=== PATIENT | male | born 1945 | race Caucasian/White ===

== ENCOUNTER 2016-12-05 07:54 | Inpatient (IN) | payer OTHER, MEDICARE ==
[~2016-12-05 07:54] MED LIST: ACETAMINOPHEN 325 MG TAB PO ONE; CEFAZOLIN 2 GM/DEXTR 100 ML IV ONE; CHLORHEXIDINE GLUC HIBICLENS 118 ML BTL TP ONE; DEXAMETHASONE 4 MG/ML VIAL IVP ONE; FAMOTIDINE 20 MG TAB PO ONE; ROPI IU ONE; SKIN ADHESIVE (DERMABOND) 1 EACH TP ONE; TRANEXAMIC ACID 3,000 MG in NS 50 ML IRR ONE; TRANEXAMIC ACID 3,000 MG/50 ML BAG IRR ONE; VANCOMYCIN 1 GM VIAL IV ONE; [UNRECOGNIZED DRUG - OTHER] IU ONE
[2016-12-05] MEDS ORDERED: DEXAMETHASONE 4 MG/ML VIAL ONE ×2 (08:22→09:56)
[2016-12-05] MEDS ORDERED: FAMOTIDINE 20 MG TAB ONE (08:22)
[2016-12-05] MEDS ORDERED: ACETAMINOPHEN 325 MG TAB ONE (08:22)
[2016-12-05] MEDS ORDERED: LIDOCAINE 1% 5 ML SDV ONE (08:23)
[2016-12-05] MEDS ORDERED: LR 1,000 ML IV ONE (08:55)
[2016-12-05] MEDS ORDERED: LIDOCAINE 1% 5 ML SDV ID PRN (08:55)
[2016-12-05] MEDS ORDERED: PROPOFOL/EMULSION 500 MG/50 ML BOTTLE IV ONE (09:51)
[2016-12-05] MEDS ORDERED: fentaNYL 100 MCG/2 ML INJ ONE ×3 (09:51→12:40)
[2016-12-05] MEDS ORDERED: MIDAZOLAM 2 MG/2 ML VIAL ONE (09:54)
[2016-12-05] MEDS ORDERED: HYDROmorphONE/DILAUDID 2 MG/ML INJ ONE (10:29)
[2016-12-05] MEDS ORDERED: epHEDrine SULFATE 10 MG/ML SYR ONE ×2 (10:34→10:40)
[2016-12-05] MEDS ORDERED: VASOPRESSIN 20 UNIT/ML VIAL ONE (10:40)
[2016-12-05] MEDS ORDERED: ONDANSETRON 4 MG/2 ML VIAL ONE (11:32)
[2016-12-05] MEDS ORDERED: DIPHENOXYLATE/ATROPINE LOMOTIL 1 TAB PO PRN (11:37)
[2016-12-05] MEDS ORDERED: METOCLOPRAMIDE 10 MG/2 ML VIAL IVP PRN (11:37)
[2016-12-05] MEDS ORDERED: PROMETHAZINE HCL 25 MG/ML INJ IVP PRN (11:37)
[2016-12-05] MEDS ORDERED: PROMETHAZINE HCL 25 MG SUPPR PR PRN (11:37)
[2016-12-05] MEDS ORDERED: MAGNESIUM HYDROXIDE 30 ML UDCUP PO PRN (11:37)
[2016-12-05] MEDS ORDERED: POLYETHYLENE GLYCOL 3350 17 GM PKT PO PRN (11:37)
[2016-12-05] MEDS ORDERED: CYCLOBENZAPRINE 10 MG TAB PO PRN (11:37)
[2016-12-05] MEDS ORDERED: ONDANSETRON 4 MG/2 ML VIAL IVP PRN (11:37)
[2016-12-05] MEDS ORDERED: ONDANSETRON DISINTEGRATING 4 MG TAB PO PRN (11:37)
[2016-12-05] MEDS ORDERED: LACTULOSE 20 GM/30 ML UDCUP PO PRN (11:37)
[2016-12-05] MEDS ORDERED: PHARMACY PAIN CONSULT 1 EA MISC PRN (11:37)
[2016-12-05] MEDS ORDERED: TEMAZEPAM 15 MG CAP PO PRN (11:37)
[2016-12-05] MEDS ORDERED: diphenhydrAMINE 25 MG CAP PO PRN (11:37)
[2016-12-05] MEDS ORDERED: BISACODYL 10 MG SUPP PR PRN (11:37)
--- NOTE | 2016-12-05 11:37 | POSTOPPROG ---
Post Op Note Date of Operation: 12/05/16 Surgeon: Judith Hurt Production Tester: jose martin hurt Anesthesiologist: dr. melchor Anesthesia: Spinal Pre-op Diagnosis: R knee OA Post-op Diagnosis: same Indication: right knee pain due to OA that failed conservative measuresq Procedure: R TKA Findings: severe knee OA Inf/Abcess present in the surg proc area at time of surgery?: No EBL: 50-100
[2016-12-05] MEDS ORDERED: HYDROmorphONE/DILAUDID 1 MG/ML SYR ONE (11:58)
[2016-12-05] MEDS ORDERED: LR 1,000 ML IV SCH (12:00)
[2016-12-05] MEDS ORDERED: oxyCODONE IR 5 MG TAB ONE (12:13)
[2016-12-05] MEDS ORDERED: ceFAZolin 2 GM/DEXTROSE 100 ML IV SCH (14:00)
[2016-12-05] MEDS: ACETAMINOPHEN 325 MG TAB PO SCH ×3 (14:19→23:56)
[2016-12-05] MEDS: oxyCODONE IR 5 MG TAB PO PRN ×3 (15:12→21:05)
[2016-12-05] MEDS ORDERED: WARFARIN SODIUM 5 MG TAB PO SCH (16:00)
[2016-12-05] MEDS: ceFAZolin 2 GM in D5W 100 ML IV SCH ×2 (17:00→22:44)
[2016-12-05] MEDS ORDERED: ATORVASTATIN CALCIUM 20 MG TAB PO SCH (18:00)
[2016-12-05] MEDS ORDERED: NON-FORMULARY NEW DRUG (Omeprazole [Prilosec 20 Mg] 20 MG) PO SCH (18:00)
[2016-12-05] MEDS ORDERED: PANTOPRAZOLE SODIUM 40 MG TAB PO SCH (18:00)
--- NOTE | 2016-12-05 19:03 | GOP ---
DATE OF OPERATION: 12/05/2016 SURGEON: Tom Gonzales MD MASONRY INSPECTOR: YOVANY Meza ANESTHESIA: Spinal. PREOPERATIVE DIAGNOSIS: Right knee osteoarthritis. POSTOPERATIVE DIAGNOSIS: Right knee osteoarthritis. PROCEDURE PERFORMED: Right total knee arthroplasty. FINDINGS: ESTIMATED BLOOD LOSS: 30 cc. INDICATIONS: This is a 71-year-old male with severe and progressive pain and deformity of the right knee unresponsive to conservative care. Risks and benefits of the surgical intervention were expla ined in detail. DESCRIPTION OF PROCEDURE: The patient was brought to the operative room and placed on the table in the supine position. Spinal anesthesia was induced without difficulty. A pneumatic tourniquet was applied about the right proximal thigh, and the leg was prepped and draped in a sterile fashion. Th e leg montgomery was applied. After exsanguination by elevation the tourniquet was inflated to 250 mm o f mercury. Incision was made anterior medial from the tibial tuberosity to a point 2 cm proximal to the superio r pole of the patella. Medial parapatellar arthrotomy was carried out from the superior pole of the patella and posteriorly in line with the fibers of the Type II VMO. The medial collateral ligament was elevated and the infrapatellar fat pad was resected. The patella was everted and the articular surface was excised. A 35 mm patellar button was placed. The distal femoral guide hole was drilled and the 6-degree alignment cherry was placed. A 10 mm distal femoral cut was made without difficulty. Attention was turned to the tibia and a standard 6 mm cut based on the distal and medial tibial cond yle was performed. The tibial articular surface was excised without difficulty. Attention was turned back to the femur and a size 5 Triathlon femoral cutting block was positioned. Anterior, posterior, and chamfer cuts were made, followed by the intercondylar box cut. The knee was extended and the remnants of the medial and lateral meniscus were excised. The posteri or capsule was injected with ropivacaine, epinephrine and Toradol. A size 6 MIS Mini-keel tibial tr ay was positioned. Trial reduction was then carried out. There was excellent range of motion, alig nment, and stability using the 9 mm polyethylene. All trials were then removed. The joint was thoroughly irrigated and carefully dried. Two packages of cement and 2 grams of vancomycin were mixed in the vacuum mixer and placed on the fixation surfa diana of all surfaces of the components. The components were implanted and all excess cement was thor oughly removed. The permanent 9 mm polyethylene was placed without difficulty. The tourniquet was deflated and all bleeders were coagulated. The wound was thoroughly irrigated an d closed using interrupted sutures of 2-0 Vicryl for the joint capsule. The subcu was closed with 3 -0 Vicryl and the skin with 4-0 Monocryl. Dermabond and Steri-Strips were applied followed by a com pressive dressing. The patient was then moved from the operating room to the recovery room in good condition, having tolerated the procedure well. PATHOLOGY: Severe lateral and patellofemoral osteoarthritis. /[id number]/MODL
[2016-12-05] MEDS: SENNOSIDES/DOCUSATE SODIUM TAB PO SCH (21:05)
[2016-12-06 00:46] VITALS: O2SAT 96
[2016-12-06] MEDS ORDERED: ceFAZolin 2 GM in D5W 100 ML IV SCH (01:00)
[2016-12-06] MEDS: ACETAMINOPHEN 325 MG TAB PO SCH ×2 (05:16→11:21)
[2016-12-06 05:31] LABS: HEMATOCRIT 32.8 % (40.0-51.0); HEMOGLOBIN 10.8 g/dL (13.7-17.5)
[2016-12-06 05:49] LABS: ANION GAP 9 mEq/L (8-16); CALCIUM 8.7 mg/dL (8.5-10.4); CARBON DIOXIDE 22 mEq/l (22-31); CHLORIDE 105 mEq/L (97-110); CREATININE 1.8 mg/dL (0.7-1.3); GLOMERULAR FILTRATION RATE 37; GLUCOSE 146 mg/dL (70-100); POTASSIUM 5.3 mEq/L (3.5-5.2); SODIUM 136 mEq/L (134-144)
[2016-12-06 05:52] LABS: INR 1.12 (0.83-1.16); PROTIME(PATIENT) 14.3 SEC (12.0-15.0)
[2016-12-06 07:52] VITALS: BP 103/59; PULSE 66; RESP 18; TEMP 97.7
[2016-12-06] MEDS: oxyCODONE IR 5 MG TAB PO PRN ×2 (08:05→12:24)
[2016-12-06] MEDS: SENNOSIDES/DOCUSATE SODIUM TAB PO SCH (08:06)
[2016-12-06] MEDS ORDERED: ENOXAPARIN 40 MG/0.4 ML SYR SC SCH (09:00)
[2016-12-06] MEDS ORDERED: FAMOTIDINE 20 MG TAB PO SCH (09:00)
--- NOTE | 2016-12-06 09:29 | SOAPPROG ---
SOAP Progress Note Assessment/Plan: Assessment: Patient is doing well POD 1 s/p R TKA 1.Pain management: pain is well controlled on oral pain meds 2.Anemia: level is expected initially postop. Asymptomatic. Cont to monitor for symptoms 3.VTE ppx: recommend coumadin and lovenox. INR today 1.12 Cont [facility] hosmindy and SCD 4. d/c planning: d/c to home today pending release from PT. 5. CKD: stable. prior to surgery Cr was 1.9, today 1.8 Plan: 12/06/16 09:26 Subjective: Eliel is doing well today, denies SOB, chest pain and N/V. Objective: Vital Signs Temp Pulse Resp BP Pulse Ox 36.5 C 66 18 103/59 L 96 12/06/16 07:51 12/06/16 07:51 12/06/16 07:51 12/06/16 07:51 12/06/16 07:51 Laboratory Results 12/06/16 04:26 12/06/16 04:26 12/05/16 12/06/16 12/07/16 05:59 05:59 05:59 Intake Total 2955 Output Total 1105 Balance 1850 PT 14.3 SEC (12.0-15.0) 12/06/16 04:26 INR 1.12 (0.83-1.16) 12/06/16 04:26 RLE: incision dressing is clean and dry, NVI, +pf/df ICD10 Worksheet Patient Problems: Problems Problem Status Onset Primary localized osteoarthritis of right knee Acute History of primary bladder cancer Chronic Parastomal hernia of ileal conduit Chronic
--- NOTE | 2016-12-06 10:05 | GDS ---
ADMISSION DIAGNOSIS: Right knee osteoarthritis. DISCHARGE DIAGNOSIS: Right knee osteoarthritis. PROCEDURE: Right total knee arthroplasty. VTE PROPHYLAXIS: Coumadin and Lovenox recommended. BRIEF DESCRIPTION OF HOSPITAL STAY: Patient was admitted for an elective joint arthroplasty. The p atient tolerated the procedure well and has passed physical therapy. The patient was given appropri ate antibiotic prophylaxis and venous thromboembolism prophylaxis. The patient's pain was well cont rolled on oral pain medication, patient was holding down food, and had urinated. Decision was made to discharge the patient. The patient was given post-operative prescriptions pre-operatively. PLAN: To follow up with Dr. Gonzales at [facility] in 2 to 3 weeks. /[id number]/MODL
== END 2016-12-06 12:37 | disposition home or self-care (01) | DRG 470 ==
LOC: F3N 07:54
PROVIDERS: ADMIT Orthopaedic Surgery; ATTEND Orthopaedic Surgery
PROC: 0SRC0J9 Replacement of Right Knee Joint with Synthetic Substitute, Cemented, Open Approach (ICD-10-PCS; principal; 2016-12-05 10:15)
DX: M17.11 Unilateral primary osteoarthritis, right knee (principal); I12.9 Hypertensive chronic kidney disease with stage 1 through stage 4 chronic kidney disease, or unspecified chronic kidney disease; N18.9 Chronic kidney disease, unspecified; E78.5 Hyperlipidemia, unspecified
CPT/HCPCS: 97110-GP; 97116-GP; 97161-GP; 97166-GO; 97530-GP; C1713; G8978-GP-CI; G8978-GP-CJ; G8979-GP-CI; G8980-GP-CI; G8987-GO-CI; G8988-GO-CI; G8989-GO-CI; J0171; J0690; J1100; J1170; J1650; J2250; J2405; J2704; J2795; J3010; J3370

== ENCOUNTER → 2017-04-02 | Outpatient (CLI) | payer OTHER, MEDICARE | LOC: FIMAGING 14:33 | PROVIDERS: ATTEND Neurological Surgery | DX: M48.04 Spinal stenosis, thoracic region (principal); M48.06 Spinal stenosis, lumbar region; M48.07 Spinal stenosis, lumbosacral region; M51.34 Other intervertebral disc degeneration, thoracic region; M43.07 Spondylolysis, lumbosacral region; M51.26 Other intervertebral disc displacement, lumbar region; M51.36 Other intervertebral disc degeneration, lumbar region ==

== ENCOUNTER 2017-04-05 09:31 | Inpatient (IN) | payer OTHER, MEDICARE ==
--- NOTE | 2017-04-05 10:49 | PDHPUP ---
History & Physical Update H&P update statement: This history and physical update is based on an assessment of the patient which was completed after admission or registration (within 24 hours), but prior to the surgery/procedure. H&P update: H&P reviewed & patient examined, no change in patient's condition since H&P completed
[2017-04-05] MEDS ORDERED: ceFAZolin 2 GM/DEXTROSE 100 ML IV ONE (10:50)
[2017-04-05] MEDS ORDERED: LR 1,000 ML IV ONE (10:57)
[2017-04-05] MEDS ORDERED: NS 1,000 ML IV ONE (11:10)
[2017-04-05] MEDS ORDERED: BUPIVACAINE/EPI 0.5% 30 ML SDV ONE (11:11)
[2017-04-05] MEDS ORDERED: LIDOCAINE 1% 300 MG/30 ML SDV ONE (11:12)
--- NOTE | 2017-04-05 11:12 | PDANEPAE ---
ANE History of Present Illness Ventral hernia ANE Past Medical History - Cardiovascular History Hx Hypertension: No Hx Arrhythmias: Yes Hx Chest Pain: No Hx Coronary Artery / Peripheral Vascular Disease: No Hx CHF / Valvular Disease: No Hx Palpitations: No Cardiovascular History Comment: episodes of A fib - takes Atenolol PRN - Pulmonary History Hx COPD: No Hx Asthma/Reactive Airway Disease: No Hx Recent Upper Respiratory Infection: No Hx Oxygen in Use at Home: No Hx Sleep Apnea: No Sleep Apnea Screening Result - Last Documented: Negative - Neurologic History Hx Cerebrovascular Accident: No Hx Seizures: No Hx Dementia: No - Endocrine History Hx Diabetes: No - Renal History Hx Renal Disorders: Yes Renal History Comment: Ileal conduit-R urostomy bag. kidney failure April- hosp 31 days.[facility]. currently kidneys functioning - Creat 1.5-1.7 Dr Bentley/Keyla Neph.F/U - Liver History Hx Hepatic Disorders: No - Neurological & Psychiatric Hx Hx Neurological and Psychiatric Disorders: Yes Neurological / Psychiatric History Comment: severe spinal stenosis-L5/S1. pain in R hip/buttock, R low spine pain while walking - Cancer History Hx Cancer: No Cancer History Comment: bladder, s/p cystectomy in 2009 - Congenital Disorder History Hx Congenital Disorders: No - GI History GERD: moderate (On prilosec every other day) Hx Gastrointestinal Disorders: Yes Gastrointestinal History Comment: blockage of intestines April. acid reflux - Other Health History Other Health History: OA L knee - Chronic Pain History Chronic Pain: Yes (low back, right hip) - Surgical History Prior Surgeries: R total knee 12-05-16. TURBT cystectomy ([place]) Dr Bolden,3-10 , Parastomal hernia repair w/mesh 05-03-16, Diaylsis cath placement R I.J. .Bilat knee scopes 2009, R total hip 2004.L5/S1 laminectomies x2 1994,1995. ANE Review of Systems - Exercise capacity Exercise capacity: >=4 METS (slow moving due to back pain) METS (RN): 4 METS - Systems Cardiac: Reports: irregular heart rate (hx of atrial fibrillation), palpitations (occassional episodes) ANE Patient History - Allergies Allergies/Adverse Reactions: morphine [Morphine] Allergy (Intermediate, Verified 02/12/17 13:14) IV MORPHINE MAKES HIM DIZZY NSAIDS (Non-Steroidal Anti-Inflamma Allergy (Verified 02/12/17 14:04) Other-Enter Comments - Home Medications Home medications: home medication list seen and reviewed Home Medications: Atorvastatin Calcium [Lipitor 20 mg (*)] 20 mg PO DAILY18 04/29/16 [Last Taken 12/04/16 22:00] Omeprazole [Prilosec 20 mg] 20 mg PO Q2D@1800 11/12/16 [Last Taken 12/03/16] Acetaminophen [Tylenol 325mg (*)] 325 mg PO DAILY PRN 02/08/17 [Last Taken Unknown] Aspirin [Aspirin 81mg (*)] 81 mg PO DAILY 02/08/17 [Last Taken Unknown] Atenolol [Tenormin 25 mg (*)] 25 mg PO DAILY PRN 02/08/17 [Last Taken Unknown] - NPO status NPO Since - Liquids (Date): 04/05/17 NPO Since - Liquids (Time): 09:00 NPO Since - Solids (Date): 04/04/17 NPO Since - Solids (Time): 21:00 - Anes Hx Hx Anesthesia Complications (with details): patient reports onset of acute renal failure following his surgery for parastomal hernia repair in April - Smoking Hx Smoking Status: Former smoker (stopped 40 years ago) Marijuana use: No - Alcohol Use Alcohol Use: Other (1 drink per day) - Family Anes Hx Family Anes Hx: none ANE Labs/Vital Signs - Vital Signs Blood Pressure: 168/92 Heart Rate: 72 Respiratory Rate: 18 O2 Sat (%): 96 Height: 182.88 cm Weight: 106.594 kg ANE Physical Exam - Airway Neck exam: FROM Mallampati Score: Class 2 Mouth exam: poor dentition (Three Loose lower front teeth) - Pulmonary Pulmonary: clear to auscultation - Cardiovascular Cardiovascular: regular rate and rhythym - ASA Status ASA Status: III ANE Anesthesia Plan Anesthesia Plan: general endotracheal anesthesia (Discussed clear possibility of having to remove loose lower teeth for patient's safety) Specialized Airway: video laryngoscope
[2017-04-05 11:56] LABS: % IMMATURE GRANULYOCYTES 0.6 % (0.0-1.1); ABSOLUTE IMMATURE GRANULOCYTES 0.05 10^3/uL (0.00-0.10); ADD DIFF? NO; ADD MORPH? NO; ADD SCAN? NO; ATYPICAL LYMPHOCYTE FLAG 0 (0-99); FRAGMENT RBC FLAG 0 (0-99); HEMATOCRIT 38.2 % (40.0-51.0); HEMOGLOBIN 12.7 g/dL (13.7-17.5); LEFT SHIFT FLG 10 (0-99); LIPEMIA HEMOLYSIS FLAG 80 (0-99); MEAN CELL HEMOGLOBIN 35.2 pg (27.9-34.1); MEAN CELL HEMOGLOBIN CONCENTR. 33.2 g/dL (32.4-36.7); MEAN CELL VOLUME 105.8 fL (81.5-99.8); MEAN PLATELET VOLUME 8.7 fL (8.7-11.7); PLATELET CLUMPS FLAG 0 (0-99); PLATELET COUNT 251 10^3/uL (150-400); RED BLOOD CELL COUNT 3.61 10^6/uL (4.40-6.38); RED CELL DISTRIBUTION WIDTH 13.7 % (11.5-15.2)
[2017-04-05] MEDS ORDERED: MIDAZOLAM 2 MG/2 ML VIAL IVP ONE (12:03)
[2017-04-05] MEDS ORDERED: fentaNYL 100 MCG/2 ML INJ ONE ×5 (13:43→16:03)
[2017-04-05] MEDS ORDERED: PROPOFOL 200 MG/20 ML VIAL ONE ×6 (13:43→16:45)
[2017-04-05] MEDS ORDERED: SUCCINYLCHOLINE CHLORIDE*ANESTHESIA ONLY*200 MG/10 ML SYR IVP ONE (13:44)
[2017-04-05] MEDS ORDERED: ROCURONIUM 50 MG/5 ML VIAL ONE ×2 (13:44→14:50)
[2017-04-05] MEDS ORDERED: DEXAMETHASONE 4 MG/ML VIAL ONE (13:45)
[2017-04-05] MEDS ORDERED: ALBUMIN 5% 250 ML BOTTLE IV ONE (17:13)
[2017-04-05] MEDS ORDERED: ONDANSETRON 4 MG/2 ML VIAL ONE (17:15)
[2017-04-05] MEDS ORDERED: epHEDrine SULFATE 10 MG/ML SYR ONE (17:21)
[2017-04-05] MEDS ORDERED: PROPOFOL/EMULSION 500 MG/50 ML BOTTLE IV ONE (17:28)
[2017-04-05] MEDS ORDERED: GLYCOPYRROLATE 0.2 MG/1 ML VIAL ONE ×2 (17:40→17:47)
[2017-04-05] MEDS ORDERED: NEOSTIGMINE METHYLSULFATE 5 MG/5 ML SYR ONE (17:40)
--- NOTE | 2017-04-05 18:00 | POSTOPPROG ---
Post Op Note Date of Operation: 04/05/17 Surgeon: Darrell Palencia Telesales Manager: Christin Wynn PA-C Anesthesiologist: Eleazar Joseph MD Anesthesia: GET(General Endotracheal) Pre-op Diagnosis: incisional hernia Post-op Diagnosis: same Procedure: repair incis hernia, takedown ECF, mesh placement Findings: extensive visceral adhesions Inf/Abcess present in the surg proc area at time of surgery?: Yes Depth: Organ Space Total fluids administered: 2.7L crystalloid, 500cc albumin Complications: no immediate Drains: Guillermo Le Specimen(s): none
[2017-04-05] MEDS ORDERED: fentaNYL/NACL 100 ML IV SCH (18:07)
[2017-04-05] MEDS ORDERED: D5W LR 1,000 ML IV SCH (18:15)
[2017-04-05] MEDS ORDERED: PROPOFOL/EMULSION 1,000 MG/100 ML BOTTLE IV ONE (18:26)
[2017-04-05] MEDS ORDERED: fentanYL/NACL/100 ML BAG IV ONE (18:27)
[2017-04-05] MEDS ORDERED: PROPOFOL/EMULSION 100 ML IV SCH (18:30)
[2017-04-05 19:20] LABS: HEMATOCRIT 38.7 % (40.0-51.0); HEMOGLOBIN 12.8 g/dL (13.7-17.5)
[2017-04-05 20:00] LABS: ANION GAP 12 mEq/L (8-16); CALCIUM 8.6 mg/dL (8.5-10.4); CARBON DIOXIDE 17 mEq/l (22-31); CHLORIDE 108 mEq/L (97-110); CREATININE 1.6 mg/dL (0.7-1.3); GLOMERULAR FILTRATION RATE 43; GLUCOSE 165 mg/dL (70-100); MAGNESIUM 1.6 mg/dL (1.6-2.3); SODIUM 137 mEq/L (134-144)
--- NOTE | 2017-04-05 20:33 | GOP ---
[f rep st] OPERATIVE REPORT DATE OF OPERATION: 04/05/2017 SURGEON: Darrell Palencia MD ENGINEERING DIRECTOR: Christin Fajardo PA-C. ANESTHESIA: General. ANESTHESIOLOGIST: Dr. Joseph PREOPERATIVE DIAGNOSIS: Symptomatic incisional hernia. POSTOPERATIVE DIAGNOSIS: Symptomatic incisional hernia. PROCEDURE PERFORMED: 1. Complex ventral herniorrhaphy with bi-layered mesh placement (Symbotex, Strattice). 2. Takedown of enterocutaneous fistula x2. 3. Partial revision of parastomal hernia. FINDINGS: See below. INDICATIONS: 72-year-old male with a significant history for an incarcerated para-ileal conduit hernia. He underwent repair last year. His postoperative course was complicated by renal failure, as well as an enterocutaneous fistula formation. He was on dialysis for multiple months. His kidneys have fully recovered, allowing him to be taken off hemodialysis. He has developed a midline ventral hernia at his prior surgical site. This hernia has caused increased difficulty maintaining his ileal conduit appliance and with increasing discomfort. He is undergoing surgical repair at this time. Surgical risks and benefits were discussed at length with the patient and in detail. These are including, but not limited to, bleeding, infection, bowel injury, recurrence, need for additional surgical intervention as well as heightened risk for recurrent renal failure, respiratory failure or cardiac morbidity. All questions were entertained. He desires to proceed. DESCRIPTION OF PROCEDURE: General anesthesia was induced. The prior midline incision was elliptically excised. The hernia sac was entered. Extensive time was spent lysing the abdominal wall adhesions. These were taken far laterally to bilateral flanks. There were 2 areas with prior enterocutaneous fistula formation coursing toward the small bowel and colon. The communications were easily able to be dissected off the abdominal wall and taken back toward the colon and small bowel proper. The residual tract and associated abscess cavities were excised, and both areas were oversewn overlying the intestines. Intestinal resection was not necessary as the proximal ends were all noted to be sealed. Additional adhesions were taken down along the prior parastomal hernia placement. The prior mesh repair was mostly intact. There was an area of partial separation medially. The 2 leaflets of the bryan-holed mesh were subsequently re-anchored together using Prolene suture, allowing for reinforcement of the prior closure site. The defect measured approximately 30 cm vertically. As the midline fascia was able to be snugly pulled together in the midline, I opted not to proceed with component separation. A 37 cm Symbotex mesh was brought to the field. This was placed in the abdominal cavity. Skin flaps were widely dissected out and all nonviable skin was completely excised. Using multiple interrupted horizontal mattress sutures , the mesh was anchored far laterally within bilateral flanks. The mesh was bryan -holed and wrapped around the prior parastomal hernia repair and incorporated into the previous closure. At this point, the midline fascia was subsequently reapproximated using multiple interrupted horizontal mattress sutures as well. This allowed for the mesh to be completely involved within the soft tissue, and full midline closure was subsequently obtained albeit under moderate tension. Given the high risk nature of the patient's prior perioperative course and mild tension in the closure, a secondary layer of a Strattice mesh was brought to the field. This was 20 cm. It was cut in half. This was placed along the anterior aspect of the closure line and secured with multiple interrupted 0 Vicryl sutures as well, allowing for a sandwich closure. Satisfactory hemostasis was assured. The wound was closed over two 10-flat Guillermo-Le drains, followed by skin cayden. The patient was taken to the intensive care unit and intubated in satisfactory condition with plans for delayed extubation. Copy requested to: Dani Magaña MD /[id number]/MODL MTDD
[2017-04-05] MEDS ORDERED: FAMOTIDINE 20 MG/NACL 50 ML IV SCH (21:00)
[2017-04-05] MEDS: CHLORHEXIDINE GLUCONATE 15 ML UDL PO SCH (21:05)
[2017-04-05 21:44] LABS: BASE EXCESS -9.1 mEq/L (-2.5-2.5); BICARBONATE 17 mEq/L (22-26); MEASURED OXYGEN SATURATION 95 % (92-95); PCO2 42 mmHg (34-38); PO2 95 mmHg (65-75); TCO2 19 mEq/L (23-27)
[2017-04-05 21:45] LABS: ASSIST CONTROL YES; END TIDAL CO2 42; O2 CONCENTRATIION 40 % (0-100); P/F RATIO 238 RATIO; TOTAL RATE 15
--- NOTE | 2017-04-05 22:29 | POSTANESTH ---
Post Anesthetic Evaluation Cardiovascular Status: Normal, Stable Respiratory Status: Requires Airway Assist Level of Consciousness/Mental Status: Unconscious Pain Control: Adequate, Prn Tx Ordered Nausea/Vomiting Control: Adequate, Prn Tx Ordered Complications Possibly Related to Anesthesia: None Noted Notes: Pt. was stable throughout the case, however, with abdominal closure there was an increase in peak airway pressure from around 17to 23 associated with a transient decrease in BP, which improved with ephedrine and albumin. After emergence from anesthesia, patient was unable to produce TV >250ml in spite of having no evidence of residual neromuscular and being able to follow simple commands. the decision was made to keep the patient intubated and sedated overnight and to extubate in the morning. Discussed with Dr. Palencia.
[2017-04-05] MEDS ORDERED: NS 1,000 ML IV SCH (23:30)
[2017-04-06] MEDS: METOPROLOL TARTRATE 5 MG/5 ML INJ IVP SCH ×4 (00:10→19:35)
[2017-04-06 04:35] LABS: HEMATOCRIT 34.8 % (40.0-51.0); HEMOGLOBIN 11.4 g/dL (13.7-17.5); MEAN CELL HEMOGLOBIN 35.1 pg (27.9-34.1); MEAN CELL HEMOGLOBIN CONCENTR. 32.8 g/dL (32.4-36.7); MEAN CELL VOLUME 107.1 fL (81.5-99.8); RED BLOOD CELL COUNT 3.25 10^6/uL (4.40-6.38); RED CELL DISTRIBUTION WIDTH 13.9 % (11.5-15.2)
[2017-04-06 04:52] LABS: ANION GAP 10 mEq/L (8-16); CALCIUM 8.4 mg/dL (8.5-10.4); CARBON DIOXIDE 17 mEq/l (22-31); CHLORIDE 110 mEq/L (97-110); CREATININE 2.2 mg/dL (0.7-1.3); GLOMERULAR FILTRATION RATE 30; GLUCOSE 152 mg/dL (70-100); MAGNESIUM 1.5 mg/dL (1.6-2.3); POTASSIUM 5.3 mEq/L (3.5-5.2); SODIUM 137 mEq/L (134-144)
[2017-04-06] MEDS: CHLORHEXIDINE GLUCONATE 15 ML UDL PO SCH (08:34)
[2017-04-06] MEDS: ENOXAPARIN 40 MG/0.4 ML SYR SC SCH (08:35)
[2017-04-06] MEDS: PANTOPRAZOLE SODIUM 40 MG in NS 100 ML IV SCH (08:35)
--- NOTE | 2017-04-06 09:24 | SOAPPROG ---
SOAP Progress Note Assessment/Plan: Assessment: no overnight issues. comfortable. AVSS. alert, appropriate, intubated. heart regular. lungs clear. abd soft, dist. dressings dry. ANDREW serosang. urine clear. Cr 2.2, K 5.3. Hb 11. POD #1 s/p abd wall reconstruction with mesh. CRI - elev creat, good UOP, will cont IVF, K removed last evening, will consult nephrology for assistance (sees Dr. Maldonado regularly). Tx floor once extubated. Diet as able. Plan: 04/06/17 09:22 Objective: Vital Signs Temp Pulse Resp BP Pulse Ox 36.2 C 64 18 97/71 L 97 04/06/17 04:00 04/06/17 06:00 04/06/17 06:00 04/06/17 06:00 04/06/17 06:00 Laboratory Results 04/06/17 04:25 04/06/17 04:25 04/05/17 04/06/17 04/07/17 05:59 05:59 05:59 Intake Total 2030 Output Total 490 Balance 1541 ICD10 Worksheet Patient Problems: Problems Problem Status Onset Primary localized osteoarthritis of right knee Acute History of primary bladder cancer Chronic Parastomal hernia of ileal conduit Chronic
[2017-04-06] MEDS: OXYCODONE/APAP 5/325 TAB PO PRN ×3 (11:38→16:23)
[2017-04-06 11:42] LABS: ANION GAP 10 mEq/L (8-16); CALCIUM 7.2 mg/dL (8.5-10.4); CARBON DIOXIDE 16 mEq/l (22-31); CHLORIDE 115 mEq/L (97-110); GLOMERULAR FILTRATION RATE 33; GLUCOSE 107 mg/dL (70-100); POTASSIUM 4.9 mEq/L (3.5-5.2); SODIUM 141 mEq/L (134-144)
[2017-04-06] MEDS: HYDROmorphONE/DILAUDID 2 MG/ML INJ IVP PRN ×2 (13:29→19:34)
--- NOTE | 2017-04-06 14:20 | GCON ---
[f rep st] CONSULTATION PULMONARY CRITICAL CARE CONSULTATION REASON FOR CONSULTATION: Ventilator management. HISTORY: The patient is a 72-year-old gentleman who had a large ventral hernia repair yesterday by Dr. Palencia. He was returned to the intensive care unit intubated and on the ventilator. 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 He was eventually discharged after 1 month to a long -term acute care facility. His course in the last 1 year has been good. He has chronic renal insufficiency with a baseline creatinine of approximately 1.5 by report. He is followed by renal as an outpatient. He has a history of multiple other medical problems as outlined below. Overnight he did well on the ventilator. He has been sedated with propofol and fentanyl. When these are decreased, he is arousable and responsive. He is on 40% FiO2 and tolerating a CPAP wean without problems. PAST MEDICAL HISTORY: This is remarkable for bladder cancer. He is status post cystectomy and has an ileal conduit. He had a parastomal hernia a year ago that resulted in his bowel obstruction and need for surgery at that time. There is a history of hypertension, chronic renal insufficiency. and gastroesophageal reflux disease. Home MEDICATIONS on admission included: Prilosec, Lipitor, Tenormin, aspirin, and Tylenol. PAST SURGICAL HISTORY: That includes cystectomy with ileal conduit, a history of lumbar spinal surgery, exploratory laparotomy 1 year ago, right hip surgery, and previous repair of a midline ventral hernia. SOCIAL HISTORY: The patient is . He is retired. Tobacco is negative. He drinks alcohol occasionally. FAMILY HISTORY: Noncontributory. REVIEW OF SYSTEMS: Unobtainable. PHYSICAL EXAMINATION: GENERAL: Reveals a gentleman who is intubated, on the ventilator and sedated. He does arouse. VITAL SIGNS: Blood pressure is 100/70, heart rate 65 with sinus rhythm on the monitor. Respiratory rate is 18 on the ventilator. Saturations are 96% on 40% FiO2. He is afebrile. HEENT: Unremarkable for lymphadenopathy or thyromegaly. The oral endotracheal tube is in place. Pupils appear equal. An orogastric tube is in place. CHEST: Clear. Breath sounds are diminished at the bases. HEART: Regular in rate and rhythm. There are no gallops, no significant murmurs. ABDOMEN: Dressed postoperatively, distended and quiet. A urostomy catheter is in place. Guillermo-Le drains are in place. EXTREMITIES: No significant edema, no cords obvious. NEUROLOGIC: Appears to be nonfocal. He moves all extremities, responds to simple commands. LABORATORY AND X-RAY DATA: Chest x-ray shows some hypoventilatory changes and left lower zone atelectasis, possibly a pleural reaction or small pleural effusion on the left.Arterial blood gas postoperatively showed a pH of 7.24, pCO2 42, PO2 95 on 40% oxygen, rate of 15 on the ventilator. White blood cell count is 12,000, hematocrit 34.8, down from 38 on admission. Platelets are normal. Chemistry shows a sodium 137, potassium 5.3, CO2 17, BUN 39, up from 34 on admission with a creatinine of 2.2, up from 1.6 on admission. Magnesium is low at 1.5. ASSESSMENT: 1. Acute postoperative respiratory insufficiency. The patient is doing well. He is being weaned on CPAP. He is on 40% with a chest x-ray this morning not showing any significant impediments to extubation. If weaning parameters are acceptable after 1 hour CPAP wean, he will be extubated. 2. Status post large ventral hernia repair. He is doing well postoperatively. 3. Renal insufficiency. Creatinine has risen from 1.6 to 2.2 currently. Renal consultation has been requested. The patient is known by Renal and did require hemodialysis a year ago following surgery complicated by acute renal failure. 4. History of bladder cancer with cystectomy, ileal conduit. 5. Metabolic: Hyperkalemia with a mild non-anion gap acidosis. Follow. Other issues include borderline blood sugars and magnesium which will also be followed. 6. History of other medical problems as outlined above. PLAN AND RECOMMENDATIONS: The patient will be extubated if weaning parameters are acceptable. Renal consultation will be obtained. Intravenous fluids will be continued. Propofol will be discontinued, fentanyl continued for pain control as needed. Enoxaparin will be given for DVT prophylaxis and pantoprazole, continued intravenously for now until he is taking p.o.'s adequately. /[id number]/MODL and [id number]/MODL [facility]
--- NOTE | 2017-04-06 14:44 | PDCONSULT ---
Bookkeeper Receptionist Note: Assessment/Plan: KB on CKD stage 3: pt with baseline Cr around 1.6, now POD#1 from hernia repair with Cr up to 2.2, already down to 2.0 with IVFs and has good UOP. - No need for HD. - Will continue IVFs, change to 1/2NS @ 125ml/hr. - Will continue to monitor. - Avoid hypotension, NSAIDs, demerol, fleets, aminoglycosides, contrast, ACEI/ ARB, morphine, and other nephrotoxins. Hyperkalemia: K already improved from 5.3 to 4.9, will continue to monitor. Metabolic acidosis: largely due to KB on CKD, also hyperchloremic, will change fluids as above and continue to monitor. Anemia: Hgb 11.4, no need for epo, will monitor. Thank you for the interesting consult. Nephrology will continue to follow, please call with any additional questions or concerns. H & P HPI/ROS: HPI: Mr. Rincon is a 72 yo M with h/o bladder cancer s/p cystectomy and ileal conduit with recurrent ventral hernia who was admitted after hernia repair done yesterday. Pt had a parastomal hernia repair one year ago that resulted in significant KB requiring dialysis. He did eventually recover and come off HD, Cr has recently been stable around 1.6, sees Dr. Bentley. He had another hernia repair done yesterday, Cr was 1.6 on presentation and post-op today is 2.2. Recheck shows it is already down to 2.0 and K improved and pt has good UOP. He notes that the pain meds help with his pain, no other complaints today. ROS: Positive per HPI, rest of 10-point ROS negative - Medical/Surgical History Hx Asthma: No Hx Chronic Respiratory Disease: No Hx Diabetes: No Hx Cardiac Disease: No Hx Renal Disease: No Hx Cirrhosis: No Hx Alcoholism: No Hx HIV/AIDS: No Hx Splenectomy or Spleen Trauma: No Other PMH: hernia repair 2016, hyperlipidemia, GERD, AFIB, SPINAL STENOSIS, CKD stage 3 - Family History Significant Family History: No pertinent family hx - Social History Smoking Status: Former smoker (stopped 40 years ago) - Physical Exam Exam: General: alert and oriented, no acute distress Eyes; EOMI, PERRL OP: Clear, MMM Neck: supple, no thyromegaly CV: RRR, +2/4 radial and dorsalis pedis pulses, no peripheral edema Resp: CTA bilat, nonlabored respiration on 1L NC Abd: Soft, TTP Neuro: CN II-XII Grossly intact, no asterixis : rocha cath in place, draining yellow clear urine Psych: cooperative, appropriate mood and affect Constitutional: Initial Vital Signs Temperature (C) 36.9 C 04/05/17 10:59 Heart Rate 72 04/05/17 10:59 Respiratory Rate 18 04/05/17 10:59 Blood Pressure 168/92 H 04/05/17 10:59 O2 Sat (%) 96 04/05/17 10:59 O2 Delivery Mode Ventilator Allergies/Adverse Reactions: morphine [Morphine] Allergy (Intermediate, Verified 02/12/17 13:14) IV MORPHINE MAKES HIM DIZZY NSAIDS (Non-Steroidal Anti-Inflamma Allergy (Verified 02/12/17 14:04) Other-Enter Comments Home Medications: Medication Instructions Recorded Atorvastatin Calcium [Lipitor 20 20 mg PO DAILY18 04/29/16 mg (*)] Omeprazole [Prilosec 20 mg] 20 mg PO Q2D@1800 11/12/16 Acetaminophen [Tylenol 325mg (*)] 325 mg PO DAILY PRN 02/08/17 Aspirin [Aspirin 81mg (*)] 81 mg PO DAILY 02/08/17 Atenolol [Tenormin 25 mg (*)] 25 mg PO DAILY PRN 02/08/17 Lab and Imaging 04/06/17 04:25 04/06/17 11:08 WBC 12.12 10^3/uL (3.80-9.50) H 04/06/17 04:25 RBC 3.25 10^6/uL (4.40-6.38) L 04/06/17 04:25 Hgb 11.4 g/dL (13.7-17.5) L 04/06/17 04:25 Hct 34.8 % (40.0-51.0) L 04/06/17 04:25 MCV 107.1 fL (81.5-99.8) H 04/06/17 04:25 MCH 35.1 pg (27.9-34.1) H 04/06/17 04:25 MCHC 32.8 g/dL (32.4-36.7) 04/06/17 04:25 RDW 13.9 % (11.5-15.2) 04/06/17 04:25 Plt Count 195 10^3/uL (150-400) D 04/06/17 04:25 MPV 8.7 fL (8.7-11.7) 04/05/17 11:45 Neut % (Auto) 76.9 % (39.3-74.2) H 04/05/17 11:45 Lymph % (Auto) 9.3 % (15.0-45.0) L 04/05/17 11:45 [place] % (Auto) 11.5 % (4.5-13.0) 04/05/17 11:45 Eos % (Auto) 1.3 % (0.6-7.6) 04/05/17 11:45 Baso % (Auto) 0.4 % (0.3-1.7) 04/05/17 11:45 Nucleat RBC Rel Count 0.0 % (0.0-0.2) 04/05/17 11:45 Absolute Neuts (auto) 6.13 10^3/uL (1.70-6.50) 04/05/17 11:45 Absolute Lymphs (auto) 0.74 10^3/uL (1.00-3.00) L 04/05/17 11:45 Absolute Monos (auto) 0.92 10^3/uL (0.30-0.80) H 04/05/17 11:45 Absolute Eos (auto) 0.10 10^3/uL (0.03-0.40) 04/05/17 11:45 Absolute Basos (auto) 0.03 10^3/uL (0.02-0.10) 04/05/17 11:45 Absolute Nucleated RBC 0.00 10^3/uL (0-0.01) 04/05/17 11:45 Immature Gran % 0.6 % (0.0-1.1) 04/05/17 11:45 Immature Gran # 0.05 10^3/uL (0.00-0.10) 04/05/17 11:45 Puncture Site NONE GIVEN 04/05/17 21:40 Patient Temperature 37.0 DEGREES 04/05/17 21:40 pCO2 42 mmHg (34-38) H 04/05/17 21:40 pO2 95 mmHg (65-75) H 04/05/17 21:40 Total CO2 19 mEq/L (23-27) L 04/05/17 21:40 ABG pH 7.24 (7.35-7.45) L 04/05/17 21:40 ABG PO2/FiO2 Ratio 238 RATIO 04/05/17 21:40 ABG HCO3 17 mEq/L (22-26) L 04/05/17 21:40 ABG O2 Saturation 95 % (92-95) 04/05/17 21:40 ABG Base Excess -9.1 mEq/L (-2.5-2.5) L 04/05/17 21:40 O2 Concentration % 40 % (0-100) 04/05/17 21:40 Respiration Rate 15 04/05/17 21:40 Set Respiration Rate 12 04/05/17 21:40 Assist Control YES 04/05/17 21:40 Tidal Volume 550 04/05/17 21:40 End Tidal CO2 42 04/05/17 21:40 PEEP 5 04/05/17 21:40 Sodium 141 mEq/L (134-144) 04/06/17 11:08 Potassium 4.9 mEq/L (3.5-5.2) 04/06/17 11:08 Chloride 115 mEq/L (97-110) H 04/06/17 11:08 Carbon Dioxide 16 mEq/l (22-31) L 04/06/17 11:08 Anion Gap 10 mEq/L (8-16) 04/06/17 11:08 BUN 37 mg/dL (7-23) H 04/06/17 11:08 Creatinine 2.0 mg/dL (0.7-1.3) H 04/06/17 11:08 Estimated GFR 33 04/06/17 11:08 Glucose 107 mg/dL (70-100) H 04/06/17 11:08 Calcium 7.2 mg/dL (8.5-10.4) L 04/06/17 11:08 Magnesium 1.5 mg/dL (1.6-2.3) L 04/06/17 04:25 Patient ABO/Rh O POSITIVE 04/05/17 11:45 Antibody Screen NEGATIVE 04/05/17 11:45
[2017-04-06] MEDS ORDERED: 1/2 NS 1,000 ML IV SCH (15:00)
[2017-04-07] MEDS: HYDROmorphONE/DILAUDID 2 MG/ML INJ IVP PRN ×5 (00:06→23:13)
[2017-04-07] MEDS: METOPROLOL TARTRATE 5 MG/5 ML INJ IVP SCH ×5 (00:07→23:35)
[2017-04-07] MEDS: OXYCODONE/APAP 5/325 TAB PO PRN ×3 (02:51→20:52)
[2017-04-07 05:20] LABS: % IMMATURE GRANULYOCYTES 0.7 % (0.0-1.1); ABSOLUTE IMMATURE GRANULOCYTES 0.07 10^3/uL (0.00-0.10); ADD DIFF? NO; ADD MORPH? NO; ADD SCAN? NO; ATYPICAL LYMPHOCYTE FLAG 0 (0-99); FRAGMENT RBC FLAG 0 (0-99); HEMATOCRIT 33.6 % (40.0-51.0); LEFT SHIFT FLG 10 (0-99); LIPEMIA HEMOLYSIS FLAG 80 (0-99); MEAN CELL HEMOGLOBIN 35.8 pg (27.9-34.1); MEAN CELL HEMOGLOBIN CONCENTR. 32.7 g/dL (32.4-36.7); MEAN CELL VOLUME 109.4 fL (81.5-99.8); MEAN PLATELET VOLUME 8.8 fL (8.7-11.7); PLATELET CLUMPS FLAG 10 (0-99); PLATELET COUNT 186 10^3/uL (150-400); RED BLOOD CELL COUNT 3.07 10^6/uL (4.40-6.38)
[2017-04-07 05:45] LABS: ANION GAP 13 mEq/L (8-16); CALCIUM 8.5 mg/dL (8.5-10.4); CARBON DIOXIDE 16 mEq/l (22-31); CHLORIDE 111 mEq/L (97-110); CREATININE 2.5 mg/dL (0.7-1.3); GLOMERULAR FILTRATION RATE 26; GLUCOSE 129 mg/dL (70-100); MAGNESIUM 1.5 mg/dL (1.6-2.3); POTASSIUM 4.4 mEq/L (3.5-5.2); SODIUM 140 mEq/L (134-144)
[2017-04-07] MEDS: ENOXAPARIN 40 MG/0.4 ML SYR SC SCH (09:24)
[2017-04-07] MEDS: PANTOPRAZOLE SODIUM 40 MG in NS 100 ML IV SCH (09:46)
[2017-04-07] MEDS ORDERED: MAGNESIUM SULF 2 GM/WATER 50 ML IV ONE (09:55)
--- NOTE | 2017-04-07 10:00 | SOAPPROG ---
SOAP Progress Note Assessment/Plan: Assessment: c/o SOB. anxious. no ambulation. no current nausea. avoiding postop narcotics because of fear of stopping breathing. AVSS. comfortable. anxious appearing. shallow breathing. heart regular. lungs diminished bilat. abd soft, incis clean, not signif taught. ANDREW serosang. Cr 2.5. POD#2 s/p complex abd wall reconstruction. suspect SBO secondary to anxiety/need for pain meds - will obtain CXR and EKG - add valium and encourage use of analgesics. increased creat - cont IVF/supportive care - expect significant fluid shifts today and tomorrow - apprec renal input - mag suppl. no overnight issues. comfortable. AVSS. alert, appropriate, intubated. heart regular. lungs clear. abd soft, dist. dressings dry. ANDREW serosang. urine clear. Cr 2.2, K 5.3. Hb 11. POD #1 s/p abd wall reconstruction with mesh. CRI - elev creat, good UOP, will cont IVF, K removed last evening, will consult nephrology for assistance (sees Dr. Maldonado regularly). Tx floor once extubated. Diet as able. Plan: 04/06/17 09:22 04/07/17 09:57 Objective: Vital Signs Temp Pulse Resp BP Pulse Ox 37.1 C 85 18 153/102 H 95 04/07/17 08:00 04/07/17 08:00 04/07/17 08:00 04/07/17 08:00 04/07/17 08:00 Laboratory Results 04/07/17 04:28 04/07/17 04:28 04/06/17 04/07/17 04/08/17 05:59 05:59 05:59 Intake Total 5627 9802 Output Total 903 1620 Balance 1541 2233 ICD10 Worksheet Patient Problems: Problems Problem Status Onset Primary localized osteoarthritis of right knee Acute History of primary bladder cancer Chronic Parastomal hernia of ileal conduit Chronic
--- NOTE | 2017-04-07 10:24 | CPEKG ---
Heart Rate: 79 RR Interval: 759 P-R Interval: 152 QRSD Interval: 94 QT Interval: 384 QTC Interval: 441 P [place]: 39 QRS [place]: 12 T Wave [place]: 17 EKG Severity - NORMAL ECG - EKG Impression: SINUS RHYTHM Electronically Signed By: Dawson Hay 08-Apr-2017 08:11:00
[2017-04-07] MEDS: DIAZEPAM 5 MG TAB PO PRN ×3 (10:25→23:15)
[2017-04-07] MEDS: ONDANSETRON 4 MG/2 ML VIAL IVP PRN (12:46)
--- NOTE | 2017-04-07 18:13 | SOAPPROG ---
SOAP Progress Note Assessment/Plan: Assessment/Plan: KB on CKD stage 3: pt with baseline Cr around 1.6, now POD#2 from hernia repair , Cr up to 2.5 today, nonoliguric. - Will continue IVFs, change to D5W with three amps of bicarb. - Will continue to monitor. - No need for HD at this time. - Avoid hypotension, MOM, morphine, demerol, NSAIDs, contrast, aminoglycosides , fleets, and other nephrotoxins. Metabolic acidosis: likely due to KB, will add bicarb to fluids and continue to monitor. Subjective: No acute events overnight. Pt concerned that Cr has gone up, does not want to end up on dialysis like he required with his last hernia repair. He continues to have good UOP. Objective: Vital Signs Temp Pulse Resp BP Pulse Ox 37.1 C 86 20 135/87 H 94 04/07/17 15:14 04/07/17 15:14 04/07/17 15:14 04/07/17 15:14 04/07/17 15:14 Laboratory Results 04/07/17 04:28 04/07/17 04:28 04/06/17 04/07/17 04/08/17 05:59 05:59 05:59 Intake Total 2031 3858 Output Total 490 1620 Balance 1541 2238 General: alert and oriented, no acute distress Eyes; EOMI, PERRL OP: clear CV: RRR Resp; CTA bilat, nonlabored respirations on RA Abd; SOft, distended Ext: no edema BLE Neuro; CN II-XII grossly intact, no asterixis Psych; cooperative, appropriate mood and affect ICD10 Worksheet Patient Problems: Problems Problem Status Onset Primary localized osteoarthritis of right knee Acute History of primary bladder cancer Chronic Parastomal hernia of ileal conduit Chronic
[2017-04-07] MEDS: SODIUM BICARBONATE 150 MEQ in D5W 1,000 ML IV SCH (19:31)
[2017-04-08] MEDS: HYDROmorphONE/DILAUDID 2 MG/ML INJ IVP PRN ×5 (02:59→21:03)
[2017-04-08] MEDS: OXYCODONE/APAP 5/325 TAB PO PRN ×3 (03:03→23:06)
[2017-04-08] MEDS: DIAZEPAM 5 MG TAB PO PRN ×2 (05:06→18:10)
[2017-04-08] MEDS: METOPROLOL TARTRATE 5 MG/5 ML INJ IVP SCH (05:06)
[2017-04-08 06:07] LABS: ANION GAP 11 mEq/L (8-16); CALCIUM 8.7 mg/dL (8.5-10.4); CARBON DIOXIDE 18 mEq/l (22-31); CHLORIDE 109 mEq/L (97-110); CREATININE 2.6 mg/dL (0.7-1.3); GLOMERULAR FILTRATION RATE 24; GLUCOSE 165 mg/dL (70-100); MAGNESIUM 2.1 mg/dL (1.6-2.3); POTASSIUM 4.4 mEq/L (3.5-5.2); SODIUM 138 mEq/L (134-144)
[2017-04-08] MEDS: SODIUM BICARBONATE 150 MEQ in D5W 1,000 ML IV SCH ×2 (06:43→19:20)
--- NOTE | 2017-04-08 07:59 | SOAPPROG ---
SOAP Progress Note Assessment/Plan: Assessment: Breathing better. EKG and CXR normal. pain controlled. ambulating. AVSS. UOP 1500 - 1000. up in chair. comfortable. abd soft, min dist. marry serosan. cr 2.6, bun 44. pod#3 s/p complex ventral hernia repair. increased creat. apprec renal input. anticipate fluid mobilization today. cont supportive care. diet as able. ambulate. c/o SOB. anxious. no ambulation. no current nausea. avoiding postop narcotics because of fear of stopping breathing. AVSS. comfortable. anxious appearing. shallow breathing. heart regular. lungs diminished bilat. abd soft, incis clean, not signif taught. MARRY serosang. Cr 2.5. POD#2 s/p complex abd wall reconstruction. suspect SBO secondary to anxiety/need for pain meds - will obtain CXR and EKG - add valium and encourage use of analgesics. increased creat - cont IVF/supportive care - expect significant fluid shifts today and tomorrow - apprec renal input - mag suppl. no overnight issues. comfortable. AVSS. alert, appropriate, intubated. heart regular. lungs clear. abd soft, dist. dressings dry. MARRY serosang. urine clear. Cr 2.2, K 5.3. Hb 11. POD #1 s/p abd wall reconstruction with mesh. CRI - elev creat, good UOP, will cont IVF, K removed last evening, will consult nephrology for assistance (sees Dr. Maldonado regularly). Tx floor once extubated. Diet as able. Plan: 04/06/17 09:22 04/07/17 09:57 04/08/17 07:57 Objective: Vital Signs Temp Pulse Resp BP Pulse Ox 37.1 C 96 16 145/91 H 92 04/08/17 03:14 04/08/17 03:14 04/08/17 03:14 04/08/17 03:14 04/08/17 03:14 Laboratory Results 04/07/17 04:28 04/08/17 05:30 04/07/17 04/08/17 04/09/17 05:59 05:59 05:59 Intake Total 3852 1050 Output Total 1620 1180 Balance 2238 -130 ICD10 Worksheet Patient Problems: Problems Problem Status Onset Primary localized osteoarthritis of right knee Acute History of primary bladder cancer Chronic Parastomal hernia of ileal conduit Chronic
[2017-04-08] MEDS ORDERED: PANTOPRAZOLE SODIUM 40 MG TAB PO ONE (08:01)
[2017-04-08] MEDS: ATENOLOL 25 MG TAB PO SCH (09:25)
[2017-04-08] MEDS: ENOXAPARIN 40 MG/0.4 ML SYR SC SCH (09:25)
[2017-04-08] MEDS: ONDANSETRON 4 MG/2 ML VIAL IVP PRN (13:49)
--- NOTE | 2017-04-08 19:18 | SOAPPROG ---
SOAP Progress Note Assessment/Plan: Assessment: 1. arf: presumably ischemic atn, remains non-oliguric and creat appears to be plateauing. Cont ivf but will decrease rate a bit. 2. Met acidosis: improved with iv bicarb, will decrease rate as above. 3. s/p hernia repair: not eating much (per pt) but tolerating po. Plan: 04/08/17 19:16 Subjective: Doing ok. Not eating well. Objective: Vital Signs Temp Pulse Resp BP Pulse Ox 37.1 C 91 18 124/96 H 94 04/08/17 14:58 04/08/17 14:58 04/08/17 14:58 04/08/17 14:58 04/08/17 14:58 Laboratory Results 04/07/17 04:28 04/08/17 05:30 04/07/17 04/08/17 04/09/17 05:59 05:59 05:59 Intake Total 3858 1050 300 Output Total 1620 1180 535 Balance 2238 -130 -235 Physical Exam - Physical Exam General Appearance: no apparent distress Respiratory: decreased breath sounds Cardiac/Chest: regular rate, rhythm Abdomen: soft Extremities: pedal edema (none) ICD10 Worksheet Patient Problems: Problems Problem Status Onset Primary localized osteoarthritis of right knee Acute History of primary bladder cancer Chronic Parastomal hernia of ileal conduit Chronic
[2017-04-09] MEDS: HYDROmorphONE/DILAUDID 2 MG/ML INJ IVP PRN ×5 (00:59→22:15)
[2017-04-09] MEDS: DIAZEPAM 5 MG TAB PO PRN ×4 (00:59→22:22)
[2017-04-09] MEDS: OXYCODONE/APAP 5/325 TAB PO PRN ×3 (03:05→17:03)
[2017-04-09 05:45] LABS: ANION GAP 12 mEq/L (8-16); CALCIUM 8.7 mg/dL (8.5-10.4); CARBON DIOXIDE 24 mEq/l (22-31); CHLORIDE 106 mEq/L (97-110); CREATININE 2.3 mg/dL (0.7-1.3); GLOMERULAR FILTRATION RATE 28; GLUCOSE 136 mg/dL (70-100); MAGNESIUM 2.1 mg/dL (1.6-2.3); SODIUM 142 mEq/L (134-144)
[2017-04-09] MEDS: ATENOLOL 25 MG TAB PO SCH (09:23)
[2017-04-09] MEDS: SODIUM BICARBONATE 150 MEQ in D5W 1,000 ML IV SCH (09:30)
--- NOTE | 2017-04-09 12:34 | SOAPPROG ---
SOAP Progress Note Assessment/Plan: Assessment: intermittent tachy overnight per nursing staff (pulse max 150) - he denies any palpitations (usually knows when back in afib). patient without new complaints. +flatus. small po. pain controlled. Afebrile. BP 110. P90-150. comfortable. heart reg. lungs clear. abd soft, min dist. MARRY thin serosang. Cr. 2.3. pod#4 s/p complex ventral hernia repair. clinically doing very well. ileus improving. NAYELI improving. prob more parox afib - will check EKG and increase atenolol. if persists, will discuss with cards role for anticoagulation. Breathing better. EKG and CXR normal. pain controlled. ambulating. AVSS. UOP 1500 - 1000. up in chair. comfortable. abd soft, min dist. marry serosan. cr 2.6, bun 44. pod#3 s/p complex ventral hernia repair. increased creat. apprec renal input. anticipate fluid mobilization today. cont supportive care. diet as able. ambulate. c/o SOB. anxious. no ambulation. no current nausea. avoiding postop narcotics because of fear of stopping breathing. AVSS. comfortable. anxious appearing. shallow breathing. heart regular. lungs diminished bilat. abd soft, incis clean, not signif taught. MARRY serosang. Cr 2.5. POD#2 s/p complex abd wall reconstruction. suspect SBO secondary to anxiety/need for pain meds - will obtain CXR and EKG - add valium and encourage use of analgesics. increased creat - cont IVF/supportive care - expect significant fluid shifts today and tomorrow - apprec renal input - mag suppl. no overnight issues. comfortable. AVSS. alert, appropriate, intubated. heart regular. lungs clear. abd soft, dist. dressings dry. MARRY serosang. urine clear. Cr 2.2, K 5.3. Hb 11. POD #1 s/p abd wall reconstruction with mesh. CRI - elev creat, good UOP, will cont IVF, K removed last evening, will consult nephrology for assistance (sees Dr. Maldonado regularly). Tx floor once extubated. Diet as able. Plan: 04/06/17 09:22 04/07/17 09:57 04/08/17 07:57 04/09/17 12:30 Objective: Vital Signs Temp Pulse Resp BP Pulse Ox 36.9 C 112 H 18 106/79 94 04/09/17 11:24 04/09/17 11:24 04/09/17 11:24 04/09/17 11:24 04/09/17 11:24 Laboratory Results 04/07/17 04:28 04/09/17 04:21 04/08/17 04/09/17 04/10/17 05:59 05:59 05:59 Intake Total 1050 300 Output Total 1180 1005 Balance -130 -705 ICD10 Worksheet Patient Problems: Problems Problem Status Onset Primary localized osteoarthritis of right knee Acute History of primary bladder cancer Chronic Parastomal hernia of ileal conduit Chronic
[2017-04-09] MEDS ORDERED: ATENOLOL 25 MG TAB PO ONE (12:45)
[2017-04-09] MEDS: ENOXAPARIN 40 MG/0.4 ML SYR SC SCH (13:07)
--- NOTE | 2017-04-09 13:16 | CPEKG ---
Heart Rate: 87 RR Interval: 690 P-R Interval: 144 QRSD Interval: 96 QT Interval: 352 QTC Interval: 424 P [place]: 33 QRS [place]: 4 T Wave [place]: 5 EKG Severity - BORDERLINE ECG - EKG Impression: SINUS RHYTHM Electronically Signed By: Gonzalez Christianson 09-Apr-2017 15:07:27
--- NOTE | 2017-04-09 18:35 | SOAPPROG ---
SOAP Progress Note Assessment/Plan: Assessment: 1. arf: presumably ischemic atn, remains non-oliguric and creat now decreasing. Does not appear dry, will d/c ivf. 2. Met acidosis: resolved, will d/c ivf as above. 3. s/p hernia repair: appears to be doing well post-op. Plan: 04/08/17 19:16 04/09/17 18:33 Subjective: No particular c/o. Very concerned that he is getting enough fluids. Objective: Vital Signs Temp Pulse Resp BP Pulse Ox 36.7 C 76 18 133/78 H 94 04/09/17 15:18 04/09/17 15:18 04/09/17 15:18 04/09/17 15:18 04/09/17 15:18 Laboratory Results 04/07/17 04:28 04/09/17 04:21 04/08/17 04/09/17 04/10/17 05:59 05:59 05:59 Intake Total 1050 300 800 Output Total 1180 1005 490 Balance -130 -705 310 Physical Exam - Physical Exam General Appearance: no apparent distress Respiratory: decreased breath sounds (at bases) Cardiac/Chest: regular rate, rhythm Extremities: pedal edema (none) ICD10 Worksheet Patient Problems: Problems Problem Status Onset Primary localized osteoarthritis of right knee Acute History of primary bladder cancer Chronic Parastomal hernia of ileal conduit Chronic
[2017-04-09] MEDS ORDERED: OXYMETAZOLINE 30 ML NASAL SPRAY EACHNARE SCH (22:30)
[2017-04-09] MEDS: OXYMETAZOLINE 30 ML NASAL SPRAY EACHNARE PRN (22:35)
[2017-04-10] MEDS: OXYCODONE/APAP 5/325 TAB PO PRN ×2 (04:29→11:04)
[2017-04-10 05:22] LABS: ANION GAP 9 mEq/L (8-16); CALCIUM 8.4 mg/dL (8.5-10.4); CARBON DIOXIDE 28 mEq/l (22-31); CHLORIDE 104 mEq/L (97-110); CREATININE 2.3 mg/dL (0.7-1.3); GLOMERULAR FILTRATION RATE 28; GLUCOSE 98 mg/dL (70-100); POTASSIUM 4.1 mEq/L (3.5-5.2); SODIUM 141 mEq/L (134-144)
[2017-04-10] MEDS: ATENOLOL 50 MG TAB PO SCH (07:54)
[2017-04-10] MEDS: ENOXAPARIN 40 MG/0.4 ML SYR SC SCH (07:54)
[2017-04-10] MEDS: DIAZEPAM 5 MG TAB PO PRN ×2 (08:13→14:18)
[2017-04-10] MEDS: HYDROmorphONE/DILAUDID 2 MG/ML INJ IVP PRN (08:14)
--- NOTE | 2017-04-10 09:53 | SOAPPROG ---
SOAP Progress Note Assessment/Plan: Assessment: 1. KB on CKD Non oliguric, likely ischemic ATN. BL 1.6, peaked 2.6. 2.3 yesterday and today. Reviewed data with patient. Will US if he does not improve further. Consider rocha drainage of ostomy. He did not have hydro last year. 2. Hypoxemia/Dyspnea Volume increased today. Exam suggests R pleural effusion. Will check CXR, give one dose of diuretic. 3. s/p Ventral herniorrhaphy. Doing well in the regard. Flatus, good appetite, had breakfast this am. 4. HTN Stable Plan: 04/10/17 09:49 04/10/17 09:53 Subjective: Doing ok, breathing a bit labored Objective: Vital Signs Temp Pulse Resp BP Pulse Ox 37.1 C 73 18 112/74 96 04/10/17 07:13 04/10/17 07:13 04/10/17 07:13 04/10/17 07:13 04/10/17 07:13 Laboratory Results 04/07/17 04:28 04/10/17 04:20 04/09/17 04/10/17 04/11/17 05:59 05:59 05:59 Intake Total 300 800 Output Total 1005 1080 Balance -705 280 Physical Exam - Physical Exam General Appearance: no apparent distress Respiratory: other (A few crackles L base, decreased BS lower 1/3 R lung) Cardiac/Chest: regular rate, rhythm Abdomen: other (drains noted) Extremities: pedal edema (1+ B) Neuro/Psych: oriented x 3 ICD10 Worksheet Patient Problems: Problems Problem Status Onset Primary localized osteoarthritis of right knee Acute History of primary bladder cancer Chronic Parastomal hernia of ileal conduit Chronic
[2017-04-10] MEDS ORDERED: FUROSEMIDE 40 MG/4 ML VIAL IVP ONE ×2 (09:56→11:00)
--- NOTE | 2017-04-10 12:11 | SOAPPROG ---
SOAP Progress Note Assessment/Plan: Assessment/Plan: POD#5 s/p ventral hernia repair with Alloderm mesh Hypoxic on 4 L NC Ambulatory with assist Tolerating diet KB on CKD Cr stable at 2.3 Afib versus sinus tach yesterday ECG sinus rate controlled on atenolol AA&O RRR CTA Minimal ANDREW serous output Urostomy working Incision dry intact Min edema Doing well Pulmonary toilet Bowel regimen PT/OT Leave cayden 10-14 days ANDREW out tomorrow D/C planning ?snf/acute rehab 04/10/17 12:08 04/10/17 12:13 Objective: Vital Signs Temp Pulse Resp BP Pulse Ox 37.0 C 61 18 122/72 H 97 04/10/17 11:31 04/10/17 11:31 04/10/17 11:31 04/10/17 11:31 04/10/17 11:31 Laboratory Results 04/07/17 04:28 04/10/17 04:20 04/09/17 04/10/17 04/11/17 05:59 05:59 05:59 Intake Total 300 800 Output Total 1005 1080 Balance -705 -280 ICD10 Worksheet Patient Problems: Problems Problem Status Onset Primary localized osteoarthritis of right knee Acute History of primary bladder cancer Chronic Parastomal hernia of ileal conduit Chronic
[2017-04-10] MEDS ORDERED: POLYETHYLENE GLYCOL 3350 17 GM PKT PO PRN (12:14)
[2017-04-10] MEDS ORDERED: MAGNESIUM HYDROXIDE 30 ML UDCUP PO PRN (12:14)
[2017-04-10] MEDS ORDERED: LACTULOSE 20 GM/30 ML UDCUP PO PRN (12:14)
[2017-04-10] MEDS ORDERED: BISACODYL 10 MG SUPP PR PRN (12:14)
[2017-04-10] MEDS: HYDROmorphONE/DILAUDID 1 MG/ML SYR IVP PRN ×2 (14:12→19:29)
[2017-04-10] MEDS: SENNOSIDES/DOCUSATE SODIUM TAB PO SCH (21:02)
[2017-04-11] MEDS: HYDROmorphONE/DILAUDID 1 MG/ML SYR IVP PRN (02:55)
[2017-04-11 05:46] LABS: % IMMATURE GRANULYOCYTES 1.2 % (0.0-1.1); ADD DIFF? NO; ADD MORPH? NO; ADD SCAN? NO; ATYPICAL LYMPHOCYTE FLAG 20 (0-99); FRAGMENT RBC FLAG 0 (0-99); HEMOGLOBIN 10.2 g/dL (13.7-17.5); LEFT SHIFT FLG 90 (0-99); LIPEMIA HEMOLYSIS FLAG 80 (0-99); MEAN CELL HEMOGLOBIN 35.2 pg (27.9-34.1); MEAN CELL HEMOGLOBIN CONCENTR. 31.9 g/dL (32.4-36.7); MEAN CELL VOLUME 110.3 fL (81.5-99.8); MEAN PLATELET VOLUME 8.8 fL (8.7-11.7); PLATELET CLUMPS FLAG 0 (0-99); PLATELET COUNT 227 10^3/uL (150-400); RED CELL DISTRIBUTION WIDTH 13.7 % (11.5-15.2)
[2017-04-11 06:12] LABS: ALBUMIN 3.1 g/dL (3.5-5.0); ANION GAP 12 mEq/L (8-16); CALCIUM 8.8 mg/dL (8.5-10.4); CARBON DIOXIDE 26 mEq/l (22-31); CHLORIDE 102 mEq/L (97-110); CREATININE 2.4 mg/dL (0.7-1.3); GLOMERULAR FILTRATION RATE 27; GLUCOSE 104 mg/dL (70-100); POTASSIUM 4.1 mEq/L (3.5-5.2); SODIUM 140 mEq/L (134-144)
--- NOTE | 2017-04-11 07:42 | SOAPPROG ---
SOAP Progress Note Assessment/Plan: Assessment: no new complaints. po better. activity better. still intermittent tachy per nursing staff. avss. comfortable. abd less dist. incis clean. marry serosang. improved. cr 2.4 - stable. plan for dc tomorrow. will review with cards any further reccs. remove left drain. intermittent tachy overnight per nursing staff (pulse max 150) - he denies any palpitations (usually knows when back in afib). patient without new complaints. +flatus. small po. pain controlled. Afebrile. BP 110. P90-150. comfortable. heart reg. lungs clear. abd soft, min dist. MARRY thin serosang. Cr. 2.3. pod#4 s/p complex ventral hernia repair. clinically doing very well. ileus improving. NAYELI improving. prob more parox afib - will check EKG and increase atenolol. if persists, will discuss with cards role for anticoagulation. Breathing better. EKG and CXR normal. pain controlled. ambulating. AVSS. UOP 1500 - 1000. up in chair. comfortable. abd soft, min dist. marry serosan. cr 2.6, bun 44. pod#3 s/p complex ventral hernia repair. increased creat. apprec renal input. anticipate fluid mobilization today. cont supportive care. diet as able. ambulate. c/o SOB. anxious. no ambulation. no current nausea. avoiding postop narcotics because of fear of stopping breathing. AVSS. comfortable. anxious appearing. shallow breathing. heart regular. lungs diminished bilat. abd soft, incis clean, not signif taught. MARRY serosang. Cr 2.5. POD#2 s/p complex abd wall reconstruction. suspect SBO secondary to anxiety/need for pain meds - will obtain CXR and EKG - add valium and encourage use of analgesics. increased creat - cont IVF/supportive care - expect significant fluid shifts today and tomorrow - apprec renal input - mag suppl. no overnight issues. comfortable. AVSS. alert, appropriate, intubated. heart regular. lungs clear. abd soft, dist. dressings dry. MARRY serosang. urine clear. Cr 2.2, K 5.3. Hb 11. POD #1 s/p abd wall reconstruction with mesh. CRI - elev creat, good UOP, will cont IVF, K removed last evening, will consult nephrology for assistance (sees Dr. Maldonado regularly). Tx floor once extubated. Diet as able. Plan: 04/06/17 09:22 04/07/17 09:57 04/08/17 07:57 04/09/17 12:30 04/11/17 07:41 Objective: Vital Signs Temp Pulse Resp BP Pulse Ox 37.5 C 104 H 17 103/63 95 04/11/17 04:00 04/11/17 04:00 04/11/17 04:00 04/11/17 04:00 04/11/17 04:00 Laboratory Results 04/11/17 05:33 04/11/17 05:33 04/10/17 04/11/17 04/12/17 05:59 05:59 05:59 Intake Total 800 Output Total 1080 1080 Balance -280 -1080 ICD10 Worksheet Patient Problems: Problems Problem Status Onset Primary localized osteoarthritis of right knee Acute History of primary bladder cancer Chronic Parastomal hernia of ileal conduit Chronic
[2017-04-11] MEDS: SENNOSIDES/DOCUSATE SODIUM TAB PO SCH ×2 (07:57→21:25)
[2017-04-11] MEDS: OXYCODONE/APAP 5/325 TAB PO PRN ×3 (07:57→17:47)
[2017-04-11] MEDS: ATENOLOL 50 MG TAB PO SCH (07:57)
[2017-04-11] MEDS: ENOXAPARIN 40 MG/0.4 ML SYR SC SCH (08:04)
[2017-04-11] MEDS ORDERED: PNEUMOC 13-VAL CONJ-DIP CRM/PF 0.5 ML SYR IM ONE (08:51)
--- NOTE | 2017-04-11 09:36 | SOAPPROG ---
SOAP Progress Note Assessment/Plan: Assessment:Plan: CKD-baseline 1.6 ARF on CRF-creatinine plateaued at 2.4 -non-oliguric -lytes okay -some edema -likely ATN -will check ultrasound of kidneys -no acute indications for dialysis -daily labs -avoid NSAIDs and IV contrast -medications reviewed 04/11/17 09:34 Subjective: fatigued Objective: Vital Signs Temp Pulse Resp BP Pulse Ox 37.6 C 96 16 121/65 H 91 L 04/11/17 08:00 04/11/17 08:00 04/11/17 08:00 04/11/17 08:00 04/11/17 08:00 Laboratory Results 04/11/17 05:33 04/11/17 05:33 04/10/17 04/11/17 04/12/17 05:59 05:59 05:59 Intake Total 800 250 Output Total 1080 1080 5 Balance -280 -3637 245 Physical Exam - Physical Exam General Appearance: WD/WN, alert, no apparent distress EENT: normal ENT inspection Neck: normal inspection Respiratory: decreased breath sounds (at bases) Cardiac/Chest: regular rate, rhythm, systolic murmur Abdomen: normal bowel sounds, other (ostomy RLQ) Extremities: swelling (tr-1+ above ankles to knees) ICD10 Worksheet Patient Problems: Problems Problem Status Onset Primary localized osteoarthritis of right knee Acute History of primary bladder cancer Chronic Parastomal hernia of ileal conduit Chronic
[2017-04-11] MEDS ORDERED: ATENOLOL 50 MG TAB PO ONE (17:00)
[2017-04-11] MEDS: OXYMETAZOLINE 30 ML NASAL SPRAY EACHNARE PRN (17:06)
[2017-04-11] MEDS: DIAZEPAM 5 MG TAB PO PRN (18:45)
--- NOTE | 2017-04-11 20:13 | SOAPPROG ---
SOAP Progress Note Assessment/Plan: Assessment/Plan: POD#6 s/p ventral hernia repair with Alloderm mesh Recurrent Afib not responsive to additional atenolol No hemodynamic instability Hypoxic on 4 L NC Ambulatory with assist Tolerating diet KB on CKD Cr stable at 2.[address] Rodriguez Cardiology coverage for Dr Amaral. will tx to PCU for diltiazem gtt 04/11/17 20:10 Objective: Vital Signs Temp Pulse Resp BP Pulse Ox 37.0 C 163 H 18 126/107 H 94 04/11/17 17:48 04/11/17 17:48 04/11/17 17:48 04/11/17 17:48 04/11/17 17:48 Laboratory Results 04/11/17 05:33 04/11/17 05:33 04/10/17 04/11/17 04/12/17 05:59 05:59 05:59 Intake Total 800 1000 Output Total 9445 1080 955 Balance -280 -1080 45 ICD10 Worksheet Patient Problems: Problems Problem Status Onset Primary localized osteoarthritis of right knee Acute History of primary bladder cancer Chronic Parastomal hernia of ileal conduit Chronic
[2017-04-11] MEDS: DILTIAZEM 125 MG in D5W 125 ML IV SCH (21:22)
[2017-04-12] MEDS: OXYCODONE/APAP 5/325 TAB PO PRN ×3 (04:59→22:08)
[2017-04-12 05:08] LABS: ALBUMIN 3.1 g/dL (3.5-5.0); ANION GAP 12 mEq/L (8-16); CALCIUM 9.2 mg/dL (8.5-10.4); CARBON DIOXIDE 22 mEq/l (22-31); CHLORIDE 104 mEq/L (97-110); CREATININE 2.4 mg/dL (0.7-1.3); GLOMERULAR FILTRATION RATE 27; GLUCOSE 113 mg/dL (70-100); POTASSIUM 4.8 mEq/L (3.5-5.2); SODIUM 138 mEq/L (134-144)
--- NOTE | 2017-04-12 09:41 | PDCARPN ---
Cardiology Progress Note Chief Complaint: Patient doing well today without complaints, but dyspnic Assessment/Plan: Assessment: Patient is a 72 y/o male with history of atrial fibrillation (not on anticoagulation with [id number] score of 2 for age and HTN), HTN, HLP, bladder cancer and numerous orthopaedic surgeries, who is currently POD#7 for complex ventral hernia surgery with ongoing atrial fibrillation with rapid ventricular response. Heart rates, when reviewing Vitals, had been up to 160 bpm, when IV CCB therapy was started. Rates dropped, and overnight there was a period of normal sinus rhythm being reestablished. This morning, atrial fibrillation with rapid ventricular response was once again noted, and the patient was sent to the PCU with ongoing CCB drip. Patient denies symptoms (no chest pains or pressure, no PND or orthopnea (but the patient slept in the chair last night), and no fevers, chills). Mild dyspnea has been noted, but the patient down played the symptom. Anticoagulation is Lovenox (DVT prophylaxis dose, no CVA prophylaxis with less than 1 mg/kg twice per day) Plan: (1) Would continue therapy on beta blockers (for both HTN and some degree of heart rate control) (2) Maintain therapy on CCB via IV (there was some reduction in heart rates noted) (3) Add Digoxin (250 mcg) for attempts at rate reduction (and rhythm conversion ) (4) Nephrology is following the patient given CRF history (5) Patient would likely benefit from coumadin given CVA risk and the ongoing atrial fibrillation that has been noted Subjective: No cardiovascular complaints voiced, but the patient does have more pronounced dyspnea than his baseline Reviewed/Discussed With: multidisciplinary team Objective: Vital Signs (8 Hrs) Temp Pulse Resp BP Pulse Ox 04/12/17 08:00 36.9 C 141 H 16 124/77 H 92 04/12/17 03:55 36.6 C 133 H 23 H 135/82 H 94 Intake/Output (24 Hrs) 04/11/17 04/12/17 04/13/17 05:59 05:59 05:59 Intake Total 1075 Output Total 0337 1509 Balance -2209 -312 Intake: Oral (ml) 1000 IV Infused (ml) 75 Diltiazem 125 mg In D5w 75 125 ml @ Per Protocol IV CONT NIRAV Rx#:[id number] Output: Urine (ml) 950 1650 Urostomy 950 1650 ANDREW Drain Output (ml) 130 165 #1 Left Abdomen Guillermo 20 5 Le #2 Left Abdomen Guillermo 110 160 Le Result Diagrams: 04/11/17 05:33 04/12/17 03:53 Cardiac Labs: Cardiac Lab Results (72 Hrs) 04/09/17 17:54 Troponin I 0.022 Telemetry: atrial fibrillation with rapid ventricular response Echocardiogram: echocardiogram from 07-25-16 with normal LVEF and diastolic dysfunction. mild to mod AI. mild TR - Physical Exam Constitutional: WDWN, obese Eyes: PERRL, EOMI Ears, Nose, Mouth, Throat: moist mucous membranes Cardiovascular: no rubs, no gallops, irregularly irregular Peripheral Pulses: 2+: dorsalis-pedis (R), dorsalis-pedis (L) Respiratory: no crackles, reduced air movement, expiratory wheeze Gastrointestinal: normoactive bowel sounds Skin: warm, no edema Musculoskeletal: no muscular tenderness Neurologic: AAOx3, CN II-XII grossly intact Psychiatric: cooperative, interactive, following commands ICD10 Worksheet Patient Problems: Problems Problem Status Onset Primary localized osteoarthritis of right knee Acute History of primary bladder cancer Chronic Parastomal hernia of ileal conduit Chronic
[2017-04-12] MEDS ORDERED: DIGOXIN 500 MCG/2 ML AMP IVP ONE ×2 (09:45→10:15)
[2017-04-12] MEDS ORDERED: FUROSEMIDE 40 MG/4 ML VIAL IVP ONE (09:56)
--- NOTE | 2017-04-12 09:56 | SOAPPROG ---
SOAP Progress Note Assessment/Plan: Assessment: 1. KB on CKD Non oliguric, likely ischemic ATN. BL 1.6, peaked 2.6. Now stalled at 2.4. Non oliguric. Likely has a hemodynamic component at present. 2. Hypoxemia/Dyspnea Volume increased. CXR has shown atelectasis, but today with Afib exam suggests some failure. Cards to slow/convert. Lasix times one. 3. s/p Ventral herniorrhaphy. Doing well in the regard. Flatus, stools, and good appetite 4. HTN Stable Subjective: Doing fair Objective: Vital Signs Temp Pulse Resp BP Pulse Ox 36.9 C 141 H 16 124/77 H 92 04/12/17 08:00 04/12/17 08:00 04/12/17 08:00 04/12/17 08:00 04/12/17 08:00 Laboratory Results 04/11/17 05:33 04/12/17 03:53 04/11/17 04/12/17 04/13/17 05:59 05:59 05:59 Intake Total 1075 Output Total 1996 1815 Balance -1080 -740 Physical Exam - Physical Exam General Appearance: no apparent distress Respiratory: decreased breath sounds, rales Cardiac/Chest: tachycardia, irregularly irregular Extremities: pedal edema Neuro/Psych: oriented x 3 ICD10 Worksheet Patient Problems: Problems Problem Status Onset Primary localized osteoarthritis of right knee Acute History of primary bladder cancer Chronic Parastomal hernia of ileal conduit Chronic
[2017-04-12] MEDS: ENOXAPARIN 40 MG/0.4 ML SYR SC SCH (10:28)
[2017-04-12] MEDS: ATENOLOL 50 MG TAB PO SCH (10:29)
[2017-04-12] MEDS: SENNOSIDES/DOCUSATE SODIUM TAB PO SCH ×2 (10:30→19:49)
[2017-04-12] MEDS: DIAZEPAM 5 MG TAB PO PRN ×2 (10:48→22:09)
--- NOTE | 2017-04-12 13:46 | SOAPPROG ---
SOAP Progress Note Assessment/Plan: Assessment/Plan: POD#6 s/p ventral hernia repair with Alloderm mesh Recurrent Afib not responsive to additional atenolol No hemodynamic instability Hypoxic on 4 L NC Ambulatory with assist Tolerating diet irreg/irreg CTA Abd soft NT incision c/d ANDREW serosang 1-2+ non pitting edema KB on CKD Cr stable at 2.4 Most pressing issue is Afib from fluid shifts/recent intervention CCB and dig in addition to BB Diurese 04/12/17 13:44 Objective: Vital Signs Temp Pulse Resp BP Pulse Ox 36.7 C 104 H 18 141/71 H 95 04/12/17 12:00 04/12/17 12:00 04/12/17 12:00 04/12/17 12:00 04/12/17 12:00 Laboratory Results 04/11/17 05:33 04/12/17 03:53 04/11/17 04/12/17 04/13/17 05:59 05:59 05:59 Intake Total 1075 Output Total 1080 1815 Balance -1080 -740 ICD10 Worksheet Patient Problems: Problems Problem Status Onset Primary localized osteoarthritis of right knee Acute History of primary bladder cancer Chronic Parastomal hernia of ileal conduit Chronic
[2017-04-12] MEDS: DILTIAZEM 125 MG in D5W 125 ML IV SCH (18:28)
[2017-04-13] MEDS: DILTIAZEM 125 MG in D5W 125 ML IV SCH (02:42)
[2017-04-13 05:26] LABS: ALBUMIN 2.7 g/dL (3.5-5.0); ANION GAP 14 mEq/L (8-16); CALCIUM 8.5 mg/dL (8.5-10.4); CARBON DIOXIDE 25 mEq/l (22-31); CHLORIDE 98 mEq/L (97-110); CREATININE 2.4 mg/dL (0.7-1.3); GLOMERULAR FILTRATION RATE 27; GLUCOSE 159 mg/dL (70-100); POTASSIUM 3.9 mEq/L (3.5-5.2); SODIUM 137 mEq/L (134-144)
[2017-04-13] MEDS: ENOXAPARIN 40 MG/0.4 ML SYR SC SCH (08:18)
[2017-04-13] MEDS: ATENOLOL 50 MG TAB PO SCH (08:19)
[2017-04-13] MEDS: SENNOSIDES/DOCUSATE SODIUM TAB PO SCH ×2 (08:19→21:15)
--- NOTE | 2017-04-13 08:43 | SOAPPROG ---
SOAP Progress Note Assessment/Plan: Assessment/Plan: POD#7 s/p ventral hernia repair with Alloderm mesh Recurrent Afib not responsive current medication regimen No hemodynamic instability Hypoxic on 4 L NC Ambulatory with assist Tolerating diet irreg/irreg CTA Abd soft NT incision c/d ANDREW serosang/some purulence today 1-2+ non pitting edema KB on CKD Cr stable at 2.4 Most pressing issue is Afib from fluid shifts/recent intervention CCB and dig in addition to BB. IV infiltration today may require change to oral medication only and replacement of IV Diurese 04/12/17 13:44 04/13/17 08:42 Objective: Vital Signs Temp Pulse Resp BP Pulse Ox 36.7 C 138 H 20 129/83 H 95 04/13/17 08:00 04/13/17 08:00 04/13/17 08:00 04/13/17 08:00 04/13/17 08:00 Laboratory Results 04/11/17 05:33 04/13/17 03:49 04/12/17 04/13/17 04/14/17 05:59 05:59 05:59 Intake Total 1075 1654 Output Total 3525 2295 28 Balance -740 -641 -28 ICD10 Worksheet Patient Problems: Problems Problem Status Onset Primary localized osteoarthritis of right knee Acute History of primary bladder cancer Chronic Parastomal hernia of ileal conduit Chronic
[2017-04-13] MEDS: OXYCODONE/APAP 5/325 TAB PO PRN ×2 (09:40→17:24)
[2017-04-13] MEDS ORDERED: DIGOXIN 125 MCG TAB PO SCH (10:00)
--- NOTE | 2017-04-13 10:24 | PDCARPN ---
Cardiology Progress Note Assessment/Plan: Assessment: 1. HX Atrial fibrillation HTN, HLP, bladder cancer and 2. POD#8 for complex ventral hernia surgery 3. A Fib w/ RVR on admit to PCU. Today rates 90's to 120. Has been on IV Dilt. His IV site infiltrated and difficulty restarting. 4. Rates have dropped with brief episodes of Sinus beats. He denies symptoms: no chest pains/ pressure, no SOB sitting in chair. 5. Anticoagulation is Lovenox (DVT prophylaxis dose, no CVA prophylaxis with less than 1 mg/kg twice per day) Plan: Continue BB for HTN and for rate control. Continue Dig 250 mcg for rate and assist to possible convert to RSR. Switch to oral Diltiazem ER 180 mg QD Nephrology continues to follow. Consider coumadin once OK by surgery, given CVA risk and the ongoing atrial fibrillation 04/13/17 10:06 Subjective: I feel better today. I dont feel SOB sitting up. Reviewed/Discussed With: hospitalist, multidisciplinary team Objective: Vital Signs (8 Hrs) Temp Pulse Resp BP Pulse Ox 04/13/17 08:00 36.7 C 138 H 20 129/83 H 95 04/13/17 03:47 36.9 C 106 H 20 99/59 L 92 04/13/17 02:42 116 H Intake/Output (24 Hrs) 04/12/17 04/13/17 04/14/17 05:59 05:59 05:59 Intake Total 1075 1654 Output Total 1815 2295 28 Balance -740 -641 -28 Intake: Oral (ml) 1000 1530 IV Infused (ml) 75 124 Diltiazem 125 mg In D5w 75 124 125 ml @ Per Protocol IV CONT NIRAV Rx#:[id number] Output: Urine (ml) 1650 2170 Urostomy 1650 2170 ANDREW Drain Output (ml) 165 125 28 #1 Left Abdomen Guillermo 5 Le #2 Left Abdomen Guillermo 160 125 28 Le Other: Number of Stools Toilet 2 Result Diagrams: 04/11/17 05:33 04/13/17 03:49 - Physical Exam Constitutional: no apparent distress Cardiovascular: no murmurs, no rubs, irregularly irregular Respiratory: reduced air movement, No no crackles, No no wheezes Skin: no rashes, No no edema (edema 2+ of lower legs sitting up with legs down) Neurologic: AAOx3 Psychiatric: cooperative, interactive ICD10 Worksheet Patient Problems: Problems Problem Status Onset Primary localized osteoarthritis of right knee Acute History of primary bladder cancer Chronic Parastomal hernia of ileal conduit Chronic
[2017-04-13] MEDS ORDERED: FUROSEMIDE 40 MG/4 ML VIAL IVP ONE (11:08)
--- NOTE | 2017-04-13 11:13 | SOAPPROG ---
SOAP Progress Note Assessment/Plan: Assessment: 1. KB on CKD Non oliguric, likely ischemic ATN. BL 1.6, peaked 2.6. Now stalled at 2.4. He is volume increased. He responded to lasix yesterday, will redose today. 2. Hypoxemia/Dyspnea/A fib Volume increased. CXR has shown atelectasis, but he appeared to be in failure yesterday. He did have good net diuresis yesterday. Will review med regiment with cards. 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 Discuss plans for conversion. 3. s/p Ventral herniorrhaphy. Doing well in the regard. Flatus, stools, and good appetite 4. HTN Stable 04/13/17 11:09 Subjective: Looks better today, after slowing Objective: Vital Signs Temp Pulse Resp BP Pulse Ox 36.7 C 138 H 20 129/83 H 95 04/13/17 08:00 04/13/17 08:00 04/13/17 08:00 04/13/17 08:00 04/13/17 08:00 Laboratory Results 04/11/17 05:33 04/13/17 03:49 04/12/17 04/13/17 04/14/17 05:59 05:59 05:59 Intake Total 1075 1654 Output Total 1815 [address] [facility] -740 -641 -28 Physical Exam - Physical Exam General Appearance: no apparent distress Respiratory: decreased breath sounds Cardiac/Chest: tachycardia, irregularly irregular Abdomen: soft Extremities: pedal edema Neuro/Psych: oriented x 3 ICD10 Worksheet Patient Problems: Problems Problem Status Onset Primary localized osteoarthritis of right knee Acute History of primary bladder cancer Chronic Parastomal hernia of ileal conduit Chronic
[2017-04-13] MEDS: DILTIAZEM CD 180 MG CAP PO SCH (11:26)
[2017-04-13] MEDS: DIAZEPAM 5 MG TAB PO PRN (17:55)
[2017-04-13] MEDS: OXYMETAZOLINE 30 ML NASAL SPRAY EACHNARE PRN (23:06)
[2017-04-14] MEDS: DIAZEPAM 5 MG TAB PO PRN ×2 (00:05→09:22)
[2017-04-14 05:26] LABS: ALBUMIN 2.8 g/dL (3.5-5.0); ANION GAP 13 mEq/L (8-16); CALCIUM 8.6 mg/dL (8.5-10.4); CARBON DIOXIDE 25 mEq/l (22-31); CHLORIDE 98 mEq/L (97-110); CREATININE 2.2 mg/dL (0.7-1.3); DIGOXIN 0.7 ng/mL (0.8-2.0); GLOMERULAR FILTRATION RATE 30; GLUCOSE 110 mg/dL (70-100); POTASSIUM 3.8 mEq/L (3.5-5.2); SODIUM 136 mEq/L (134-144)
--- NOTE | 2017-04-14 08:31 | SOAPPROG ---
SOAP Progress Note Assessment/Plan: Assessment/Plan: POD#9 s/p ventral hernia repair with Alloderm mesh Afib not responsive current medication regimen No hemodynamic instability however blood pressure today was 95/60 patient was asymptomatic. Repeat blood pressure is pending Hypoxic on 4 L NC diuresed by Nephrology yesterday. Creatinine is now down to 2.2 Ambulatory with assist Tolerating diet irreg/irreg CTA Abd soft NT incision c/d ANDREW serosang/some purulence today no incisional erythema nontender to palpation. Continue to monitor 1-2+ non pitting edema Patient would be okay for anticoagulation at any point. Coumadin would be fine. Discussed this with the patient this morning. Goals of discharge would be for him to have a stable regimen for his atrial fibrillation and have either a new set point or slowly improving renal picture. My feeling is the patient will be ready to be discharged by Saturday or Saturday of this week if anticoagulation can be sorted out by then. 04/12/17 13:44 04/13/17 08:42 04/14/17 08:28 Objective: Vital Signs Temp Pulse Resp BP Pulse Ox 36.6 C 113 H 18 95/57 L 92 04/14/17 07:50 04/14/17 07:50 04/14/17 04:00 04/14/17 07:50 04/14/17 07:50 Laboratory Results 04/11/17 05:33 04/14/17 04:17 04/13/17 04/14/17 04/15/17 05:59 05:59 05:59 Intake Total 1658 700 Output Total 0985 2765 Balance -997 -1384 ICD10 Worksheet Patient Problems: Problems Problem Status Onset Primary localized osteoarthritis of right knee Acute History of primary bladder cancer Chronic Parastomal hernia of ileal conduit Chronic
[2017-04-14] MEDS: DILTIAZEM CD 180 MG CAP PO SCH (09:21)
[2017-04-14] MEDS: ENOXAPARIN 40 MG/0.4 ML SYR SC SCH (09:21)
[2017-04-14] MEDS: SENNOSIDES/DOCUSATE SODIUM TAB PO SCH (09:21)
[2017-04-14] MEDS: ATENOLOL 50 MG TAB PO SCH (09:21)
[2017-04-14] MEDS: OXYCODONE/APAP 5/325 TAB PO PRN (09:22)
--- NOTE | 2017-04-14 09:24 | SOAPPROG ---
SOAP Progress Note Assessment/Plan: Assessment: 1. KB on CKD Non oliguric, likely ischemic ATN. BL 1.6, peaked 2.6. He had good net diuresis last 48 hours with IV lasix. Now, Cr falling, and he appears to be auto diuresing. Hope to see ongoing recovery. 2. Hypoxemia/Dyspnea/A fib Volume status improving. Lung exam better. His rate has slowed. Cards to determine additional goals and anticoagulation. 3. s/p Ventral herniorrhaphy. Doing well in the regard. Flatus, stools, and good appetite 4. HTN BP is actually low now. No symptoms. Only meds are related to AV slowing. 04/13/17 11:09 04/14/17 09:20 04/14/17 09:22 Subjective: Doing better Objective: Vital Signs Temp Pulse Resp BP Pulse Ox 36.6 C 113 H 18 95/57 L 92 04/14/17 07:50 04/14/17 07:50 04/14/17 04:00 04/14/17 07:50 04/14/17 07:50 Laboratory Results 04/11/17 05:33 04/14/17 04:17 04/13/17 04/14/17 04/15/17 05:59 05:59 05:59 Intake Total 1654 700 Output Total 1991 4151 Balance -643 -1655 Physical Exam - Physical Exam General Appearance: no apparent distress Respiratory: other (bronchial BS in bases, but better air flow.) Cardiac/Chest: irregularly irregular Extremities: pedal edema (1+) Neuro/Psych: normal mood/affect, oriented x 3 ICD10 Worksheet Patient Problems: Problems Problem Status Onset Primary localized osteoarthritis of right knee Acute History of primary bladder cancer Chronic Parastomal hernia of ileal conduit Chronic
[2017-04-14] MEDS ORDERED: FUROSEMIDE 40 MG TAB PO SCH (09:30)
--- NOTE | 2017-04-14 09:37 | SOAPPROG ---
SOAP Progress Note Assessment/Plan: Assessment: Cardiology Progress Note Assessment/Plan: Assessment: 1. HX Atrial fibrillation HTN, HLP, bladder cancer and 2. POD#8 for complex ventral hernia surgery 3. A Fib w/ RVR on admit to PCU. Today rates 90's to 120. pt on po diltiazem and atenolol...digoxin dc'd 5. Anticoagulation with coumadin to be started today 7. cri..creat 2.2..folllowed by renal Plan:1. coumadin 04/14/17 09:34 Subjective: pt without cv c/o..discussed coumaddin anticoagulation and issues..pt has been on this drug before without problems Objective: Vital Signs Temp Pulse Resp BP Pulse Ox 36.6 C 113 H 18 95/57 L 92 04/14/17 07:50 04/14/17 07:50 04/14/17 04:00 04/14/17 07:50 04/14/17 07:50 Laboratory Results 04/11/17 05:33 04/14/17 04:17 04/13/17 04/14/17 04/15/17 05:59 05:59 05:59 Intake Total 1650 700 Output Total 7096 6851 Balance -008 -0119 ICD10 Worksheet Patient Problems: Problems Problem Status Onset Primary localized osteoarthritis of right knee Acute History of primary bladder cancer Chronic Parastomal hernia of ileal conduit Chronic
[2017-04-14] MEDS ORDERED: WARFARIN SODIUM 7.5 MG TAB PO ONE (16:00)
[2017-04-15] MEDS: SENNOSIDES/DOCUSATE SODIUM TAB PO SCH ×3 (01:22→21:05)
[2017-04-15 04:48] LABS: INR 1.15 (0.83-1.16); PROTIME(PATIENT) 14.6 SEC (12.0-15.0)
[2017-04-15 04:58] LABS: ANION GAP 14 mEq/L (8-16); CALCIUM 8.3 mg/dL (8.5-10.4); CARBON DIOXIDE 23 mEq/l (22-31); CHLORIDE 97 mEq/L (97-110); CREATININE 2.1 mg/dL (0.7-1.3); GLOMERULAR FILTRATION RATE 31; GLUCOSE 104 mg/dL (70-100); SODIUM 134 mEq/L (134-144)
[2017-04-15] MEDS: OXYCODONE/APAP 5/325 TAB PO PRN ×2 (06:22→19:45)
[2017-04-15] MEDS: DIAZEPAM 5 MG TAB PO PRN ×2 (06:22→19:45)
[2017-04-15] MEDS: OXYMETAZOLINE 30 ML NASAL SPRAY EACHNARE PRN (06:24)
--- NOTE | 2017-04-15 07:44 | SOAPPROG ---
SOAP Progress Note Assessment/Plan: Assessment: 1. KB on CKD. Creat returning to b/l of 1.6, currently 2.1. 2. CHF. Modest diuresis w/o lasix. Appears overloaded with pulm edema, comfortable though. Give dose of lasix IV now. 3. Ventrial hernia. S/p repair POD #10. Continue IS, ambulation. 4. AF. Rate controlled. Watch lower BPs with conversion of dig to dilt. On coumadin. Plan: 04/15/17 07:43 04/15/17 07:45 04/15/17 07:45 Subjective: Not on O2 at home. Appetite slowly improving. No new complaints today. Denies cough, hx emphysema. Objective: Vital Signs Temp Pulse Resp BP Pulse Ox 37.4 C 111 H 18 103/67 93 04/15/17 04:00 04/15/17 04:00 04/15/17 04:00 04/15/17 04:00 04/15/17 04:00 Laboratory Results 04/11/17 05:33 04/15/17 04:05 04/14/17 04/15/17 04/16/17 05:59 05:59 05:59 Intake Total 700 Output Total 2358 1250 Balance -1658 -1250 PT 14.6 SEC (12.0-15.0) 04/15/17 04:05 INR 1.15 (0.83-1.16) 04/15/17 04:05 In bed, on NC O2, mildly increased WOB IRIR, no m/g/r, JVD 8-10 cm Diffuse end expiratory wheezes Abdom mildly distended, soft, nt, midline incision c/d/i 2+ LE pitting edema ICD10 Worksheet Patient Problems: Problems Problem Status Onset Primary localized osteoarthritis of right knee Acute Parastomal hernia of ileal conduit Chronic History of primary bladder cancer Chronic
[2017-04-15] MEDS ORDERED: FUROSEMIDE 40 MG/4 ML VIAL IVP ONE (07:46)
[2017-04-15] MEDS: DILTIAZEM CD 180 MG CAP PO SCH (08:30)
[2017-04-15] MEDS: ENOXAPARIN 40 MG/0.4 ML SYR SC SCH (08:31)
[2017-04-15] MEDS: ATENOLOL 50 MG TAB PO SCH (08:42)
--- NOTE | 2017-04-15 12:47 | SOAPPROG ---
DUSTY Progress Note Assessment/Plan: Assessment/Plan: POD#10 s/p ventral hernia repair with Alloderm mesh Afib not responsive current medication regimen Alexander Mosley contemplating electrical cardioversion 04/16 No hemodynamic instability Hypoxic on 4 L NC diuresed by Nephrology yesterday. Creatinine is now down to 2.1 Ambulatory with assist Tolerating diet irreg/irreg CTA Abd soft NT incision c/d ANDREW serosang/some purulence today no incisional erythema nontender to palpation. Continue to monitor 1-2+ non pitting edema Patient would be okay for anticoagulation at any point. Coumadin would be fine. Discussed this with the patient this morning. Goals of discharge would be for him to have a stable regimen for his atrial fibrillation and have either a new set point or slowly improving renal picture. My feeling is the patient will be ready to be discharged this week if afib/anticoagulation can be sorted out by then. 04/15/17 12:46 Objective: Vital Signs Temp Pulse Resp BP Pulse Ox 37.2 C 120 H 17 104/58 L 94 04/15/17 08:00 04/15/17 08:28 04/15/17 08:00 04/15/17 08:28 04/15/17 08:00 Laboratory Results 04/11/17 05:33 04/15/17 04:05 04/14/17 04/15/17 04/16/17 05:59 05:59 05:59 Intake Total 700 Output Total 4078 1250 Balance -1658 -1250 PT 14.6 SEC (12.0-15.0) 04/15/17 04:05 INR 1.15 (0.83-1.16) 04/15/17 04:05 ICD10 Worksheet Patient Problems: Problems Problem Status Onset Primary localized osteoarthritis of right knee Acute History of primary bladder cancer Chronic Parastomal hernia of ileal conduit Chronic
--- NOTE | 2017-04-15 13:53 | PDCARPN ---
Cardiology Progress Note Chief Complaint: patient reports mild shortness of breath. Assessment/Plan: Assessment: 72-year-old male with history of atrial fibrillation (chads Vasc score of 2) on on anticoagulation as an outpatient, hypertension, hyperlipidemia, bladder cancer, renal insufficiency. Underwent ventral hernia repair with alloderm mesh on April [address] Palencia. Postop day 7 patient developed AFib with RVR, attempted rate control home dose of atenolol and started on diltiazem gtt, transition to diltiazem p.o.. Also started on digoxin, but discontinued due to renal insufficiency. Most recent echocardiogram done 07/25/2016 showing normal LV systolic function with no regional wall motion abnormalities, EF 60%, diastolic dysfunction, mild aortic sclerosis, [id number] AI, mild MR, mild TR, RVSP 36 mmHg Today, patient's rate mildly controlled on current medication regime, noting ventricular rate between 90-140 BPM. Patient reports mild shortness of breath, creatinine mildly elevated IV Lasix given by Nephrology. Started on warfarin, INR subtherapeutic at 1.15. Denies of chest pressure or pain. Reports no lightheadedness near-syncope or syncopal events. Systolic blood pressure 90s to 100. Plan: 1. Persistent atrial fibrillation: Despite maximally tolerated medication therapy, patient rate remains at this points with episode of significant elevated rates up to 140 BPM. Due to lower systolic blood pressures, unable to titrate either atenolol or diltiazem. At this point, is felt that we should attempt to cardiovert him. Since he has not been on anticoagulation, we will plan for him to undergo CECILIA evaluation 1st to evaluate for any atrial thrombus. Will continue on current dose of warfarin therapy, managed by pharmacy. Have spoken to Dr. Palencia, he is okayed for bridging Lovenox at full anticoagulation level until INR is >= 2.0. We will plan for him to have a dose tomorrow a.m., before procedure. 2. Hypertension: Controlled on current medication regime, at points, mildly hypotensive, continue monitor on current medication regime. 3. Hyperlipidemia: Will restart him on home dose of atorvastatin. 4. Renal insufficiency: Creatinine 2.1 today, being followed by Nephrology. Patient appears to be mildly fluid overloaded IV Lasix dose ordered today. 04/15/17 13:50 Subjective: Patient denies of any chest pressure, pain, palpitations, lightheadedness, orthopnea near-syncope or syncopal events. Reviewed/Discussed With: other (Dr Lizama, Dr Palencia) Objective: Vital Signs (8 Hrs) Temp Pulse Resp BP Pulse Ox 04/15/17 08:28 120 H 104/58 L 04/15/17 08:00 37.2 C 120 H 17 98/58 L 94 Intake/Output (24 Hrs) 04/14/17 04/15/17 04/16/17 05:59 05:59 05:59 Intake Total 700 Output Total 2358 1250 Balance -1658 -1250 Intake: Oral (ml) 700 Output: Urine (ml) 2300 1150 Catheter 2300 1150 ANDREW Drain Output (ml) 58 100 #2 Left Abdomen Guillermo 58 100 Le Other: Intake Quantity Yes Sufficient Result Diagrams: 04/11/17 05:33 04/16/17 05:17 - Physical Exam Constitutional: no apparent distress, obese Ears, Nose, Mouth, Throat: moist mucous membranes Cardiovascular: systolic murmur ( 1 to 2/6 right upper sternal border.), irregularly irregular, jugular vein distention ( 4-5 cm above sternal notch at 45 degree angle), pulses symmetric bilat, No carotid bruit Peripheral Pulses: 1+: dorsalis-pedis (R), dorsalis-pedis (L), 2+: carotid (R), carotid (L) Respiratory: other ( Lungs are diminished in bases bilateral, no rhonchi, rales or wheezing noted. No accessary muscle use, no intercostal muscle retraction noted.) Gastrointestinal: normoactive bowel sounds, other ( Mid abdomen incision intact with cayden, no redness, swelling, or drainage) Genitourinary: other ( urostomy pink, draining to Browning bag.) Skin: warm, No no edema ( +1 peripheral edema bilateral lower extremities) Neurologic: AAOx3 Psychiatric: cooperative, interactive, following commands ICD10 Worksheet Patient Problems: Problems Problem Status Onset Primary localized osteoarthritis of right knee Acute History of primary bladder cancer Chronic Parastomal hernia of ileal conduit Chronic
[2017-04-15] MEDS ORDERED: WARFARIN SODIUM 7.5 MG TAB PO ONE (16:00)
[2017-04-15] MEDS: ATORVASTATIN CALCIUM 20 MG TAB PO SCH (17:43)
[2017-04-16] MEDS: DIAZEPAM 5 MG TAB PO PRN ×2 (05:15→19:46)
[2017-04-16] MEDS: OXYCODONE/APAP 5/325 TAB PO PRN ×2 (05:15→19:45)
[2017-04-16] MEDS ORDERED: NS 1,000 ML IV SCH (06:00)
[2017-04-16 06:22] LABS: INR 1.49 (0.83-1.16)
[2017-04-16 06:23] LABS: ALBUMIN 3.2 g/dL (3.5-5.0); ANION GAP 18 mEq/L (8-16); CALCIUM 8.5 mg/dL (8.5-10.4); CARBON DIOXIDE 21 mEq/l (22-31); CHLORIDE 97 mEq/L (97-110); DIGOXIN 0.4 ng/mL (0.8-2.0); GLOMERULAR FILTRATION RATE 33; GLUCOSE 119 mg/dL (70-100); POTASSIUM 3.7 mEq/L (3.5-5.2); SODIUM 136 mEq/L (134-144)
[2017-04-16] MEDS: ENOXAPARIN 100 MG/ML SYR SC SCH ×2 (08:00→21:56)
[2017-04-16] MEDS ORDERED: PROPOFOL 200 MG/20 ML VIAL ONE (09:06)
[2017-04-16] MEDS ORDERED: SUCCINYLCHOLINE CHLORIDE*ANESTHESIA ONLY*200 MG/10 ML SYR IVP ONE (09:06)
[2017-04-16] MEDS ORDERED: LIDOCAINE 2% 100 MG/5 ML SYR ONE (09:06)
[2017-04-16] MEDS: DILTIAZEM CD 180 MG CAP PO SCH (09:18)
[2017-04-16] MEDS: ATENOLOL 50 MG TAB PO SCH ×2 (09:18→10:25)
[2017-04-16] MEDS: SENNOSIDES/DOCUSATE SODIUM TAB PO SCH ×2 (09:19→21:57)
[2017-04-16] MEDS ORDERED: AMIODARONE HCL 100 ML IV ONE (09:19)
--- NOTE | 2017-04-16 09:21 | PDTEE1 ---
CECILIA Cardioversion Procedure Procedure: Electrical Cardioversion, Transesophageal Echo Indications: Atrial Fibrillation Consent: Signed and in Chart Anticoagulation: Warfarin, Lovenox Procedural Details: Pads were placed in anterior-posterior position. CECILIA probe was advanced and standard images obtained. There is no evidence of left atrial or left atrial appendage thrombus. Synchronized cardioversion attempt #1: 200J Synchronized cardioversion attempt #2: 300J Results: Normal sinus rhythm Conclusions: Successful CECILIA Cardioversion Patient Problems: Problems Problem Status Onset Primary localized osteoarthritis of right knee Acute Parastomal hernia of ileal conduit Chronic History of primary bladder cancer Chronic
--- NOTE | 2017-04-16 09:35 | CPEKG ---
Heart Rate: 84 RR Interval: 714 P-R Interval: 164 QRSD Interval: 96 QT Interval: 368 QTC Interval: 436 P [place]: 25 QRS [place]: 11 T Wave [place]: -20 EKG Severity - BORDERLINE ECG - EKG Impression: SINUS RHYTHM EKG Impression: BORDERLINE T ABNORMALITIES, INFERIOR LEADS EKG Impression: Right ventricular conduction defect EKG Impression: Possible left atrial abnormality EKG Impression: Low voltage throughout. EKG Impression: Possible right atrial enlargement. Electronically Signed By: Jeremy Johnson 16-Apr-2017 17:05:19
[2017-04-16] MEDS ORDERED: AMIODARONE HCL 200 ML IV ONE (10:43)
--- NOTE | 2017-04-16 10:49 | SOAPPROG ---
SOAP Progress Note Assessment/Plan: Assessment:Plan: CKD-baseline 1.6 ARF on CRF-creatinine peaked at 2.6 on 04/08/17 -now down to 2 -non-oliguric -lytes okay -some edema -likely ATN -daily labs -avoid NSAIDs RONALD-i ARB IV contrast CPM Afib-s/p dc cardioversion -now in NSR 04/16/17 10:47 Subjective: stable Objective: Vital Signs Temp Pulse Resp BP Pulse Ox 36.8 C 100 20 101/70 92 04/16/17 10:18 04/16/17 10:18 04/16/17 10:18 04/16/17 10:18 04/16/17 10:18 Laboratory Results 04/11/17 05:33 04/16/17 05:17 04/15/17 04/16/17 04/17/17 05:59 05:59 05:59 Intake Total 350 Output Total 1250 1975 Balance -1250 -1625 PT 18.0 SEC (12.0-15.0) H 04/16/17 06:00 INR 1.49 (0.83-1.16) H 04/16/17 06:00 Physical Exam - Physical Exam General Appearance: WD/WN, alert, no apparent distress EENT: normal ENT inspection Neck: normal inspection Respiratory: lungs clear, normal breath sounds, No respiratory distress Cardiac/Chest: regular rate, rhythm Abdomen: normal bowel sounds, non-tender Extremities: swelling (minimal) ICD10 Worksheet Patient Problems: Problems Problem Status Onset Primary localized osteoarthritis of right knee Acute History of primary bladder cancer Chronic Parastomal hernia of ileal conduit Chronic
--- NOTE | 2017-04-16 13:19 | PDCARPN ---
Cardiology Progress Note Chief Complaint: Patient reports no chest pain, improved shortness of breath. Assessment/Plan: Assessment: 72-year-old male with history of atrial fibrillation (chads Vasc score of 2) on on anticoagulation as an outpatient, hypertension, hyperlipidemia, bladder cancer, renal insufficiency. Underwent ventral hernia repair with alloderm mesh on April [address] Palencia. Postop day 7 patient developed AFib with RVR, attempted rate control home dose of atenolol and started on diltiazem gtt, transition to diltiazem p.o.. Also started on digoxin, but discontinued due to renal insufficiency. Most recent echocardiogram done 07/25/2016 showing normal LV systolic function with no regional wall motion abnormalities, EF 60%, diastolic dysfunction, mild aortic sclerosis, [id number] AI, mild MR, mild TR, RVSP 36 mmHg Today, patient underwent CECILIA cardioversion by Dr. Lizama requiring 2 shocks to successfully convert back to sinus rhythm. Unfortunately within 1-2 hours post procedure he converted back into atrial fibrillation. He has been started on IV amiodarone, per protocol, and after an hour, has converted back to sinus rhythm. Denies of any chest pain, palpitations, or lightheadedness. Reports improvement in shortness of breath. Creatinine remained stable 2.0. Per Dr Lizama, from the CECILIA, EF WNL and no significant valve disease. Plan: 1. Persistent atrial fibrillation: Patient underwent cardioversion, unable to obtain adequate rate control due to hypotension with AV boris agents. Unfortunately were went back into atrial fibrillation soon afterwards, has been started on antiarrhythmic therapy of amiodarone, with plans of running him for 24 hours on drip, and then sending him home on oral dose inch of 200 mg p. o. twice daily for the next 2 weeks, then decrease down to 200 mg once daily. We have plans of only keeping him on for 2-3 months, until he has recovered, then consideration of discontinuing. With the starting of the amiodarone, maintaining sinus rhythm, and episodes of hypotension, will do discontinue his diltiazem at this time, but continue atenolol dosage. INRs remains subtherapeutic, has been started Lovenox, which she should remain on until INRs are therapeutic of greater than 2.0. Patient is planned to be discharged home home health, but will eventually need to be followed in [facility]. 2. Hypertension: BP controlled, D/C Cardizem as above. Continue to monitor 3. Hyperlipidemia: Atorvastatin restarted. 4. Renal insufficiency: Creatinine 2.0 today, being followed by Nephrology. If the patient continues to stay in sinus rhythm, more likely can be discharged tomorrow morning. Patient will need to follow up with Dr Lakhani (his primary cardiology) in 7-10 day 04/16/17 13:14 Subjective: Patient reporting no chest pain or pressure. Reports no palpitations or lightheadedness. Reports significant improvement in shortness of breath. Reviewed/Discussed With: other (Dr Lizama) Objective: Vital Signs (8 Hrs) Temp Pulse Resp BP Pulse Ox 04/16/17 12:00 36.8 C 79 20 109/76 96 04/16/17 10:18 36.8 C 100 20 101/70 92 04/16/17 07:30 36.5 C 116 H 16 110/57 L 91 L Intake/Output (24 Hrs) 04/15/17 04/16/17 04/17/17 05:59 05:59 05:59 Intake Total 350 Output Total 1250 1974 Balance -1250 -1625 Intake: Oral (ml) 350 Output: Urine (ml) 1150 1870 Catheter 1150 1350 Urostomy 520 ANDREW Drain Output (ml) 100 105 #2 Left Abdomen Guillermo 100 105 Le Other: Output Comment Toilet wt 111.4 standing Number of Stools Toilet 1 Result Diagrams: 04/11/17 05:33 04/16/17 05:17 - Physical Exam Constitutional: no apparent distress, obese Cardiovascular: regular rate and rhythm, no rubs, no gallops, systolic murmur (2 /6), No jugular vein distention Peripheral Pulses: 1+: dorsalis-pedis (R), dorsalis-pedis (L), 2+: carotid (R), carotid (L) Respiratory: other (Lungs diminished in bases, no rhonchi, rales, or wheezing noted, no accessory muscle use, no intercostal muscle retraction noted.) Gastrointestinal: normoactive bowel sounds, other (Abdominal incision intact with cayden, no redness, swelling, or drainage.) Skin: No no edema (Trace pedal edema.) Neurologic: AAOx3 Psychiatric: cooperative, interactive, following commands ICD10 Worksheet Patient Problems: Problems Problem Status Onset Primary localized osteoarthritis of right knee Acute Parastomal hernia of ileal conduit Chronic History of primary bladder cancer Chronic
[2017-04-16] MEDS ORDERED: WARFARIN SODIUM 5 MG TAB PO ONE (16:00)
[2017-04-16] MEDS ORDERED: AMIODARONE HCL 540 MG in D5W 300 ML IV ONE (17:00)
[2017-04-16] MEDS: ATORVASTATIN CALCIUM 20 MG TAB PO SCH (17:08)
--- NOTE | 2017-04-16 17:10 | SOAPPROG ---
SOAP Progress Note Assessment/Plan: Assessment: CECILIA/DC cardio earlier - converted then reverted to afib. on amio drip and anticoag. no complaints. no cp. no abd complaints. afebrile. bp 90. comfortable. abd soft, nontender. drain unchanged. doing well from GI standpoint. ARF improving (cr 2). afib - currently being amio loaded per cards. anticipate dc tomorrow once cv meds loaded. no new complaints. po better. activity better. still intermittent tachy per nursing staff. avss. comfortable. abd less dist. incis clean. marry serosang. improved. cr 2.4 - stable. plan for dc tomorrow. will review with cards any further reccs. remove left drain. intermittent tachy overnight per nursing staff (pulse max 150) - he denies any palpitations (usually knows when back in afib). patient without new complaints. +flatus. small po. pain controlled. Afebrile. BP 110. P90-150. comfortable. heart reg. lungs clear. abd soft, min dist. MARRY thin serosang. Cr. 2.3. pod#4 s/p complex ventral hernia repair. clinically doing very well. ileus improving. NAYELI improving. prob more parox afib - will check EKG and increase atenolol. if persists, will discuss with cards role for anticoagulation. Breathing better. EKG and CXR normal. pain controlled. ambulating. AVSS. UOP 1500 - 1000. up in chair. comfortable. abd soft, min dist. marry serosan. cr 2.6, bun 44. pod#3 s/p complex ventral hernia repair. increased creat. apprec renal input. anticipate fluid mobilization today. cont supportive care. diet as able. ambulate. c/o SOB. anxious. no ambulation. no current nausea. avoiding postop narcotics because of fear of stopping breathing. AVSS. comfortable. anxious appearing. shallow breathing. heart regular. lungs diminished bilat. abd soft, incis clean, not signif taught. MARRY serosang. Cr 2.5. POD#2 s/p complex abd wall reconstruction. suspect SBO secondary to anxiety/need for pain meds - will obtain CXR and EKG - add valium and encourage use of analgesics. increased creat - cont IVF/supportive care - expect significant fluid shifts today and tomorrow - apprec renal input - mag suppl. no overnight issues. comfortable. AVSS. alert, appropriate, intubated. heart regular. lungs clear. abd soft, dist. dressings dry. MARRY serosang. urine clear. Cr 2.2, K 5.3. Hb 11. POD #1 s/p abd wall reconstruction with mesh. CRI - elev creat, good UOP, will cont IVF, K removed last evening, will consult nephrology for assistance (sees Dr. Maldonado regularly). Tx floor once extubated. Diet as able. Plan: 04/06/17 09:22 04/07/17 09:57 04/08/17 07:57 04/09/17 12:30 04/11/17 07:41 04/16/17 17:08 Objective: Vital Signs Temp Pulse Resp BP Pulse Ox 36.6 C 80 20 96/75 L 91 L 04/16/17 15:36 04/16/17 15:36 04/16/17 15:36 04/16/17 15:36 04/16/17 15:36 Laboratory Results 04/11/17 05:33 04/16/17 05:17 04/15/17 04/16/17 04/17/17 05:59 05:59 05:59 Intake Total 350 Output Total 1250 1974 Balance -1250 -1625 PT 18.0 SEC (12.0-15.0) H 04/16/17 06:00 INR 1.49 (0.83-1.16) H 04/16/17 06:00 ICD10 Worksheet Patient Problems: Problems Problem Status Onset Primary localized osteoarthritis of right knee Acute History of primary bladder cancer Chronic Parastomal hernia of ileal conduit Chronic
[2017-04-16] MEDS: OXYMETAZOLINE 30 ML NASAL SPRAY EACHNARE PRN (23:22)
[2017-04-17 05:04] LABS: INR 1.8 (0.83-1.16)
[2017-04-17 06:05] LABS: ALANINE AMINOTRANSFERASE 30 IU/L (21-72); ALBUMIN 2.6 g/dL (3.5-5.0); ALKALINE PHOSPHATASE 65 IU/L (38-126); ANION GAP 9 mEq/L (8-16); ASPARTATE AMINOTRANSFERASE 29 IU/L (17-59); BILIRUBIN,TOTAL 0.5 mg/dL (0.1-1.4); CALCIUM 7.9 mg/dL (8.5-10.4); CARBON DIOXIDE 25 mEq/l (22-31); CHLORIDE 100 mEq/L (97-110); CREATININE 1.8 mg/dL (0.7-1.3); GLOMERULAR FILTRATION RATE 37; GLUCOSE 119 mg/dL (70-100); SODIUM 134 mEq/L (134-144); TOTAL PROTEIN 5.2 g/dL (6.3-8.2)
[2017-04-17] MEDS: AMIODARONE HCL 200 MG TAB PO SCH (08:19)
[2017-04-17] MEDS: OXYCODONE/APAP 5/325 TAB PO PRN ×2 (08:19→18:22)
[2017-04-17] MEDS: DIAZEPAM 5 MG TAB PO PRN ×2 (08:20→18:21)
[2017-04-17] MEDS: ATENOLOL 50 MG TAB PO SCH (08:20)
[2017-04-17] MEDS: ENOXAPARIN 100 MG/ML SYR SC SCH ×2 (08:20→20:45)
--- NOTE | 2017-04-17 09:29 | CPEKG ---
Heart Rate: 67 RR Interval: 896 P-R Interval: 164 QRSD Interval: 106 QT Interval: 400 QTC Interval: 423 P [place]: 28 QRS [place]: 4 T Wave [place]: -4 EKG Severity - BORDERLINE ECG - EKG Impression: SINUS RHYTHM EKG Impression: BORDERLINE T ABNORMALITIES, INFERIOR LEADS EKG Impression: Possible left atrial abnormality EKG Impression: Right ventricular conduction defect EKG Impression: No significant change from April 16, 2017 EKG Impression: Poor R-wave progression. Must consider possibility of an old anterior EKG Impression: myocardial infarction. Electronically Signed By: Jeremy Johnson 17-Apr-2017 11:00:51
[2017-04-17] MEDS: LEVOTHYROXINE 150 MCG TAB PO SCH (09:52)
[2017-04-17] MEDS: SENNOSIDES/DOCUSATE SODIUM TAB PO SCH ×2 (10:00→20:45)
--- NOTE | 2017-04-17 11:53 | SOAPPROG ---
SOAP Progress Note Assessment/Plan: Assessment: 1. KB on CKD Cr close to baseline. He is auto diuresing. Reviewed with patient and Dr. Bentley. He typically does well without diuretics. He will go home and monitor weights on a daily basis. He should get an RFP next Saturday, then follow up with IN[employer] DEVELOPER Mikayla Reyez at [facility] ([phone]) in one to two weeks. 2. Hypoxemia/Dyspnea/A fib In NSR. He will have cards follow up. 3. s/p Ventral herniorrhaphy. Doing well in the regard. Flatus, stools, and good appetite 4. HTN BP is actually low now. No symptoms. Only meds are related to AV slowing. Subjective: Doing better Objective: Vital Signs Temp Pulse Resp BP Pulse Ox 36.6 C 73 20 104/67 97 04/17/17 07:40 04/17/17 07:40 04/17/17 07:40 04/17/17 07:40 04/17/17 07:40 Laboratory Results 04/11/17 05:33 04/17/17 03:57 04/16/17 04/17/17 04/18/17 05:59 05:59 05:59 Intake Total 350 1735 Output Total 1975 1250 Balance -1625 485 PT 21.0 SEC (12.0-15.0) H 04/17/17 03:57 INR 1.80 (0.83-1.16) H 04/17/17 03:57 Physical Exam - Physical Exam General Appearance: no apparent distress Respiratory: lungs clear Cardiac/Chest: regular rate, rhythm Extremities: pedal edema Neuro/Psych: oriented x 3 ICD10 Worksheet Patient Problems: Problems Problem Status Onset Primary localized osteoarthritis of right knee Acute History of primary bladder cancer Chronic Parastomal hernia of ileal conduit Chronic
--- NOTE | 2017-04-17 12:44 | PDCARPN ---
Cardiology Progress Note Chief Complaint: Patient reports he would like to go home. Reports mild dyspnea on exertion Assessment/Plan: Assessment: 72-year-old male with history of atrial fibrillation (chads Vasc score of 2) on no anticoagulation as an outpatient, hypertension, hyperlipidemia, bladder cancer, renal insufficiency. Underwent ventral hernia repair with alloderm mesh on April [address] Palencia. Postop day 7 patient developed AFib with RVR, attempted rate control home dose of atenolol and started on diltiazem gtt, transition to diltiazem p.o.. Also started on digoxin, but discontinued due to renal insufficiency. Most recent echocardiogram done 07/25/2016 showing normal LV systolic function with no regional wall motion abnormalities, EF 60%, diastolic dysfunction, mild aortic sclerosis, [id number] AI, mild MR, mild TR, RVSP 36 mmHg Today patient has been maintaining sinus rhythm, continuous cardiac monitoring shows since conversion on amiodarone yesterday, only 7-8 beat run AFib noted last evening. Patient denies of any adverse reaction medication. Denies of any chest pressure or pain. Reports improvement in his shortness of breath. TSH elevated at 9.060, but T4 and T3 within normal limits. Creatinine improved, 1.8. Patient's INR up to 1.8 today. Patient remains hypoxic off of oxygen, with saturations decreasing down to 70. Electrocardiogram today showing sinus rhythm T-wave inversion in lead II,III. QTC 423 millisecond. Patient reports no chest pain or pressure. Reports shortness of breath has improved. Lungs are clear, but diminished in bases bilateral. Plan: 1. Persistent atrial fibrillation: Patient has been maintaining sinus rhythm. Finished IV amiodarone protocol. Started on oral amiodarone today. Will plan on him continuing amiodarone 200 mg p. o. twice daily for 2 weeks, then decreasing down to 200 mg q.day. Will only plan for him to be on amiodarone for 1-2 months, until he recovers, and then consideration of discontinuing. Continue on current dose of atenolol. Patient INR up to 1.8. Have spoken to pharmacy, they will plan on him going home on 5 mg q.day. Will plan on bridging him with Lovenox tonight and tomorrow. Repeated INR on Saturday by [employer], call to our office. Once patient is done with home health, will need to be transitioned to [facility]. 2. Hypertension: BP controlled, continue on atenolol as mentioned above. 3. Hypoxia: Patient's SpO2 down to 70s on room air. Due to recent persistent atrial fibrillation, would like him to continue using oxygen therapy around the clock when discharge, home oxygen ordered, re-evaluate when he sees Dr. Lakhani in the office on April 26. Patient encouraged to continue using incentive spirometer on a daily basis. 4. High TSH: T3 and T4 within normal limits. Patient does not want to take Synthroid, as ordered by Dr. Palencia. Have recommended that he follow up PCP in the next week or so far, for re-evaluation. 5. Hyperlipidemia: Continue on home statin dosage 6. Renal insufficiency: Have discussed with Dr. Rodriguez. Patient encouraged daily weights, follow up with Nephrology on as an outpatient. From cardiac standpoint, patient can be discharged today, he has a follow-up office appointment made to see Dr. Lakhani, his primary paste up artist, on the 26 of April. We have discussed medication compliance. Again repeated INR on Saturday of this week. We have discussed bridging with Lovenox. 04/17/17 12:34 Subjective: Patient denies of any chest pressure or pain, palpitations, lightheadedness, orthopnea, near-syncope or syncopal events. Reviewed/Discussed With: other (Dr Lizama, Dr. Rodriguez) Objective: Vital Signs (8 Hrs) Temp Pulse Resp BP Pulse Ox 04/17/17 12:00 36.5 C 66 18 104/66 97 04/17/17 07:40 36.6 C 73 20 104/67 97 Intake/Output (24 Hrs) 04/16/17 04/17/17 04/18/17 05:59 05:59 05:59 Intake Total 350 1735 Output Total 1975 1250 Balance -1625 485 Intake: Oral (ml) 350 720 IV Infused (ml) 1015 Amiodarone HCl 100 ml @ 100 600 mls/hr IV ONCE ONE Rx #:[id number] Amiodarone HCl 200 ml @ 200 33.333 mls/hr IV ONCE ONE Rx#:[id number] Amiodarone HCl 540 mg In 215 D5w 300 ml @ 16.667 mls/ hr IV ONCE ONE Rx#: [id number] Ns 1,000 ml @ TKO IV CONT 500 NIRAV Rx#:[id number] Output: Urine (ml) 1870 1150 Catheter 1350 Urostomy 520 1150 ANDREW Drain Output (ml) 105 100 #2 Left Abdomen Guillermo 105 100 Le Other: Output Comment Toilet wt 111.4 standing Number of Stools Toilet 1 1 Result Diagrams: 04/11/17 05:33 04/17/17 03:57 - Physical Exam Constitutional: no apparent distress, obese (Mild) Ears, Nose, Mouth, Throat: moist mucous membranes Cardiovascular: regular rate and rhythm, no rubs, no gallops, systolic murmur ( 1 to 2/6 left sternal border.), pulses symmetric bilat, No jugular vein distention, No carotid bruit Peripheral Pulses: 1+: dorsalis-pedis (R), dorsalis-pedis (L), 2+: carotid (R), carotid (L) Respiratory: other (Lungs are clear comma but diminished in bases bilateral, no rhonchi, rales, or wheezing noted. No accessory muscle use, no intercostal muscle retraction noted.) Gastrointestinal: normoactive bowel sounds, other (Abdominal incision intact with cayden, no redness, swelling, or drainage noted.) Genitourinary: other (Urostomy stoma pink, urine clear.) Skin: no rashes, warm, No no edema (Trace pedal edema bilateral lower extremities) Neurologic: AAOx3 Psychiatric: cooperative, interactive, following commands ICD10 Worksheet Patient Problems: Problems Problem Status Onset Primary localized osteoarthritis of right knee Acute History of primary bladder cancer Chronic Parastomal hernia of ileal conduit Chronic
[2017-04-17] MEDS ORDERED: WARFARIN SODIUM 2.5 MG TAB PO ONE (16:00)
[2017-04-17] MEDS: ATORVASTATIN CALCIUM 20 MG TAB PO SCH (18:21)
[2017-04-18 04:53] LABS: INR 1.99 (0.83-1.16); PROTIME(PATIENT) 22.7 SEC (12.0-15.0)
[2017-04-18] MEDS: OXYCODONE/APAP 5/325 TAB PO PRN (06:39)
[2017-04-18] MEDS: DIAZEPAM 5 MG TAB PO PRN (06:40)
[2017-04-18] MEDS: LEVOTHYROXINE 150 MCG TAB PO SCH (06:41)
--- NOTE | 2017-04-18 07:49 | SOAPPROG ---
SOAP Progress Note Assessment/Plan: Assessment: Patient had a good night. Pain controlled. O2 tank in room for d/c. No new complaints. afeb, VSS. Abd: soft, nontender, Incision clean and dry. Drybranch in place. Plan: d/c home today, home o2, scripts on chart from cardiology for Amio and anticoagulation (follow up with Dr Lakhani on April 26). Follow up with nephrology in 1-2 weeks (needs repeat renal panel on Saturday). Monitor daily weights. Discussed addition of Synthroid- pt still leaning towards not taking it. TSH generally followed by PCP. Follow up with Dr. Palencia in 1 week for staple removal. Plan: 04/18/17 07:47 04/18/17 07:52 Objective: Vital Signs Temp Pulse Resp BP Pulse Ox 36.5 C 74 16 102/71 94 04/18/17 04:00 04/18/17 04:00 04/18/17 04:00 04/18/17 04:00 04/18/17 04:00 Laboratory Results 04/11/17 05:33 04/17/17 03:57 04/17/17 04/18/17 04/19/17 05:59 05:59 05:59 Intake Total 1735 335 Output Total 1250 1260 Balance 485 -925 PT 22.7 SEC (12.0-15.0) H 04/18/17 03:50 INR 1.99 (0.83-1.16) H 04/18/17 03:50 ICD10 Worksheet Patient Problems: Problems Problem Status Onset Primary localized osteoarthritis of right knee Acute History of primary bladder cancer Chronic Parastomal hernia of ileal conduit Chronic
[2017-04-18] MEDS: SENNOSIDES/DOCUSATE SODIUM TAB PO SCH (08:25)
[2017-04-18] MEDS: ENOXAPARIN 100 MG/ML SYR SC SCH (08:25)
[2017-04-18] MEDS: ATENOLOL 50 MG TAB PO SCH (08:26)
[2017-04-18] MEDS: AMIODARONE HCL 200 MG TAB PO SCH (08:28)
[2017-04-18 08:29] VITALS: BP 92/60; PULSE 66
[2017-04-18 09:00] VITALS: RESP 24; TEMP 98.6; O2SAT 97
--- NOTE | 2017-04-18 09:25 | SOAPPROG ---
[facility] Progress Note Assessment/Plan: Assessment:Plan: CKD-baseline 1.6 ARF on CRF-creatinine peaked at 2.6 on 04/08/17 -now down to 1.8 -non-oliguric -lytes okay -some edema -likely ATN -avoid NSAIDs RONALD-i ARB IV contrast CPM Afib-s/p dc cardioversion -now in NSR CKD-baseline 1.6 -he will call Dr. Dias's office to arrange for post-hospital follow up Dispo-home today 04/18/17 09:21 Subjective: ready for discharge Objective: Vital Signs Temp Pulse Resp BP Pulse Ox 37.0 C 66 24 H 92/60 L 97 04/18/17 08:00 04/18/17 08:26 04/18/17 08:00 04/18/17 08:26 04/18/17 08:00 Laboratory Results 04/11/17 05:33 04/17/17 03:57 04/17/17 04/18/17 04/19/17 05:59 05:59 05:59 Intake Total 1735 335 Output Total 1250 1260 Balance 485 -925 PT 22.7 SEC (12.0-15.0) H 04/18/17 03:50 INR 1.99 (0.83-1.16) H 04/18/17 03:50 Physical Exam - Physical Exam General Appearance: WD/WN, alert, no apparent distress EENT: normal ENT inspection Neck: normal inspection Respiratory: lungs clear, decreased breath sounds (at bases) Cardiac/Chest: regular rate, rhythm Abdomen: normal bowel sounds, non-tender Extremities: swelling (1+) ICD10 Worksheet Patient Problems: Problems Problem Status Onset Primary localized osteoarthritis of right knee Acute History of primary bladder cancer Chronic Parastomal hernia of ileal conduit Chronic
--- NOTE | 2017-04-18 11:16 | PDCARPN ---
Cardiology Progress Note Chief Complaint: Patient reports he wants go home. Reports fatigue symptoms, but no chest pain or shortness of breath. Assessment/Plan: Assessment: 72-year-old male with history of atrial fibrillation (chads Vasc score of 2) on no anticoagulation as an outpatient, hypertension, hyperlipidemia, bladder cancer, renal insufficiency. Underwent ventral hernia repair with alloderm mesh on April [address] Palencia. Postop day 7 patient developed AFib with RVR, attempted rate control home dose of atenolol and started on diltiazem gtt, transition to diltiazem p.o.. Also started on digoxin, but discontinued due to renal insufficiency. Most recent echocardiogram done 07/25/2016 showing normal LV systolic function with no regional wall motion abnormalities, EF 60%, diastolic dysfunction, mild aortic sclerosis, [id number] AI, mild MR, mild TR, RVSP 36 mmHg Today, patient reports no chest pressure or pain. Wants to go home. Discharge orders have been written. INR noted to be 1.99. Reviewing continuous cardiac monitoring, he has maintained sinus rhythm. No malignant arrhythmias or pauses. Plan: 1. Persistent atrial fibrillation: Patient has been maintaining sinus rhythm. Will plan on him continuing amiodarone 200 mg p. o. twice daily for 2 weeks, then decreasing down to 200 mg q.day. Will only plan for him to be on amiodarone for 1-2 months, until he recovers, and then consideration of discontinuing. Continue on current dose of atenolol. INR at 1.99 today. Since he is close to therapeutic, will not have him be bridged on Lovenox. I would like him to have a repeat in INR done tomorrow to our office by home health care. He will be discharged home on warfarin at 5 mg p.o. q.day. Once he is done with home health care, we will transitioned over to [facility]. 2. Hypertension: BP controlled, continue on atenolol as mentioned above. I have asked the patient and his to keep a daily BP log, and bring into his next office visit. They have been told call our office if his systolic blood pressure is less than 100 mm Hg. 3. Hypoxia: Patient's SpO2 down to 70s on room air. Due to recent persistent atrial fibrillation, would like him to continue using oxygen therapy around the clock when discharge, home oxygen ordered, re-evaluate when he sees Dr. Lakhani in the office on April 26. Patient encouraged to continue using incentive spirometer on a daily basis. 4. High TSH: T3 and T4 within normal limits. Have recommended that he follow up PCP in the next week or so far, for re-evaluation. 5. Hyperlipidemia: Continue on home statin dosage 6. Renal insufficiency: Patient to follow up Nephrology as an outpatient. He has been asked to monitor his weight on a daily basis. If he gains more than 2 lb in a day or 5 lb a week he is to [facility] our service. Patient is being discharged home today, follow-up appointment with Dr. Lakhani on April 26. Follow up with [facility] as planned. Patient should also follow PCP 04/18/17 11:11 Subjective: Patient denies of any chest pressure or pain. Reports no palpitations, improvement in shortness of breath. Denies of any lightheadedness, near- syncope or syncopal events. Reviewed/Discussed With: other (Dr Lizama) Objective: Vital Signs (8 Hrs) Temp Pulse Resp BP Pulse Ox 04/18/17 08:26 66 92/60 L 04/18/17 08:00 37.0 C 67 24 H 92/60 L 97 04/18/17 04:00 36.5 C 74 16 102/71 94 Intake/Output (24 Hrs) 04/17/17 04/18/17 04/19/17 05:59 05:59 05:59 Intake Total 1735 335 Output Total 1250 1260 Balance 485 -925 Intake: Oral (ml) 720 300 IV Infused (ml) 1015 35 Amiodarone HCl 100 ml @ 100 600 mls/hr IV ONCE ONE Rx #:[id number] Amiodarone HCl 200 ml @ 200 33.333 mls/hr IV ONCE ONE Rx#:[id number] Amiodarone HCl 540 mg In 215 35 D5w 300 ml @ 16.667 mls/ hr IV ONCE ONE Rx#: [id number] Ns 1,000 ml @ TKO IV CONT 500 NIRAV Rx#:[id number] Output: Urine (ml) 1150 1200 Catheter 600 Urostomy 1150 600 ANDREW Drain Output (ml) 100 60 #2 Left Abdomen Guillermo 100 60 Le Other: Number of Stools Toilet 1 Result Diagrams: 04/11/17 05:33 04/17/17 03:57 - Physical Exam Constitutional: no apparent distress, obese Ears, Nose, Mouth, Throat: moist mucous membranes Cardiovascular: pulses symmetric bilat, carotid bruit, No jugular vein distention Peripheral Pulses: 1+: dorsalis-pedis (R), dorsalis-pedis (L), 2+: carotid (R), carotid (L) Respiratory: other (Lungs diminished in bases bilateral, no rhonchi, rales, or wheezing noted. No accessary muscle use, no intercostal muscle retraction noted.) Gastrointestinal: normoactive bowel sounds, other (Abdominal incision intact with cayden, no redness, swelling, drainage noted.) Genitourinary: other (Urostomy stoma pink) Skin: warm, no edema Neurologic: AAOx3 Psychiatric: cooperative, following commands ICD10 Worksheet Patient Problems: Problems Problem Status Onset Primary localized osteoarthritis of right knee Acute Parastomal hernia of ileal conduit Chronic History of primary bladder cancer Chronic
--- NOTE | 2017-04-18 15:38 | PDIAF ---
- Diagnosis Diagnosis: ventral hernia Code Status: Full Code - Medication Management Discharge Medications: Medications to Continue on Transfer Atorvastatin Calcium [Lipitor 20 mg (*)] 20 mg PO DAILY18 04/29/16 [Last Taken 12/04/16 22:00] Omeprazole [Prilosec 20 mg] 20 mg PO Q2D@1800 11/12/16 [Last Taken 12/03/16] Acetaminophen [Tylenol 325mg (*)] 325 mg PO DAILY PRN 02/08/17 [Last Taken Unknown] Aspirin [Aspirin 81mg (*)] 81 mg PO DAILY 02/08/17 [Last Taken Unknown] Amiodarone HCl [Pacerone (*)] 200 mg PO DAILY #0 tab 04/18/17 [Last Taken Unknown] Atenolol [Tenormin 50 mg (*)] 50 mg PO DAILY #0 tab 04/18/17 [Last Taken Unknown ] Enoxaparin [Lovenox 100 MG (*)] 100 mg SC BID #0 syr 04/18/17 [Last Taken Unknown] Levothyroxine [Synthroid 150 mcg (*)] 150 mcg PO DAILY AT 6AM #0 tab 04/18/17 [ Last Taken Unknown] Warfarin Sodium [Warfarin Pharmacy To Dose] 1 each MISC AD #0 ea 04/18/17 [Last Taken Unknown] oxyCODONE/APAP 5/325 [Percocet 5/325 (*)] 1 - 2 tab PO Q4 PRN #0 tab 04/18/17 [ Last Taken Unknown] Discharge Medications: Refer to the Discharge Home Medication list for PRN reason. - Orders Services needed: Home Care (Home RN to draw and call INR results to cardiology on Saturday04/19/17), Physical Therapy Home Care Face to Face: I certify that this patient was under my care and that I had the required [id number] encounter meeting the encounter requirements on the discharge day. My findings support the fact that the patient is homebound as defined in CMS Chapter 7 Medicare Benefits Manual 30.1.1, The condition of the patient is such that there exists a normal inability to leave home and consequently, leaving home would require a considerable and taxing effort. Oxygen: 2L continuous O2 Diet Recommendation: no restrictions on diet Diet Texture: Regular Texture Diet Weigh Patient: daily Sutures/Beatrice Site: mid abdomen- leave in place until he follows up with Dr. Palencia next week Activity/Weight Bearing Restrictions: as tolerated- encourage ambulation and deep breathing exercises. No strenuous lifting - Labs/Radiology Other Lab Name, Date and Time: Renal function panel to be drawn outpatient on Saturday04/22/17 - Follow Up Care Current Providers and Referrals: MARIA DE JESUS FOURNIER [Primary Care Provider] - Darrell Palencia MD [Medical Doctor] - Shawna Reyez NP [Non Staff and Non MD] - Wilmar Lakhani MD [Medical Doctor] - (04/26/2017 at 9:30 a.m.)
--- NOTE | 2017-04-18 17:42 | GDS ---
[f rep st] DISCHARGE SUMMARY HOSPITAL COURSE: The patient is a 72-year-old gentleman who has been followed by Dr. Palencia for quite some time. As of recent, he has had a known ventral hernia which had worsened to the point that his urostomy bag was unable to remain in place, and the decision was made for surgical repair. The patient was admitted on April 05, 2017, taken to the operating room, and underwent complex ventral herniorrhaphy with bilayered mesh placement, Symbotex and Strattice, takedown of enterocutaneous fistula x2, and partial revision of parastomal hernia. The patient tolerated the procedure well. Postoperatively he was admitted to the hospital for further monitoring. He developed recurrent atrial fibrillation as well as acute on chronic renal failure. Director [employer] as well as the wharf hand were consulted. The patient has undergone amiodarone loading and will be discharged on oral amiodarone. He also underwent attempted cardioversion which was successful for a brief period of time but then had recurrence of atrial fibrillation. As of yesterday morning , he was back in a normal sinus rhythm. He has been initiated on anticoagulation. His INR today is 1.9. The wharf hand again followed the patient throughout his postoperative course, and his creatinine has continued to improve. He had a peak creatinine of 2.6. As of yesterday morning, it was down to 1.8. He is otherwise progressing well. He has required the use of oxygen, and home oxygen has been ordered. A TSH level was also drawn and found to be 9, and recommendations have been made to start the patient on Synthroid. He is hesitant to start this medication. He is ambulating with a walker, and his pain is controlled. As of this morning, he is felt to be stable and ready for discharge home. He will again go home on home oxygen. He does have cayden in place on his incision which will remain in place for another week. Amiodarone and anticoagulation as instructed by Cardiology. He will follow up with Nephrology in 1-2 weeks and have a repeat renal panel on Saturday, and he will monitor his daily weights. We have provided a script for Synthroid, but the patient may wish to follow up with his PCP before initiating. He will follow up with Dr. Palencia in 1 week for wound check and staple removal. He will resume his previous home medications. Changes will include increasing his atenolol to 50 mg daily. He will be on amiodarone 200 mg twice daily for 2 weeks, then daily. Coumadin as directed. Percocet p.r.n. for pain. Synthroid 150 mg and Lovenox for bridge. He will continue Lipitor 20 mg daily, omeprazole 20 mg daily, aspirin 81 mg daily, and Tylenol 325 mg as needed. Full written and verbal discharge instructions will be reviewed with the patient. We will plan to see him back as noted above. /[id number]/MODL MTDD
== END 2017-04-18 13:29 | disposition home health service (06) | DRG 335 ==
LOC: F3E 10:31 → F2N 18:17 → F3E 04-06 21:41 → F2W 04-11 20:56
PROVIDERS: ADMIT Surgery; ATTEND Surgery
PROC: 5A1945Z Respiratory Ventilation, 24-96 Consecutive Hours (ICD-10-PCS; 2017-04-05)
PROC: 0DN80ZZ Release Small Intestine, Open Approach (ICD-10-PCS; principal; 2017-04-05 12:00)
PROC: 0WUF0JZ Supplement Abdominal Wall with Synthetic Substitute, Open Approach (ICD-10-PCS; principal; 2017-04-05 12:00)
PROC: 5A2204Z Restoration of Cardiac Rhythm, Single (ICD-10-PCS; 2017-04-16)
DX: K43.2 Incisional hernia without obstruction or gangrene (principal); N17.0 Acute kidney failure with tubular necrosis; I48.1 Persistent atrial fibrillation; N18.3 Chronic kidney disease, stage 3 (moderate); E03.9 Hypothyroidism, unspecified; E87.5 Hyperkalemia; D64.9 Anemia, unspecified; Z87.891 Personal history of nicotine dependence; Z85.51 Personal history of malignant neoplasm of bladder
CPT/HCPCS: 84481-90; 97116-GP; 97161-GP; 97165-GO; 97530-GP; 97535-GO; C1781; G0009; G8978-GP-CK; G8979-GP-CI; G8987-GO-CK; G8988-GO-CI; J0282; J0330; J0690; J1100; J1160; J1170; J1650; J1940; J2001; J2250; J2405; J2704; J2710; J3010; P9041; Q4130

== ENCOUNTER 2017-05-03 15:33 | Observation (INO) | payer OTHER, MEDICARE ==
--- NOTE | 2017-05-03 16:23 | EDPHY ---
H & P Time Seen by Provider: 05/03/17 16:23 HPI/ROS: CHIEF COMPLAINT: Rapid heart rate HISTORY OF PRESENT ILLNESS: Patient is a history of atrial fibrillation. He had large ventral hernia repair on April 05. Subsequently developed atrial fibrillation and was cardioverted at least once. Discontinued taking amiodarone 2 days ago. This morning he woke up and said that he felt "like shit " per his and his heart rate was noted to be high this morning by a home nurse. Yesterday his pulse was in the 60s. He presented to [facility] was noted to be in atrial flutter was sent to the ER for evaluation. Last water was at 1:30 p.m. and last food at 9:30 a.m.. He does feels tired and fatigued does not have chest pain or shortness of breath. REVIEW OF SYSTEMS: Eye: no change in vision ENT: no sore throat Cardiac: no chest pain or syncope Pulmonary: no cough or SOB Abdomen: Still some mild abdominal discomfort recovering from his surgery but generally better. Musculoskeletal: no back pain, his history of but not any currently Skin: Healing incision without dehiscence Neuro: no headache Constitutional: no fever : no urinary symptoms A comprehensive 10 point review of systems is otherwise negative aside from elements mentioned in the history of present illness. PAST MEDICAL HISTORY: Includes hyperlipidemia, atrial fibrillation, spinal stenosis, chronic kidney disease, ventral hernia repair. Bladder cancer. Currently anticoagulated on warfarin. Hip replacement and knee replacement. Social history: Patient is here with his General Appearance: Alert and conversant, cooperative. Eyes: No scleral icterus. ENT, Mouth: Normal mucous membranes. Respiratory: Normal respiratory effort, breath sounds equal, lungs are clear to auscultation. Cardiovascular: Irregularly irregular tachycardic. Gastrointestinal: Abdomen is soft and non tender. Neurological: Alert and oriented x3. Normally conversant. Face symmetric, normal movement and sensation in all extremities. Skin: Warm and dry, no rashes. Musculoskeletal: LLE edema greater than right; compartments soft. Psychiatric: Not agitated. Emergency Department course/MDM: Patient had diltiazem ordered initially but converted spontaneously in the emergency department. 1735: Results discussed with the patient and his , he still feels bad and is not comfortable going home, plan for admission for telemetry cardiac monitoring. We still having trouble getting labs, additional blood draws in progress. INR 2.34, K 4.3, creat 1.7, troponin pending. Smoking Status: Former smoker Constitutional: Initial Vital Signs Temperature (C) 36.5 C 05/03/17 15:42 Heart Rate 156 H 05/03/17 15:42 Respiratory Rate 22 H 05/03/17 15:42 Blood Pressure 106/83 H 05/03/17 15:42 O2 Sat (%) 93 05/03/17 15:42 O2 Delivery Mode Nasal Cannula O2 (L/minute) 2 Allergies/Adverse Reactions: morphine [Morphine] Allergy (Intermediate, Verified 05/03/17 15:40) IV MORPHINE MAKES HIM DIZZY NSAIDS (Non-Steroidal Anti-Inflamma Allergy (Verified 05/03/17 15:40) Other-Enter Comments Home Medications: Medication Instructions Recorded Atorvastatin Calcium [Lipitor 20 20 mg PO DAILY 04/29/16 mg (*)] Omeprazole [Prilosec 20 mg] 20 mg PO Q2D 11/12/16 Aspirin [Aspirin 81mg (*)] 81 mg PO DAILY 02/08/17 Atenolol [Tenormin 50 mg (*)] 50 mg PO DAILY #0 tab 04/18/17 Furosemide [Lasix 40 MG (*)] 40 mg PO DAILY@05/03/17 Oxymetazoline HCl [Afrin] 1 spray EACHNARE HS PRN 05/03/17 Warfarin Sodium [Coumadin 5MG (*)] 2.5 mg PO SUMOTUWEFRSA@16 05/03/17 Warfarin Sodium [Coumadin 5MG (*)] 5 mg PO TH@16 05/03/17 oxyCODONE/APAP 5/325 [Percocet 1.5 tab PO Q4H PRN 05/03/17 5/325 (*)] Medical Decision Making - Diagnostics EKG Interpretation: 12-lead EKG interpreted by me; official reading is in trace master. My interpretation is atrial flutter rate 133 without ischemic changes. EKG 2.:12-lead EKG interpreted by me; official reading is in trace master. My interpretation is sinus rhythm, late anterior RS transition. EKG 3.:12-lead EKG interpreted by me; official reading is in trace master. My interpretation is sinus rhythm rate 81 with nonspecific T-wave flattening. Imaging Results: chest xray shows left atelectasis and effusion Imaging: I viewed and interpreted images myself Differential Diagnosis: Differential diagnosis considered for narrow complex tachycardia including but not limited to various causes of sinus tachycardia, SVT, atrial flutter and atrial fibrillation. Consult/Admit Bed Type: [facility] 1700, admit and cardiovert in AM, [place] 1839 - Data Points Laboratory Results: 05/03/17 18:20 POC Hgb 14.3 gm/dL gm/dL (13.7-17.5) POC Hct 42 % % (40-51) POC Sodium 136 mEq/L mEq/L (134-144) POC Potassium 4.3 mEq/L mEq/L (3.3-5.0) POC Chloride 104 mEq/L mEq/L (97-110) POC BUN 24 mg/dL H mg/dL (7-23) POC Creatinine 1.7 mg/dL H mg/dL (0.7-1.3) POC Glucose 105 mg/dL H mg/dL (70-100) Medications Given: Discontinued Medications Diltiazem HCl (Cardizem 25 Mg/5 Ml Vial) 10 mg IVP ONCE ONE Stop: 05/04/17 01:16 Last Admin: 05/04/17 01:24 Dose: 10 mg Diltiazem HCl 125 mg/ Dextrose 125 mls @ 0 mls/hr IV EDNOW ONE; As Directed PRN Reason: Protocol Stop: 05/03/17 17:22 Last Admin: 05/03/17 17:30 Dose: Not Given Point of Care Test Results: 05/03/17 18:20 POC Sodium 136 POC Potassium 4.3 POC Chloride 104 POC BUN 24 H POC Creatinine 1.7 H POC Glucose 105 H Departure - Departure Disposition: [facility] Inpatient Acute Clinical Impression: Atrial flutter Qualifiers: Atrial flutter type: unspecified Qualified Code(s): I48.92 - Unspecified atrial flutter Condition: Good
--- NOTE | 2017-05-03 16:44 | CPEKG ---
Heart Rate: 133 RR Interval: 451 QRSD Interval: 86 QT Interval: 328 QTC Interval: 488 QRS [place]: 27 T Wave [place]: -3 EKG Severity - ABNORMAL ECG - EKG Impression: ATRIAL FLUTTER, A-RATE 319 EKG Impression: RUN OF VENTRICULAR PREMATURE COMPLEXES EKG Impression: NONSPECIFIC T ABNORMALITIES, INFERIOR LEADS EKG Impression: BORDERLINE PROLONGED QT INTERVAL Electronically Signed By: Cooper Wiggins 03-May-2017 18:50:20
[2017-05-03] MEDS ORDERED: DILTIAZEM 125 MG in D5W 125 ML IV ONE (17:21)
--- NOTE | 2017-05-03 17:59 | CPEKG ---
Heart Rate: 82 RR Interval: 732 P-R Interval: 164 QRSD Interval: 88 QT Interval: 372 QTC Interval: 435 P [place]: 42 QRS [place]: 5 T Wave [place]: 6 EKG Severity - BORDERLINE ECG - EKG Impression: SINUS RHYTHM EKG Impression: BORDERLINE R WAVE PROGRESSION, ANTERIOR LEADS Electronically Signed By: Cooper Wiggins 03-May-2017 18:50:14
[2017-05-03] MEDS ORDERED: ALTEPLASE 2 MG VIAL IVP PRN (18:54)
[2017-05-03 19:15] LABS: INR 2.34 (0.83-1.16); PROTIME(PATIENT) 25.9 SEC (12.0-15.0)
--- NOTE | 2017-05-03 19:19 | CPEKG ---
Heart Rate: 81 RR Interval: 741 P-R Interval: 176 QRSD Interval: 90 QT Interval: 400 QTC Interval: 465 P [place]: 38 QRS [place]: -3 T Wave [place]: -11 EKG Severity - BORDERLINE ECG - EKG Impression: SINUS RHYTHM EKG Impression: BORDERLINE R WAVE PROGRESSION, ANTERIOR LEADS EKG Impression: BORDERLINE T ABNORMALITIES, DIFFUSE LEADS Electronically Signed By: Cooper Wiggins 03-May-2017 20:33:04
[2017-05-03 22:11] LABS: % IMMATURE GRANULYOCYTES 1.1 % (0.0-1.1); ABSOLUTE IMMATURE GRANULOCYTES 0.16 10^3/uL (0.00-0.10); ADD DIFF? NO; ADD MORPH? NO; ADD SCAN? NO; ATYPICAL LYMPHOCYTE FLAG 10 (0-99); FRAGMENT RBC FLAG 0 (0-99); HEMATOCRIT 31.3 % (40.0-51.0); LEFT SHIFT FLG 10 (0-99); LIPEMIA HEMOLYSIS FLAG 80 (0-99); MEAN CELL HEMOGLOBIN 33.4 pg (27.9-34.1); MEAN CELL HEMOGLOBIN CONCENTR. 31.9 g/dL (32.4-36.7); MEAN CELL VOLUME 104.7 fL (81.5-99.8); MEAN PLATELET VOLUME 8.7 fL (8.7-11.7); PLATELET CLUMPS FLAG 20 (0-99); PLATELET COUNT 588 10^3/uL (150-400); RED BLOOD CELL COUNT 2.99 10^6/uL (4.40-6.38); RED CELL DISTRIBUTION WIDTH 14.6 % (11.5-15.2)
[2017-05-03] MEDS ORDERED: OXYMETAZOLINE 30 ML NASAL SPRAY EACHNARE PRN (22:25)
[2017-05-03] MEDS ORDERED: ONDANSETRON DISINTEGRATING 4 MG TAB PO PRN (22:28)
[2017-05-03] MEDS ORDERED: ONDANSETRON 4 MG/2 ML VIAL IVP PRN (22:28)
[2017-05-03 22:34] LABS: ANION GAP 12 mEq/L (8-16); CALCIUM 9.2 mg/dL (8.5-10.4); CARBON DIOXIDE 22 mEq/l (22-31); CHLORIDE 103 mEq/L (97-110); CREATININE 1.7 mg/dL (0.7-1.3); GLOMERULAR FILTRATION RATE 40; GLUCOSE 100 mg/dL (70-100); POTASSIUM 4.7 mEq/L (3.5-5.2); SODIUM 137 mEq/L (134-144)
[2017-05-03 22:45] LABS: TROPONIN I < 0.012 ng/mL (0-0.034)
[2017-05-03] MEDS: OXYCODONE/APAP 5/325 TAB PO PRN (23:01)
--- NOTE | 2017-05-04 00:22 | GHP ---
[f rep st] HISTORY AND PHYSICAL DATE OF ADMISSION: 05/03/2017 CHIEF COMPLAINT: Rapid heart rate. HISTORY OF PRESENT ILLNESS: The patient is a 72-year-old male with a history of paroxysmal atrial fibrillation, hypertension, chronic kidney disease, and bladder cancer, status post cystectomy with a urostomy and ileal conduit who presents to the emergency department reporting a rapid heart rate. He was recently admitted to the hospital on April 05 of this year and underwent a ventral hernia repair. His postop course was complicated by rapid AFib for which he underwent cardioversion on April 16, 2017. He was treated with IV amiodarone and transitioned to oral amiodarone. He states he was instructed about 2 days ago to stop his oral amiodarone. He then woke up this morning, and when he checked his vital signs, he found his heart rate to be in the 150s. He denied feeling any palpitations or other symptoms. He denies chest pain or shortness of breath. No headache, vision changes, nausea, vomiting, or diarrhea. He does report decreased oral intake since his surgery. He is followed by Dr. Bentley for chronic kidney disease. Upon arrival to the emergency department, patient was found to be in rapid AFib with a heart rate in the 150s. He was started on IV diltiazem drip. He then spontaneously converted to normal sinus rhythm and is currently resting comfortably in normal sinus rhythm with a heart rate in the 80s. PAST MEDICAL AND SURGICAL HISTORY: 1. Paroxysmal atrial fibrillation. 2. Chronic kidney disease with a baseline creatinine around 1.7, required dialysis for post-op ATN in 2016. 3. Status post ventral hernia repair, April 05, 2017. 4. History of bladder cancer, status post cystectomy with urostomy and ileal conduit. 5. A history of parastomal hernia resulting in bowel obstruction requiring surgery in 2016. 6. Hypertension. 7. GERD. 8. Right hip surgery. 9. History of lumbar spine surgery. MEDICATIONS: Please see Yingying Licai for complete updated outpatient medication list. ALLERGIES: Morphine, NSAIDs. FAMILY HISTORY: Reviewed and noncontributory. SOCIAL HISTORY: The patient is . 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 He denies tobacco use. He reports occasional alcohol use, though none recently. REVIEW OF SYSTEMS: A 10-point review of systems is performed and is negative except as per HPI. OBJECTIVE: VITAL SIGNS: Temperature is 36.5, blood pressure 126/83, heart rate 83, respiratory rate 16. He is 96% on 2 L. GENERAL: The patient is awake , alert, and oriented, in no acute distress. HEENT: Head is atraumatic, normocephalic. Pupils are equal, round, and reactive to light. Extraocular muscles are intact. Oropharynx is clear. Mucous membranes are moist. NECK: Supple. There is no JVD. HEART: Regular rate and rhythm without murmur. LUNGS: Clear to auscultation bilaterally. ABDOMEN: Soft, nondistended, nontender. His midline incision is healing well without erythema or drainage. His ostomy site appears healthy and functioning normally. EXTREMITIES: Left lower extremity edema which is asymmetric. NEUROLOGIC: Grossly nonfocal. LABORATORY DATA: CBC reveals a white blood cell count of 14.3, 76% neutrophils. Hemoglobin is 10, platelets 588. INR is 2.34. Basic metabolic panel reveals normal electrolytes, BUN slightly elevated at 25, creatinine 1.7. Blood sugar is 100. Troponin is negative. EKG on arrival to the emergency department, personally reviewed and interpreted , shows atrial flutter with a rapid ventricular rate in the 130s. A repeat EKG shows normal sinus rhythm with a rate of 82, T-wave inversions in lead III, otherwise no ST-segment changes concerning for acute ischemia. A 3rd EKG was performed which, again, shows normal sinus rhythm without obvious ST-segment changes concerning for ischemia. ASSESSMENT/PLAN: The patient is a 72-year-old male with a history of paroxysmal atrial fibrillation, chronic kidney disease, bladder cancer, and recent ventral hernia repair who presents to the emergency department with a rapid atrial fibrillation. 1. Paroxysmal atrial fibrillation. The patient presented in rapid AFib. He was started on IV diltiazem drip, though spontaneously converted to normal sinus rhythm. He is currently asymptomatic, in sinus rhythm with a heart rate in the 80s. His initial troponin is negative. There is no evidence of heart failure. He is admitted to the telemetry for cardiac monitoring. Will repeat a troponin in the morning. Of note, he recently stopped amiodarone 2 days ago. Cardiology will see him in the morning. I will keep him n.p.o. at midnight in case he has recurrent AFib and requires cardioversion. Will continue his atenolol for rate control. He is also on Coumadin, and his INR is therapeutic. We will continue his current outpatient dose. UPDATE: Pt went back into a fib during the night, back on diltiazem drip. 2. Hypertension. His blood pressure is currently well controlled. We will continue his outpatient medications. 3. Chronic kidney disease. His creatinine appears to be near his baseline. He does appear a bit dry, and thus I will hold his Lasix tonight. 4. Status post ventral hernia repair, April 05, 2017. He states his bowels are moving. His abdominal exam is benign. 5. Leukocytosis. There are no obvious infectious symptoms. This could be a stress reaction in the setting of rapid AFib. We will closely monitor his vital signs and repeat a CBC in the morning. 6. Left lower extremity edema. This is asymmetric edema. Given his recent surgery, we will obtain a Doppler study to rule out a DVT though he is therapeutic on Coumadin. 7. History of bladder cancer, status post cystectomy with urostomy and ileal conduit. This all seems to be functioning appropriately. CODE STATUS: Patient is full code. DISPOSITION: Patient admitted to observation status. If he maintains normal sinus rhythm, he will likely be a candidate for discharge in the morning. He is followed by home health care which should be continued. /[id number]/MODL MTDD
[2017-05-04] MEDS ORDERED: DILTIAZEM 125 MG in D5W 125 ML IV SCH (01:15)
[2017-05-04] MEDS ORDERED: DILTIAZEM 25 MG/5 ML VIAL IVP ONE (01:15)
[2017-05-04 05:08] LABS: ABSOLUTE IMMATURE GRANULOCYTES 0.11 10^3/uL (0.00-0.10); ADD DIFF? NO; ADD MORPH? NO; ADD SCAN? NO; ATYPICAL LYMPHOCYTE FLAG 10 (0-99); FRAGMENT RBC FLAG 0 (0-99); HEMATOCRIT 26.4 % (40.0-51.0); HEMOGLOBIN 8.2 g/dL (13.7-17.5); LEFT SHIFT FLG 10 (0-99); LIPEMIA HEMOLYSIS FLAG 80 (0-99); MEAN CELL HEMOGLOBIN 32.7 pg (27.9-34.1); MEAN CELL HEMOGLOBIN CONCENTR. 31.1 g/dL (32.4-36.7); MEAN CELL VOLUME 105.2 fL (81.5-99.8); MEAN PLATELET VOLUME 8.8 fL (8.7-11.7); PLATELET CLUMPS FLAG 10 (0-99); PLATELET COUNT 461 10^3/uL (150-400); RED BLOOD CELL COUNT 2.51 10^6/uL (4.40-6.38); RED CELL DISTRIBUTION WIDTH 14.7 % (11.5-15.2)
[2017-05-04] MEDS: OXYCODONE/APAP 5/325 TAB PO PRN (08:58)
[2017-05-04] MEDS ORDERED: ATORVASTATIN CALCIUM 20 MG TAB PO SCH (09:00)
[2017-05-04] MEDS ORDERED: ATENOLOL 50 MG TAB PO SCH (09:00)
[2017-05-04] MEDS ORDERED: ASPIRIN 81 MG CHEWABLE TAB PO SCH (09:00)
--- NOTE | 2017-05-04 10:38 | SOAPPROG ---
DUSTY Progress Note Assessment/Plan: Assessment: Full cardiology consultation performed and dictated. 72 y/o man with bladder cancer and lots of abdominal surgeries. From cardiac standpoint paroxysmal afib and aflutter. Yesterday, asymptomatic aflutter at 136bpm. Given IV dilt and converted to NSR. Had been on Amiodarone but told to stop a week ago. Cardiolite 06/17 LVEF 57% with no ischemia. TTE 07/22 showed LVEF 60% with diastolic dysfunction, mild-moderate AI and mild MR. CECILIA/CV done showed no ROSLYN clot and CV'd to NSR. REC: 1)restart Amiodarone 200mg PO BID 2)labs now: TSH and free T4 leve 3)okay to discharge home today 4)will call pt saturday and have him see [place] or Wilian in 2-3 wks to titrate down Amiodarone to 200mg daily and discuss future management of atrial arrhythmias. Thanks. 05/04/17 10:34 Objective: Vital Signs Temp Pulse Resp BP Pulse Ox 36.6 C 66 16 109/68 96 05/04/17 07:16 05/04/17 07:16 05/04/17 07:16 05/04/17 07:16 05/04/17 07:16 Laboratory Results 05/04/17 04:50 05/03/17 21:50 05/03/17 05/04/17 05/05/17 05:59 05:59 05:59 Intake Total 222 Output Total 200 Balance 22 PT 25.9 SEC (12.0-15.0) H 05/03/17 18:55 INR 2.34 (0.83-1.16) H 05/03/17 18:55 ICD10 Worksheet Patient Problems: Problems Problem Status Onset Atrial flutter Acute Primary localized osteoarthritis of right knee Acute History of primary bladder cancer Chronic Parastomal hernia of ileal conduit Chronic
[2017-05-04] MEDS ORDERED: AMIODARONE HCL 200 MG TAB PO SCH (10:45)
[2017-05-04 10:49] VITALS: BP 100/59; PULSE 72; RESP 24; TEMP 98.9; O2SAT 98
--- NOTE | 2017-05-04 12:29 | HOSPPROG ---
Hospitalist Progress Note Assessment/Plan: #Atrial fib: NSR. Start amio 200mg bID INR at goal. Watch closely with Amio, this was discussed with patient #HTN: at goal #Recent hernia repair: stable #Bladder cancer: stable Please see DC summary for full details. Dc today Subjective: no cp or sob Objective: Vital Signs Temp Pulse Resp BP Pulse Ox 37.2 C 72 24 H 100/59 L 98 05/04/17 10:48 05/04/17 10:48 05/04/17 10:48 05/04/17 10:48 05/04/17 10:48 Laboratory Results 05/04/17 04:50 05/03/17 21:50 05/03/17 05/04/17 05/05/17 05:59 05:59 05:59 Intake Total 222 Output Total 200 Balance 22 PT 25.9 SEC (12.0-15.0) H 05/03/17 18:55 INR 2.34 (0.83-1.16) H 05/03/17 18:55 - Physical Exam Constitutional: no apparent distress Eyes: PERRL Ears, Nose, Mouth, Throat: moist mucous membranes Cardiovascular: regular rate and rhythym, edema (+2-3 left ankle edema, +1 right leg) Respiratory: no respiratory distress, no rales or rhonchi Gastrointestinal: normoactive bowel sounds Genitourinary: no bladder fullness Skin: warm Musculoskeletal: full muscle strength Neurologic: AAOx3 Psychiatric: interacting appropriately ICD10 Worksheet Patient Problems: Problems Problem Status Onset Atrial flutter Acute Primary localized osteoarthritis of right knee Acute History of primary bladder cancer Chronic Parastomal hernia of ileal conduit Chronic
--- NOTE | 2017-05-04 12:33 | GCON ---
[f rep st] CONSULTATION CARDIOLOGY CONSULTATION DATE OF CONSULTATION: 05/04/2017 REASON FOR CONSULTATION: Paroxysmal atrial flutter and atrial fibrillation. HISTORY OF PRESENT ILLNESS: The patient is a 72-year-old gentleman with a history of bladder cancer and multiple abdominal surgeries for hernia and adhesions. From a heart standpoint, he has had par oxysmal atrial fibrillation and then just recently paroxysmal atrial flutter. He had a Cardiolite s tress test in June of 2011, demonstrated an LVEF of 57%, with no ischemia. A transthoracic ech o in July of 2016, demonstrated an LVEF of 60%, with diastolic dysfunction and mild to moderate a ortic insufficiency, with mild tricuspid and mitral insufficiency. Lastly, he had a successful CECILIA cardioversion in March of 2017, demonstrating no cardiac clot and restored sinus rhythm. He was on a miodarone 200 b.i.d., but then was instructed by his refrigeration operator to stop that about a week ago. Ye sterday, at home, he took his vital signs, and noticed his heart rate going at 136 beats per minute, but was relatively asymptomatic. He came to the emergency room, and was found to be in atrial flut ter at a fast rate. An IV was put in, and he was given IV diltiazem and converted to sinus rhythm. Today, he is back to his normal self, reporting no chest pain, palpitations, shortness of breath, o r near-syncope. He reports no TIA symptoms. Of note, he did have a history of hypothyroidism in past. PAST MEDICAL HISTORY: Paroxysmal atrial arrhythmias, bladder cancer, hyperlipidemia, chronic renal insufficiency with a creatinine of 1.7, and multiple abdominal surgeries. PAST SURGICAL HISTORY: Bladder resection, hip replacement, knee replacement, and multiple abdominal adhesion removals. MEDICATIONS: Aspirin 81 mg per day, atenolol 50 mg per day, Lipitor 20 mg per day, Coumadin and Pro tonix. The rest of medications are noncardiac. ALLERGIES: No known drug allergies. SOCIAL HISTORY: The patient denies tobacco or alcohol use. FAMILY HISTORY: Unremarkable for premature coronary artery disease. REVIEW OF SYSTEMS: The patient reports no recent fevers, chills, abdominal pain, or GI bleed sympto ms, such as hematemesis, melena, or bright red blood per rectum. Rest of 10-point review of systems is negative. PHYSICAL EXAM: VITAL SIGNS: Afebrile, pulse 66 and regular, blood pressure 109/68, respirations 17 , weight 108.8 kg. GENERAL: A moderately obese gentleman, in no acute distress without chest pain or using accessory respiratory muscles. EYES: Pupils equal and reactive to light. ENT: Oral mucosa, with no cyanosis. NECK: Jugular venous pressure to 7 cm. Carotid pulses 2+ bilaterally, with no obvious bruits. JEAN CLAUDE GS: Clear to auscultation bilaterally without rales, rhonchi, or wheezing. HEART: Normal PMI. Re gular rate and rhythm with 1/6 nonradiating systolic murmur, and no S3. ABDOMINAL: Soft, and nonte nder. Bowel sounds heard. No guarding or rebound. EXTREMITIES: 2+ peripheral pulses including fe moral and pedal pulses. Trace pretibial edema. MUSCULOSKELETAL: No scoliosis, no nuchal rigidity. SKIN: No bleeding or cyanosis. LABS: White count 10.8, hematocrit 26, platelets 461,000. MCV 105. INR 2.34. Sodium 137, potassiu m 4.7, chloride 25, BUN 1.7. Troponin negative x2. IMPRESSION: A 72-year-old gentleman with previous bladder cancer and multiple abdominal surgeries, with paroxysmal atrial fibrillation and atrial flutter, and normal LV function. Currently he is andra k in normal sinus rhythm. I think he is at high risk for recurrent atrial arrhythmias, unless he is on an antiarrhythmic. He does not appear to be in heart failure, or volume overload, or angina. RECOMMENDATIONS: 1. Would restart amiodarone 200 mg p.o. b.i.d. 2. We will get labs today in the hospital, including a TSH, and free T3, and T4 levels. 3. I feel that he could be discharged home later this afternoon, on rest of medications without karthikeyan nge. 4. We will set him up for a new EP consult with Dr. Hay or Dr. Cedeno in 2-3 weeks, to titrate down h is amiodarone to 200 mg daily and discuss future management of his atrial arrhythmias. /[id number]/MODL
[2017-05-04] MEDS ORDERED: WARFARIN SODIUM 5 MG TAB PO SCH (16:00)
--- NOTE | 2017-05-04 22:40 | GDS ---
[f rep st] DISCHARGE SUMMARY DISCHARGE DIAGNOSES: 1. Paroxysmal atrial fibrillation. 2. Chronic kidney disease, baseline creatinine 1.7. 3. Status post ventral hernia repair, March 2017. 4. History of bladder cancer, status post cystectomy with urostomy and ileal conduit. 5. History of a parastomal hernia resulting in bowel obstruction with surgery in 2016. 6. Hypertension. 7. Gastroesophageal reflux disease. 8. Right hip surgery. HISTORY OF PRESENT ILLNESS: The patient is a 72-year-old male with history of paroxysmal atrial fibrillation, hypertension, chronic kidney disease, bladder cancer, who presents to the emergency room reporting a rapid heart rate. He was admitted to the hospital April 05, 2017, for ventral hernia repair. This hospitalization was complicated by rapid AFib, for which he underwent cardioversion April 16, 2017. He was treated with IV amiodarone and transitioned to oral. He was instructed 2 days ago by his taker off to stop this medication. On the day of admission, he awoke, checked his vital signs and found his heart rate to be in the 150s. He denies any palpitations or other symptoms. No chest pain. No shortness of breath. No headache. In the emergency room, he was found to be in rapid AFib with heart rate in 150s and started on IV diltiazem. He spontaneously converted to normal sinus rhythm. HOSPITAL COURSE BY PROBLEM: 1. Paroxysmal atrial fibrillation: Converted quickly with IV diltiazem. His troponins were negative. No evidence of volume overload. Appreciate Cardiology consult. We will restart amiodarone at [address] Cabrera will call patient to arrange followup with EP. We will monitor TSH, pulmonary functions closely. 2. His INR is therapeutic. Will need to monitor with amiodarone. Recommend repeat on Saturday or Saturday. 3. Hypertension. Continue home medications. 4. CKD. Baseline creatinine 1.7. 5. Status post ventral hernia repair in March 2017. 6. Leukocytosis, resolved. May have been stress response. 7. Left lower extremity edema: Negative DVT. 8. History of bladder cancer: Status post cystectomy and urostomy and ileal conduit. DISPOSITION: Patient is stable for discharge. NEW MEDICATIONS: Amiodarone 200 mg b.i.d. FOLLOWUP: 1. Dr. Cabrera. Will refer to EP Clinic. 2. INR Saturday or Saturday. 3. Stock Letterer as scheduled. Greater than 35 min spent on counseling pt on meds and coordinating discharge /[id number]/MODL MTDD
[2017-05-05] MEDS ORDERED: PANTOPRAZOLE SODIUM 40 MG TAB PO SCH (09:00)
[2017-05-09] MEDS ORDERED: WARFARIN SODIUM 5 MG TAB PO SCH (16:00)
== END 2017-05-04 15:15 | disposition home or self-care (01) ==
LOC: F2W 21:23
PROVIDERS: ADMIT Internal Medicine; ATTEND Internal Medicine
PROC: 02HV33Z Insertion of Infusion Device into Superior Vena Cava, Percutaneous Approach (ICD-10-PCS; principal; 2017-05-03)
PROC: 3E033RZ Introduction of Antiarrhythmic into Peripheral Vein, Percutaneous Approach (ICD-10-PCS; 2017-05-03)
DX: I48.0 Paroxysmal atrial fibrillation (principal); Z79.01 Long term (current) use of anticoagulants; R60.9 Edema, unspecified; E78.5 Hyperlipidemia, unspecified; N18.9 Chronic kidney disease, unspecified; I12.9 Hypertensive chronic kidney disease with stage 1 through stage 4 chronic kidney disease, or unspecified chronic kidney disease; Z85.51 Personal history of malignant neoplasm of bladder; Z96.649 Presence of unspecified artificial hip joint; Z96.659 Presence of unspecified artificial knee joint
CPT/HCPCS: 36569; 71020; 77001; 93005; 93971; 99285; C1751; G0378; 82947-QW; 84481-90

== ENCOUNTER 2017-05-12 16:04 | Emergency (ER) | payer OTHER, MEDICARE ==
[2017-05-12 16:11] VITALS: BP 121/93; TEMP 98.4
--- NOTE | 2017-05-12 17:07 | EDPHY ---
HPI/HX/ROS/PE/MDM Narrative: CHIEF COMPLAINT: Surgical site check HPI: This patient is anticoagulated 72 year old male arriving with his complaining of bloody drainage from his hernia repair site onset yesterday evening. He had ventral hernia repair 04/05/[address] Palencia. He was seen here last week for atrial fibrillation and received a new medication at that time which resolved his symptoms. He had two drains placed for his post-operative recovery, and had one removed recently. He believes the site may have become plugged. Yesterday evening, he noted a large amount of blood collecting in his dressings. This morning, his home care nurse told him she could feel a "blood pocket" and recommended he present to the emergency department for evaluation. He has followed up with Dr. Palencia as directed. His next appointment is scheduled for 05/23/17. He has not yet contacted Dr. Palencia regarding his current concerns. He denies significant abdominal pain, but states he has been taking 4.5 doses of Percocet daily for postoperative pain management. He denies fever, chills, shortness of breath, vomiting, or other associated symptoms. REVIEW OF SYSTEMS: Aside from elements discussed in the HPI, a comprehensive 10-point review of systems was reviewed and is negative. PMH: Chronic kidney disease, bladder cancer, atrial fibrillation, hypertension, GERD, right hip surgery, lumbar spine surgery, ventral hernia repair Past medical records reviewed including admission from 05/03/18 for atrial fibrillation. SOCIAL HISTORY: . 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 Nonsmoker. Lives in [place] PHYSICAL EXAM: General:Patient is alert, in no acute distress. ENT:Eyes are normal to inspection. ENT inspection normal. Neck: Normal inspection. Full range of motion. Respiratory:No respiratory distress. Breath sounds normal bilaterally. Cardiovascular: Regular rate and rhythm. Strong peripheral pulses. Normal cap refill. Abdomen: Large well-healed midline incision. Inferior aspect two small holes, of which there is active serosanguineous drainage from inferior hole. Tenderness and induration of lower area. There are no peritoneal signs. There are normal bowel sounds. Back: Normal to inspection. No tenderness to palpation. Skin: Normal color. No rash. Warm and dry. Extremities: Normal appearance. Full range of motion. Neuro: Oriented x3. Normal motor function. Normal sensory function. Portions of this note were transcribed by an ED scribe. I personally performed the history, physical exam, and medical decision making; and confirm the accuracy of the information in the transcribed note. ED Course: 72 year old male presents with serosanguineous drainage from a drain site post ventral hernia repair. Plan for labs including CBC, BMP, PTPTT. Plan to consult with the patient's surgeon, Dr. Palencia. Unable to establish IV or draw blood from patient. Will continue to attempt access. 17:[address] Palencia, general surgeon. He is comfortable having this patient follow up in an outpatient setting tomorrow. He will see the patient in his office tomorrow. Plan to discharge patient home pending lab results. 18:05 Lab results consistent with patient's baseline. Plan to discharge home in good condition. He will follow up with Dr. Palencia tomorrow. Return precautions discussed. The patient is comfortable with this plan. MDM: This patient presents with serosanguinous drainage from his abdominal incision. I consulted Dr. Palencia who knows the patient very well, and described my physical exam findings. Dr. Palencia recommends discharge home and he will see the patient in the office tomorrow. I offered this plan to the patient and he is comfortable with it. After numerous attempts, we were finally able to get blood on this patient - this shows baseline Hct, creatinine and a therapeutic INR. I see no signs of abscess, cellulitis, active hemorrhage or sepsis. I discussed strict return precautions with the patient. - Data Points Laboratory Results: Laboratory Results 05/12/17 17:45 05/12/17 17:45 05/12/17 05/12/17 05/12/17 17:45 17:45 17:45 WBC 12.92 10^3/uL H 10^3/uL (3.80-9.50) RBC 2.84 10^6/uL L 10^6/uL (4.40-6.38) Hgb 9.5 g/dL L g/dL (13.7-17.5) Hct 29.8 % L % (40.0-51.0) MCV 104.9 fL H fL (81.5-99.8) MCH 33.5 pg pg (27.9-34.1) MCHC 31.9 g/dL L g/dL (32.4-36.7) RDW 15.0 % % (11.5-15.2) Plt Count 484 10^3/uL H 10^3/uL (150-400) MPV 8.6 fL L fL (8.7-11.7) Neut % (Auto) 78.1 % H % (39.3-74.2) Lymph % (Auto) 9.3 % L % (15.0-45.0) [place] % (Auto) 9.4 % % (4.5-13.0) Eos % (Auto) 2.2 % % (0.6-7.6) Baso % (Auto) 0.5 % % (0.3-1.7) Nucleat RBC Rel Count 0.0 % % (0.0-0.2) Absolute Neuts (auto) 10.09 10^3/uL H 10^3/uL (1.70-6.50) Absolute Lymphs (auto) 1.20 10^3/uL 10^3/uL (1.00-3.00) Absolute Monos (auto) 1.22 10^3/uL H 10^3/uL (0.30-0.80) Absolute Eos (auto) 0.28 10^3/uL 10^3/uL (0.03-0.40) Absolute Basos (auto) 0.06 10^3/uL 10^3/uL (0.02-0.10) Absolute Nucleated RBC 0.00 10^3/uL 10^3/uL (0-0.01) Immature Gran % 0.5 % % (0.0-1.1) Immature Gran # 0.07 10^3/uL 10^3/uL (0.00-0.10) PT 27.8 SEC H SEC (12.0-15.0) INR 2.56 H (0.83-1.16) APTT 54.9 SEC H SEC (23.0-38.0) Sodium 134 mEq/L mEq/L (134-144) Potassium 4.2 mEq/L mEq/L (3.5-5.2) Chloride 97 mEq/L mEq/L (97-110) Carbon Dioxide 27 mEq/l mEq/l (22-31) Anion Gap 10 mEq/L mEq/L (8-16) BUN 26 mg/dL H mg/dL (7-23) Creatinine 1.7 mg/dL H mg/dL (0.7-1.3) Estimated GFR 40 Glucose 89 mg/dL mg/dL (70-100) Calcium 8.8 mg/dL mg/dL (8.5-10.4) General Time Seen by Provider: 05/12/17 16:19 Initial Vital Signs: Initial Vital Signs Temperature (C) 36.9 C 05/12/17 16:05 Heart Rate 79 05/12/17 16:05 Respiratory Rate 18 05/12/17 16:05 Blood Pressure 121/93 H 05/12/17 16:05 O2 Sat (%) 91 L 05/12/17 16:05 O2 Delivery Mode Room Air Allergies/Adverse Reactions: morphine [Morphine] Allergy (Intermediate, Verified 05/03/17 15:40) IV MORPHINE MAKES HIM DIZZY NSAIDS (Non-Steroidal Anti-Inflamma Allergy (Verified 05/03/17 15:40) Other-Enter Comments Home Medications: Medication Instructions Recorded Atorvastatin Calcium [Lipitor 20 20 mg PO DAILY 04/29/16 mg (*)] Omeprazole [Prilosec 20 mg] 20 mg PO Q2D 11/12/16 Aspirin [Aspirin 81mg (*)] 81 mg PO DAILY 02/08/17 Atenolol [Tenormin 50 mg (*)] 50 mg PO DAILY #0 tab 04/18/17 Furosemide [Lasix 40 MG (*)] 40 mg PO DAILY@05/03/17 Oxymetazoline HCl [Afrin] 1 spray EACHNARE HS PRN 05/03/17 Warfarin Sodium [Coumadin 5MG (*)] 2.5 mg PO SUMOTUWEFRSA@05/03/17 Warfarin Sodium [Coumadin 5MG (*)] 5 mg PO TH@05/03/17 oxyCODONE/APAP 5/325 [Percocet 1.5 tab PO Q4H PRN 05/03/17 5/325 (*)] Amiodarone HCl [Pacerone (*)] 200 mg PO BID #60 tab 05/04/17 Departure - Departure Disposition: Home, Routine, Self-Care Clinical Impression: Abdominal wall seroma Qualifiers: Encounter type: initial encounter Qualified Code(s): T88.8XXA - Other specified complications of surgical and medical care, not elsewhere classified, initial encounter Condition: Good Additional Instructions: 1. Follow up with Dr. Palencia tomorrow without fail. He will see you in the office tomorrow. 2. Return to the emergency department for increased abdominal pain, fever, vomiting, increased redness, heat, brad blood, or purulent drainage from the drain site, or other worsening of condition. Referrals: MARIA DE JESUS FOURNIER [Primary Care Provider] - As per Instructions Darrell Palencia MD [Medical Doctor] - As per Instructions Report Scribed for: Aneudy Guerra Report Scribed by: Jessica Davis Date of Report: 05/12/17 Time of Report: 17:40
[2017-05-12 17:51] LABS: % IMMATURE GRANULYOCYTES 0.5 % (0.0-1.1); ABSOLUTE IMMATURE GRANULOCYTES 0.07 10^3/uL (0.00-0.10); ADD DIFF? NO; ADD MORPH? NO; ADD SCAN? NO; ATYPICAL LYMPHOCYTE FLAG 0 (0-99); FRAGMENT RBC FLAG 0 (0-99); HEMATOCRIT 29.8 % (40.0-51.0); HEMOGLOBIN 9.5 g/dL (13.7-17.5); LEFT SHIFT FLG 0 (0-99); LIPEMIA HEMOLYSIS FLAG 80 (0-99); MEAN CELL HEMOGLOBIN 33.5 pg (27.9-34.1); MEAN CELL HEMOGLOBIN CONCENTR. 31.9 g/dL (32.4-36.7); MEAN CELL VOLUME 104.9 fL (81.5-99.8); MEAN PLATELET VOLUME 8.6 fL (8.7-11.7); PLATELET CLUMPS FLAG 10 (0-99); PLATELET COUNT 484 10^3/uL (150-400); RED BLOOD CELL COUNT 2.84 10^6/uL (4.40-6.38)
[2017-05-12 18:02] LABS: INR 2.56 (0.83-1.16); PROTIME(PATIENT) 27.8 SEC (12.0-15.0)
[2017-05-12 18:03] LABS: ANION GAP 10 mEq/L (8-16); APTT 54.9 SEC (23.0-38.0); CALCIUM 8.8 mg/dL (8.5-10.4); CARBON DIOXIDE 27 mEq/l (22-31); CHLORIDE 97 mEq/L (97-110); CREATININE 1.7 mg/dL (0.7-1.3); GLOMERULAR FILTRATION RATE 40; GLUCOSE 89 mg/dL (70-100); POTASSIUM 4.2 mEq/L (3.5-5.2); SODIUM 134 mEq/L (134-144)
[2017-05-12 18:42] VITALS: PULSE 85; RESP 16; O2SAT 92
== END 2017-05-12 18:38 | disposition home or self-care (01) ==
DX: K91.872 Postprocedural seroma of a digestive system organ or structure following a digestive system procedure (principal); I12.9 Hypertensive chronic kidney disease with stage 1 through stage 4 chronic kidney disease, or unspecified chronic kidney disease; N18.9 Chronic kidney disease, unspecified; Z85.51 Personal history of malignant neoplasm of bladder

== ENCOUNTER → 2017-05-30 | Outpatient (CLI) | payer OTHER, MEDICARE | LOC: BHFA 09:30 | PROVIDERS: ATTEND Internal Medicine Cardiovascular Disease | DX: I48.91 Unspecified atrial fibrillation (principal) ==

== ENCOUNTER → 2017-06-19 | Outpatient (CLI) | payer OTHER, MEDICARE | LOC: BHFA 08:30 | PROVIDERS: ATTEND Internal Medicine Cardiovascular Disease | DX: Z01.810 Encounter for preprocedural cardiovascular examination (principal) | CPT/HCPCS: 78452; 93017; A9500; J2785 ==

== ENCOUNTER → 2017-08-02 | Outpatient (CLI) | payer OTHER, MEDICARE ==
[~2017-08-02] MED LIST changes: -ACETAMINOPHEN 325 MG TAB PO ONE; -CEFAZOLIN 2 GM/DEXTR 100 ML IV ONE; -CHLORHEXIDINE GLUC HIBICLENS 118 ML BTL TP ONE; -DEXAMETHASONE 4 MG/ML VIAL IVP ONE; -FAMOTIDINE 20 MG TAB PO ONE; +GADOBUTROL 10 ML VIAL IVP ONE; -ROPI IU ONE; -SKIN ADHESIVE (DERMABOND) 1 EACH TP ONE; -TRANEXAMIC ACID 3,000 MG in NS 50 ML IRR ONE; -TRANEXAMIC ACID 3,000 MG/50 ML BAG IRR ONE; -VANCOMYCIN 1 GM VIAL IV ONE; -[UNRECOGNIZED DRUG - OTHER] IU ONE
== END ==
LOC: FIMAGING 08:52
PROVIDERS: ATTEND Physician Assistant
DX: M51.34 Other intervertebral disc degeneration, thoracic region (principal); M51.24 Other intervertebral disc displacement, thoracic region; M51.36 Other intervertebral disc degeneration, lumbar region
CPT/HCPCS: 72146; A9585

== ENCOUNTER → 2017-10-22 | Outpatient (CLI) | payer OTHER, MEDICARE | LOC: FIMAGING 09:13 | PROVIDERS: ATTEND Surgery | DX: K21.0 Gastro-esophageal reflux disease with esophagitis (principal); K44.9 Diaphragmatic hernia without obstruction or gangrene ==

== ENCOUNTER 2017-12-17 05:24 | Inpatient (IN) | payer OTHER, MEDICARE ==
[2017-12-17] MEDS ORDERED: ACETAMINOPHEN 500 MG TAB PO ONE (06:09)
[2017-12-17] MEDS ORDERED: ceFAZolin 2 GM/SWFI 2 GM/20 ML SYR IVP ONE (06:09)
[2017-12-17] MEDS ORDERED: GABAPENTIN 300 MG CAP PO ONE (06:09)
[2017-12-17] MEDS ORDERED: NS 500 ML IV ONE (06:13)
[2017-12-17] MEDS ORDERED: LIDOCAINE 1% 2 ML INJ ID PRN (06:13)
[2017-12-17] MEDS ORDERED: CHLORHEXIDINE GLUC HIBICLENS 118 ML BTL TP ONE (06:34)
[2017-12-17] MEDS ORDERED: BUPIVACAINE 0.25% 30 ML SDV ONE ×2 (06:34→06:35)
[2017-12-17] MEDS ORDERED: BACITRACIN 50,000 UNITS/10 ML SYR IRR ONE ×3 (06:35→09:55)
[2017-12-17] MEDS ORDERED: THROMBIN (BOVINE) 5,000 UNIT VIAL TP ONE (06:35)
--- NOTE | 2017-12-17 06:48 | PDANEPAE ---
ANE History of Present Illness 72 year old male for right SI joint fusion. ANE Past Medical History - Cardiovascular History Hx Hypertension: No Hx Arrhythmias: Yes Hx Chest Pain: No Hx Coronary Artery / Peripheral Vascular Disease: No Hx CHF / Valvular Disease: No Hx Palpitations: No Cardiovascular History Comment: A fib - takes Atenolo and amiodorone - Pulmonary History Hx COPD: No Hx Asthma/Reactive Airway Disease: No Hx Recent Upper Respiratory Infection: No Hx Oxygen in Use at Home: No Hx Sleep Apnea: No Sleep Apnea Screening Result - Last Documented: Negative - Neurologic History Hx Cerebrovascular Accident: No Hx Seizures: No Hx Dementia: No - Endocrine History Hx Diabetes: No - Renal History Hx Renal Disorders: Yes Renal History Comment: Ileal conduit-R urostomy bag. kidney failure April- hosp 31 days.[facility] days. currently kidneys functioning - Creat 1.5-1.7 Dr Robert Bentley/[place] [facility].F/U - Liver History Hx Hepatic Disorders: No - Neurological & Psychiatric Hx Hx Neurological and Psychiatric Disorders: Yes Neurological / Psychiatric History Comment: sever spinal stenosis-L5/S1. pain in R hip/buttock, R low spine pain & r hip pain - Cancer History Hx Cancer: No Cancer History Comment: bladder, s/p cystectomy in 2009 - Congenital Disorder History Hx Congenital Disorders: No - GI History Hx Gastrointestinal Disorders: Yes Gastrointestinal History Comment: blockage of intestines April. acid reflux - Other Health History Other Health History: OA L knee - Chronic Pain History Chronic Pain: Yes (low back, right hip) - Surgical History Prior Surgeries: PARASTOMAL HERNIA. R total knee 12-05-16. TURBT cystectomy ( [place]) Dr Bolden,-, Parastomal hernia repair w/mesh 05-03-16, Diaylsis cath placement R I.J. 05-28-16.Bilat knee scopes 2009, R total hip 2004.L5/S1 laminectomies x2 1994,1995. ANE Review of Systems Review of systems is: negative Review of Systems: - Exercise capacity Exercise capacity: >=4 METS METS (RN): 4 METS ANE Patient History - Allergies Allergies/Adverse Reactions: morphine [Morphine] Allergy (Intermediate, Verified 05/03/17 15:40) IV MORPHINE MAKES HIM DIZZY NSAIDS (Non-Steroidal Anti-Inflamma Allergy (Verified 05/03/17 15:40) Other-Enter Comments - Home Medications Home medications: home medication list seen and reviewed Home Medications: Atorvastatin Calcium [Lipitor 20 mg (*)] 20 mg PO DAILY 04/29/16 [Last Taken 1 Day Ago ~12/16/17] Omeprazole [Prilosec 20 mg] 20 mg PO HS 11/12/16 [Last Taken 1 Day Ago ~12/16/17 ] Oxymetazoline HCl [Afrin] 1 spray EACHNARE HS PRN 05/03/17 [Last Taken 1 Day Ago ~12/16/17] Warfarin Sodium [Coumadin 5MG (*)] 2.5 mg PO SUMOWEFRSA@05/03/17 [Last Taken 12/11/17] Warfarin Sodium [Coumadin 5MG (*)] 5 mg PO TUTH@05/03/17 [Last Taken 12/12/17 ] Amiodarone HCl [Pacerone (*)] 200 mg PO HS 11/27/17 [Last Taken 1 Day Ago ~12/16] Atenolol [Tenormin 50 mg (*)] 25 mg PO DAILY 11/27/17 [Last Taken 1 Day Ago ~09/23] Herbals/Supplements -Info Only 1 ea PO DAILY 11/27/17 [Last Taken 1 Month Ago ~ 11/19/17] Levothyroxine [Synthroid 50 mcg (*)] 50 mcg PO DAILY06 11/27/17 [Last Taken 1 Day Ago ~12/16/17] Melatonin [Melatonin 3 MG (*)] 3 mg PO HS 11/27/17 [Last Taken 1 Day Ago ~] - NPO status NPO Status: no food or drink >8 hours - Anes Hx Anes Hx: no prior problems - Smoking Hx Smoking Status: Former smoker Marijuana use: No - Alcohol Use Alcohol Use: None - Family Anes Hx Family Anes Hx: neg - N/A ANE Labs/Vital Signs - Vital Signs Height: 182.88 cm Weight: 108.862 kg ANE Physical Exam - Airway Neck exam: FROM Mallampati Score: Class 2 Mouth exam: normal dental/mouth exam - Pulmonary Pulmonary: no respiratory distress - Cardiovascular Cardiovascular: regular rate and rhythym - ASA Status ASA Status: III ANE Anesthesia Plan Anesthesia Plan: general endotracheal anesthesia Lines/Monitors: arterial line Total IV Anesthesia: No
--- NOTE | 2017-12-17 06:56 | PDHPUP ---
History & Physical Update H&P update statement: This history and physical update is based on an assessment of the patient which was completed after admission or registration (within 24 hours), but prior to the surgery/procedure. H&P update: H&P reviewed & patient examined, no change in patient's condition since H&P completed (All questions answered and consents signed. Patient marked.)
[2017-12-17 07:03] LABS: INR 1.26 (0.83-1.16)
[2017-12-17] MEDS ORDERED: PROPOFOL/EMULSION 500 MG/50 ML BOTTLE IV ONE ×3 (07:14→11:16)
[2017-12-17] MEDS ORDERED: fentaNYL 100 MCG/2 ML INJ ONE ×3 (07:14→13:06)
[2017-12-17] MEDS ORDERED: PROPOFOL 200 MG/20 ML VIAL ONE (07:14)
[2017-12-17] MEDS ORDERED: REMIFENTANIL HCL 1 MG VIAL ONE ×3 (07:14→11:16)
[2017-12-17] MEDS ORDERED: PHENYLEPHRINE HCL 100 MCG/ML SYR ONE (07:19)
[2017-12-17] MEDS ORDERED: THROMBIN (BOVINE) 20,000 UNIT VIAL TP ONE (07:59)
[2017-12-17] MEDS ORDERED: PHENYLEPHRINE 10 MG/ML SDV ONE (08:03)
[2017-12-17] MEDS ORDERED: SURGIFLO MATRIX KIT WITH THROMBIN 8ml TP ONE (08:29)
[2017-12-17] MEDS ORDERED: ALBUMIN 5% 250 ML BOTTLE IV ONE (09:40)
[2017-12-17] MEDS ORDERED: ONDANSETRON 4 MG/2 ML VIAL IVP PRN ×2 (10:48→12:41)
[2017-12-17] MEDS ORDERED: LABETALOL HCL 5 MG/ML 20 ML MDV IVP PRN (10:48)
[2017-12-17] MEDS ORDERED: NALOXONE HCL 0.4 MG/ML INJ IVP PRN (10:48)
[2017-12-17] MEDS ORDERED: epHEDrine SULFATE 10 MG/ML SYR IVP PRN (10:48)
[2017-12-17] MEDS ORDERED: PHENYLEPHRINE HCL 100 MCG/ML SYR IVP PRN (10:48)
[2017-12-17] MEDS ORDERED: NS 500 ML IV PRN (10:48)
[2017-12-17] MEDS ORDERED: ceFAZolin 1 GM VIAL ONE (11:25)
[2017-12-17] MEDS ORDERED: GLYCOPYRROLATE 0.2 MG/1 ML VIAL ONE (11:34)
[2017-12-17] MEDS ORDERED: HYDROmorphONE/DILAUDID 2 MG/ML INJ ONE (12:15)
[2017-12-17] MEDS: HYDROmorphONE/DILAUDID 1 MG/ML INJ IVP PRN ×3 (12:21→13:21)
[2017-12-17] MEDS: fentaNYL 100 MCG/2 ML INJ IVP PRN ×3 (12:21→13:21)
[2017-12-17] MEDS ORDERED: LACTULOSE 20 GM/30 ML UDCUP PO PRN (12:41)
[2017-12-17] MEDS ORDERED: ONDANSETRON DISINTEGRATING 4 MG TAB PO PRN (12:41)
[2017-12-17] MEDS ORDERED: HYDROmorphONE/DILAUDID 2 MG/ML INJ IVP PRN (12:41)
[2017-12-17] MEDS ORDERED: diphenhydrAMINE 25 MG CAP PO PRN (12:41)
[2017-12-17] MEDS ORDERED: POLYETHYLENE GLYCOL 3350 17 GM PKT PO PRN (12:41)
[2017-12-17] MEDS ORDERED: NS W/ 20 KCl/L 1,000 ML IV SCH (12:45)
--- NOTE | 2017-12-17 12:53 | POSTOPPROG ---
Post Op Note Date of Operation: 12/17/17 Surgeon: David Peoples Outdoor Guide: Cecil Sainz PA-C Anesthesiologist: Juan Anesthesia: GET(General Endotracheal) Pre-op Diagnosis: lumbar stenosis, right sacroilitis Post-op Diagnosis: same Indication: nerve compression, pain Procedure: T11-L4 laminectomy, right SI joint fusion Findings: Nerve compression. Please see dictation Inf/Abcess present in the surg proc area at time of surgery?: No Depth: Organ Space EBL: 100-500 Complications: none Drains: Guillermo Le Specimen(s): none PA Addendum - Addendum .: S: Pt awake in PACU, denies pain O: Awake and alert NAD VSS MAEx4 Motor 5/5 BLE with exception of DF on L 4/5 +LT Incisions dressed cdi JPx1 A: 72 yo M s/p T11-L4 laminectomy, right SI joint fusion P: PT/OT To ICU for close monitoring given multiple medical issues Pain management Encourage ambulation TEDs, SCDs, lovenox POD#1 Call NS with any questions D/w Dr Peoples
[2017-12-17] MEDS ORDERED: METHOCARBAMOL 750 MG TAB ONE (13:06)
[2017-12-17] MEDS: METHOCARBAMOL 750 MG TAB PO PRN ×2 (13:08→21:05)
[2017-12-17] MEDS ORDERED: OXYMETAZOLINE 30 ML NASAL SPRAY EACHNARE PRN (13:15)
--- NOTE | 2017-12-17 13:41 | GOP ---
[f rep st] OPERATIVE REPORT DATE OF OPERATION: 12/17/2017 SURGEON: David Peoples MD CONSULTING NETWORKING ENGINEER: Pippa Sainz PA-C. ANESTHESIA: General. PREOPERATIVE DIAGNOSIS: 1. Right-sided sacroiliac dysfunction and sacroiliitis. 2. Severe spinal stenosis T11-T12 and L1 through L4 with lumbar spondylosis. 3. Lower extremity radiculopathy and weakness. POSTOPERATIVE DIAGNOSIS: 1. Right-sided sacroiliac dysfunction and sacroiliitis. 2. Severe spinal stenosis T11-T12 and L1 through L4 with lumbar spondylosis. 3. Lower extremity radiculopathy and weakness. PROCEDURE PERFORMED: 1. Right-sided minimally invasive sacroiliac joint fusion with 2 [employer] fusion devices filled with morselized autograft. 2. Decompressive laminectomy with bilateral medial facetectomies, T11-T12, T12- L1, L1-L2, L2-L3, L3-L4. 3. Use of intraoperative 3D Stealth navigation. 4. Use of intraoperative fluoroscopy, less than 1 hour physician time. 5. Use neuro monitoring. FINDINGS: per imaging SPECIMENS: None. ESTIMATED BLOOD LOSS: 100 mL. INDICATIONS: The patient is a 72-year-old gentleman with very complicated past medical history, including chronic renal failure. He had presented with low back pain, lower extremity claudication and weakness as well as right sided sacroiliac joint dysfunction. We had an extensive conversation about the various surgical options and interventions for the patient, but given his complicated medical history, we opted to proceed forth with surgery which can be completed the most safe for the patient including the decompressions and right-sided SI joint fusion. The patient likely requires a much larger surgery to address all of his problems; however, given greater duration of surgery, possible increased blood loss, and possibility of infection, we felt that this was the best option for him. The original surgical plan was for a T11-T12 and then L1 through L4 laminectomy; however, intraoperatively, I decided that, given the constraints and time for the patient on the table, it would be best to just complete the entire laminectomy from T11 through L4 on the table to ensure that everything was well decompressed. DESCRIPTION OF PROCEDURE: The patient was brought to the operating theater and underwent general endotracheal anesthesia without complications. Venodynes, CONOR hose, and the appropriate lines were placed by Anesthesia. He was flipped prone onto the Guillermo table, and all bony processes inspected and padded. Care was taken to ensure that his stoma from the ostomy bag was also clear from any compression. The thoracolumbar buttock area was then prepped and draped in usual sterile surgical fashion. A time-out was completed per protocol, and the patient received antibiotics within 1 hour of incision. The previous incision in the lumbar midline was infiltrated with Marcaine with epinephrine and taken down through the subcutaneous tissue to the level of the spinous process of L4. We attached the 3D Stealth navigation clamp to the spinous process of L4 and completed a 3D Stealth Navigation spine. Using 3D Stealth navigation, we then picked our entry point that would give us the best approach across the right-sided sacroiliac joint. This was marked as a vertical incision on his right buttock. This was infiltrated with Marcaine with epinephrine. The incision taken down with the scalpel blade. Using monopolar, the incision was taken down through subcutaneous tissues. Using 3D Stealth navigation system, we drilled and tapped 2 holes across the right-sided sacroiliac joint. We then measured and placed a 50 and a 60 mm [employer] screw filled with morselized allograft across the right-sided sacroiliac joint using 3D Stealth navigation system. Another 3D Stealth navigation spin demonstrated excellent placement of the hardware. At this point, we used intraoperative fluoroscopy to aliya out the T11 through L4 levels in the midline. This incision was marked in the midline and infiltrated with Marcaine with epinephrine. The incision was taken down with the scalpel blade and, then using the monopolar, taken down the midline through the lumbodorsal fascia. A subperiosteal dissection was carried to the medial facet joints of T11 through L4. Deep retractors placed to maintain our exposure. Then using a combination of the bur tip on the drill bit, Kerrison punches, and a Leksell rongeur, we completed a decompressive laminectomy with bilateral medial facetectomies, T11-T12, T12-L1, L1-L2, L2-L3, L3-L4. Again, I opted to complete the decompression at the T12-L1 level in the interest of time and blood loss. We confirmed the decompression location using the nerve hooks and fluoroscopy. Once we felt that everything was well decompressed on manual palpation, we obtained hemostasis with the bipolar. The wound was irrigated copiously with bacitracin irrigation and closed in multiple layers using Vicryl sutures in the deep layers and Dermabond for the skin. The patient's wounds were dressed sterilely. He was flipped supine onto the transfer cart, where he was awakened , extubated, and taken to the recovery room in stable condition. There were no complications and no noted changes on neuromonitoring throughout the procedure. COMPLICATIONS: None. /[id number]/MODL MTDD
[2017-12-17] MEDS ORDERED: NS 1,000 ML IV SCH (15:15)
--- NOTE | 2017-12-17 16:12 | PDMN ---
Medical Necessity Medical necessity: est los>2mn s/p S/I joint fusion, lami w/bilat facetectomies , T11-13, T12-L1, L2-3, L3-4; admit to ICU post op r/t multiple comorbid conditions: afib on AC, ST 3 CKD, hx bladder CA w/ileal conduit; requires close monitoring, PT/OT prior to d/c, and safe dispo; per order, H&P and PA statement 12/17/17
[2017-12-17 16:28] LABS: PLATELET COUNT 174 10^3/uL (150-400)
[2017-12-17] MEDS: POLYETHYLENE GLYCOL 3350 17 GM PKT PO SCH (17:25)
[2017-12-17] MEDS: ceFAZolin 2 GM/SWFI 2 GM/20 ML SYR IVP SCH (17:51)
--- NOTE | 2017-12-17 18:37 | GCON ---
[f rep st] CONSULTATION PIPE SUPERVISOR CONSULTATION The patient examined postoperatively after receiving extensive spine surgery. HISTORY OF PRESENT ILLNESS: The patient is a pleasant 72-year-old white male with a past medical his tory of atrial fibrillation, chronic renal insufficiency, bladder cancer, hypertension, gastroesophag eal reflux disease. Again, he is examined postoperatively after receiving extensive spine surgery. In discussion with the patient, he states that he feels somewhat better. He still is a little sluggi sh after anesthesia. He states the pain is well controlled currently. He denies any chest pain, ple uritic-type chest pain, or angina equivalent. There is no fever or night sweats. He is currently re sting comfortably. His is at the bedside. A 10-point review of systems is performed and is neg ative except for what is written in HPI. PAST MEDICAL HISTORY: Atrial fibrillation, chronic renal insufficiency, bladder cancer, hypertension , gastroesophageal reflux disease. PAST SURGICAL HISTORY: Ventral hernia repair, cystectomy, urostomy, and ileal conduit, hip surgery a nd previous spine surgery. ALLERGIES: Morphine and NSAIDs. SOCIAL HISTORY: Previous heavy smoker, none since 1975. He drinks sick daily alcohol. He is marrie d, has excellent family support. FAMILY HISTORY: Noncontributory. PHYSICAL EXAM: VITAL SIGNS: Blood pressure is 153/83, pulse is 58, respiration 11. He is afebrile, oxygen saturation 94% on supplemental oxygen. GENERAL: He is a mildly overweight, 72-year-old whit e male who is resting comfortably on supplemental oxygen. HEENT: Eyes are PERRLA, EOMI. Throat kya ws no erythema nor tonsillar hypertrophy. NECK: Supple. No cervical adenopathy. HEART: Regular r ate and rhythm with a 2/6 systolic murmur left sternal border without radiation. LUNGS: Diminished breath sounds, but no wheeze. ABDOMEN: Soft, nontender. Bowel sounds are present. EXTREMITIES: N o clubbing, cyanosis, or edema. LABORATORIES: INR is 1.26. IMPRESSION: 1. Minimally invasive sacroiliac joint fusion. 2. Decompressive laminectomy. 3. Severe spinal stenosis T11 through T12, L1 through L4. 4. History of atrial fibrillation. 5. History of bladder cancer. 6. Hypertension. 7. Gastroesophageal reflux disease. 8. Chronic back pain. 9. Chronic renal insufficiency. RECOMMENDATIONS: 1. Adequate pain control. 2. DVT and PE prophylaxis. 3. Stress ulcer prophylaxis. 4. Aggressive hydration. 5. Follow BUN and creatinine closely. 6. PT/OT. /[id number]/MODL
[2017-12-17] MEDS: SENNOSIDES/DOCUSATE SODIUM TAB PO SCH (20:48)
[2017-12-17] MEDS: AMIODARONE HCL 200 MG TAB PO SCH (20:49)
[2017-12-17] MEDS: PANTOPRAZOLE SODIUM 40 MG TAB PO SCH (20:49)
[2017-12-17] MEDS: MELATONIN 3 MG TAB PO SCH (20:49)
[2017-12-17] MEDS ORDERED: FAMOTIDINE 20 MG TAB PO SCH (21:00)
[2017-12-17] MEDS ORDERED: NON-FORMULARY NEW DRUG (Omeprazole [Prilosec 20 Mg] 20 MG) PO SCH (21:00)
[2017-12-17] MEDS: oxyCODONE IR 5 MG TAB PO PRN (21:04)
[2017-12-17] MEDS ORDERED: hydrALAZINE 20 MG/ML VIAL IVP PRN (21:49)
[2017-12-18] MEDS: POLYETHYLENE GLYCOL 3350 17 GM PKT PO SCH ×4 (00:13→22:39)
[2017-12-18] MEDS: ceFAZolin 2 GM/SWFI 2 GM/20 ML SYR IVP SCH (01:47)
[2017-12-18 05:10] LABS: PLATELET COUNT 160 10^3/uL (150-400)
[2017-12-18] MEDS: oxyCODONE IR 5 MG TAB PO PRN ×3 (05:50→17:33)
[2017-12-18] MEDS: LEVOTHYROXINE 50 MCG TAB PO SCH (05:51)
[2017-12-18] MEDS: METHOCARBAMOL 750 MG TAB PO PRN ×2 (05:51→20:04)
--- NOTE | 2017-12-18 07:15 | SOAPPROG ---
SOAP Progress Note Assessment/Plan: Assessment: POP#1 sp T11-L4 laminectomy and right sided SI joint fusion. Doing well. Toes and fingers cold back and leg pain well controlled History of ETOH use. Plan: Continue ANDREW PT/OT Will obtain hospitalist consult for assist with medical issues. Watch for DTs. Subjective: awake, alert, pain controlled. states he woke from surgery with cold bilateral finger and toes and some purple discoloration Objective: Vital Signs Temp Pulse Resp BP Pulse Ox 36.6 C 79 18 120/70 92 12/17/17 20:00 12/18/17 06:00 12/18/17 06:00 12/18/17 06:00 12/18/17 06:00 Microbiology 12/17/17 11:08 Gram Stain - Final Back - Eswab Laboratory Results 12/18/17 05:00 12/18/17 05:00 12/17/17 12/18/17 12/19/17 05:59 05:59 05:59 Intake Total 6033 Output Total 2490 Balance 3543 PT 16.0 SEC (12.0-15.0) H 12/17/17 06:42 INR 1.26 (0.83-1.16) H 12/17/17 06:42 Incision: Dressing dry. ANDREW: 390 ml/ since surgery Neuro: HERRING, sens +LT right great toe is purplish fingers and toes cool bilaterally 5/5 strength in bilat LE ICD10 Worksheet Patient Problems: Problems Problem Status Onset Atrial flutter Acute Primary localized osteoarthritis of right knee Acute History of primary bladder cancer Chronic Parastomal hernia of ileal conduit Chronic
[2017-12-18] MEDS: SENNOSIDES/DOCUSATE SODIUM TAB PO SCH ×2 (08:54→20:04)
[2017-12-18] MEDS: ATORVASTATIN CALCIUM 20 MG TAB PO SCH (08:54)
[2017-12-18] MEDS: ENOXAPARIN 40 MG/0.4 ML SYR SC SCH (08:55)
[2017-12-18] MEDS ORDERED: ATENOLOL 50 MG TAB PO SCH (09:00)
--- NOTE | 2017-12-18 09:41 | PDINTPN ---
Director Health Progress Note Assessment/Plan: Assessment: * Status post minimally invasive sacroiliac joint fusion, decompressive laminectomy T11 through T12-L1 through L4 * Pain-well controlled * Atrial fibrillation-controlled * History of bladder cancer * Gastroesophageal reflux disease * Hypertension-blood pressure stable * Nutrition-good appetite * PT/OT * Ambulation Subjective: Sitting up in chair. Pain well controlled. Good appetite. Objective: Vital Signs Temp Pulse Resp BP Pulse Ox 37.0 C 77 20 136/76 H 94 12/18/17 08:00 12/18/17 08:00 12/18/17 08:00 12/18/17 08:00 12/18/17 08:00 Microbiology 12/17/17 11:08 Gram Stain - Final Back - Eswab Laboratory Results 12/18/17 05:00 12/18/17 05:00 12/17/17 12/18/17 12/19/17 05:59 05:59 05:59 Intake Total 6033 911 Output Total 2490 350 Balance 3543 561 PT 16.0 SEC (12.0-15.0) H 12/17/17 06:42 INR 1.26 (0.83-1.16) H 12/17/17 06:42 - Time Spent With Patient Time Spent With Patient: 25 min of time spent with patient, over 1/2 involved with coordination of care or counseling. Physical Exam - Physical Exam General Appearance: WD/WN, alert, no apparent distress EENT: PERRL/EOMI, normal ENT inspection, pharynx normal, TMs normal Neck: non-tender, full range of motion, supple, normal inspection Respiratory: chest non-tender, lungs clear, normal breath sounds Cardiac/Chest: normal peripheral pulses, regular rate, rhythm Peripheral Pulses: 2+: carotid (R), carotid (L), femoral (R), femoral (L), dorsalis-pedis (R), dorsalis-pedis (L) Abdomen: normal bowel sounds, non-tender, soft Male Genitalia: deferred Rectal: deferred Skin: normal color, warm/dry Extremities: normal range of motion, non-tender, normal inspection, normal capillary refill Neuro/Psych: no motor/sensory deficits, alert, normal mood/affect, oriented x 3 ICD10 Worksheet Patient Problems: Problems Problem Status Onset Atrial flutter Acute Primary localized osteoarthritis of right knee Acute History of primary bladder cancer Chronic Parastomal hernia of ileal conduit Chronic
--- NOTE | 2017-12-18 10:54 | ASMTCMCOM ---
CM Note CM Note Notes: Patient is POD #1 T11-L4 laminectomy with R S1 joint fusion. PT/OT have been ordered. Patient lives with his Genevieve. Discharge needs are TBD; Case Management will follow. Date Signed: 12/18/2017 10:53 AM Electronically Signed By:Elyse Arciniega RN
[2017-12-18] MEDS: ATENOLOL 25 MG TAB PO SCH (12:56)
--- NOTE | 2017-12-18 13:37 | POSTANESTH ---
Post Anesthetic Evaluation Cardiovascular Status: Normal, Stable, Similar to Pre-Op Cond Respiratory Status: Normal, Stable, Similar to Pre-op Cond. Level of Consciousness/Mental Status: Can Participate in Eval, Alert and Oriented Pain Control: Adequate, Prn Tx Ordered Nausea/Vomiting Control: Adequate, Prn Tx Ordered Complications Possibly Related to Anesthesia: None Noted
[2017-12-18] MEDS ORDERED: LORazepam 2 MG/ML INJ IVP PRN (16:25)
[2017-12-18] MEDS ORDERED: LORazepam 1 MG TAB PO PRN (16:26)
--- NOTE | 2017-12-18 16:31 | PDHOSCONS ---
History and Physical - Chief Complaint medical mgmt - History of Present Illness Referring team: Neurosurgery We have been asked to provide consultation regarding medical mgmt for this patient with a hx of Afib, chronic anticoagulation, and daily ETOH use. He is a 72 yo male who was admitted for spinal surgery. He has done appropriately after surgery and was transitioned from the ICU to step down unit today. He continues to do well. He has a hx of pAfib and in in SR. He has a hx of chronic AC with Warfarin but this was stopped prior to surgery. He is currently on home medications. He is on Lovenox on DVT proph doses. He appears comfortable. He denies pain. He has a hx of Chronic renal insufficiency but overall his Cr. is better than usual. He has a Urostomy bag which is draining well. PMHx: afib, chronic AC, chronic renal insufficiency, bladder cancer, HTN PSHx: ventral hernia repair, cystectomy, urostomy, ileal conduit, hip surgery, spinal surgery Soc: daily ETOH (repors 2 beers), no Tobacco, no illicits FmHx: non contributory History Information - Allergies/Home Medication List Allergies/Adverse Reactions: morphine [Morphine] Allergy (Intermediate, Verified 05/03/17 15:40) IV MORPHINE MAKES HIM DIZZY NSAIDS (Non-Steroidal Anti-Inflamma Allergy (Verified 05/03/17 15:40) Other-Enter Comments Home Medications: Atorvastatin Calcium [Lipitor 20 mg (*)] 20 mg PO DAILY 04/29/16 [Last Taken 1 Day Ago ~12/16/17] Omeprazole [Prilosec 20 mg] 20 mg PO HS 11/12/16 [Last Taken 1 Day Ago ~12/16/17 ] Oxymetazoline HCl [Afrin] 1 spray EACHNARE HS PRN 05/03/17 [Last Taken 1 Day Ago ~12/16/17] Warfarin Sodium [Coumadin 5MG (*)] 2.5 mg PO SUMOWEFRSA@05/03/17 [Last Taken 12/11/17] Warfarin Sodium [Coumadin 5MG (*)] 5 mg PO TUTH@05/03/17 [Last Taken 12/12/17 ] Amiodarone HCl [Pacerone (*)] 200 mg PO HS 11/27/17 [Last Taken 1 Day Ago ~12/16] Atenolol [Tenormin 50 mg (*)] 25 mg PO DAILY 11/27/17 [Last Taken 1 Day Ago ~09/23] Herbals/Supplements -Info Only 1 ea PO DAILY 11/27/17 [Last Taken 1 Month Ago ~ 11/19/17] Levothyroxine [Synthroid 50 mcg (*)] 50 mcg PO DAILY06 11/27/17 [Last Taken 1 Day Ago ~12/16/17] Melatonin [Melatonin 3 MG (*)] 3 mg PO HS 11/27/17 [Last Taken 1 Day Ago ~] I have personally reviewed and updated: medical history, social history - Social History Smoking Status: Former smoker Alcohol Use: None Review of Systems Review of Systems: ROS: 10pt was reviewed & negative except for what was stated in HPI & below Physical Exam Physical Exam: Temp Pulse Resp BP Pulse Ox 37.0 C 88 23 H 129/77 H 95 12/18/17 16:00 12/18/17 16:00 12/18/17 16:00 12/18/17 16:00 12/18/17 16:00 O2 (L/minute) 2 Constitutional: no apparent distress Eyes: PERRL, EOMI Ears, Nose, Mouth, Throat: moist mucous membranes, hearing normal Cardiovascular: regular rate and rhythym, No JVD, No edema Respiratory: no respiratory distress, no rales or rhonchi Gastrointestinal: normoactive bowel sounds, soft, non-tender abdomen Skin: warm Neurologic: AAOx3 Psychiatric: interacting appropriately, not anxious, not encephalopathic Lymph, Heme, Immunologic: no cervical LAD Lab Data & Imaging Review 12/18/17 05:00 12/18/17 05:00 WBC 6.16 10^3/uL (3.80-9.50) 12/18/17 05:00 RBC 3.00 10^6/uL (4.40-6.38) L 12/18/17 05:00 Hgb 10.9 g/dL (13.7-17.5) L 12/18/17 05:00 Hct 33.4 % (40.0-51.0) L 12/18/17 05:00 MCV 111.3 fL (81.5-99.8) H 12/18/17 05:00 MCH 36.3 pg (27.9-34.1) H 12/18/17 05:00 MCHC 32.6 g/dL (32.4-36.7) 12/18/17 05:00 RDW 14.0 % (11.5-15.2) 12/18/17 05:00 Plt Count 160 10^3/uL (150-400) 12/18/17 05:00 MPV 8.9 fL (8.7-11.7) 12/18/17 05:00 Neut % (Auto) 75.3 % (39.3-74.2) H 12/18/17 05:00 Lymph % (Auto) 7.8 % (15.0-45.0) L 12/18/17 05:00 Kay % (Auto) 14.3 % (4.5-13.0) H 12/18/17 05:00 Eos % (Auto) 1.5 % (0.6-7.6) 12/18/17 05:00 Baso % (Auto) 0.6 % (0.3-1.7) 12/18/17 05:00 Nucleat RBC Rel Count 0.0 % (0.0-0.2) 12/18/17 05:00 Absolute Neuts (auto) 4.64 10^3/uL (1.70-6.50) 12/18/17 05:00 Absolute Lymphs (auto) 0.48 10^3/uL (1.00-3.00) L 12/18/17 05:00 Absolute Monos (auto) 0.88 10^3/uL (0.30-0.80) H 12/18/17 05:00 Absolute Eos (auto) 0.09 10^3/uL (0.03-0.40) 12/18/17 05:00 Absolute Basos (auto) 0.04 10^3/uL (0.02-0.10) 12/18/17 05:00 Absolute Nucleated RBC 0.00 10^3/uL (0-0.01) 12/18/17 05:00 Immature Gran % 0.5 % (0.0-1.1) 12/18/17 05:00 Immature Gran # 0.03 10^3/uL (0.00-0.10) 12/18/17 05:00 PT 16.0 SEC (12.0-15.0) H 12/17/17 06:42 INR 1.26 (0.83-1.16) H 12/17/17 06:42 Sodium 140 mEq/L (135-145) 12/18/17 05:00 Potassium 4.9 mEq/L (3.5-5.2) 12/18/17 05:00 Chloride 115 mEq/L (97-110) H 12/18/17 05:00 Carbon Dioxide 16 mEq/l (22-31) L 12/18/17 05:00 Anion Gap 9 mEq/L (8-16) 12/18/17 05:00 BUN 23 mg/dL (7-23) 12/18/17 05:00 Creatinine 1.7 mg/dL (0.7-1.3) H 12/18/17 05:00 Estimated GFR 40 12/18/17 05:00 Glucose 109 mg/dL (70-100) H 12/18/17 05:00 Calcium 7.8 mg/dL (8.5-10.4) L 12/18/17 05:00 Assessment & Plan Assessment: #s/p Spinal surgery #pAfib #chronic AC, on hold #Chronic daily ETOH use, not in WD #Chronic renal insufficiency, Cr is better than baseline #Urostomy #chronic HTN Plan: Post op care per primary cont current meds restart AC once ok by primary cont Lovenox for DVT proph PT/OT monitor Cr Does not appear in WD, will provide Ativan PRN thank you for this consult, we will follow along.
[2017-12-18] MEDS: MELATONIN 3 MG TAB PO SCH (20:04)
[2017-12-18] MEDS: PANTOPRAZOLE SODIUM 40 MG TAB PO SCH (20:04)
[2017-12-18] MEDS: AMIODARONE HCL 200 MG TAB PO SCH (20:06)
[2017-12-19] MEDS: LEVOTHYROXINE 50 MCG TAB PO SCH (05:09)
[2017-12-19] MEDS: METHOCARBAMOL 750 MG TAB PO PRN (05:09)
[2017-12-19] MEDS: oxyCODONE IR 5 MG TAB PO PRN ×4 (05:09→21:57)
--- NOTE | 2017-12-19 08:58 | NEUSURGPN ---
Assessment/Plan: Assessment: POP#2 sp T11-L4 laminectomy and right sided SI joint fusion. Plan: Continue ANDREW - remove at noon today Appreciate hospitalists following for medical issues PT/OT left knee pain - add ice pack. If no improvement can get left knee xrays Pain management - continue current regimen left leg swelling, non-tender, pitting edema. If swelling gets worse or pt has any pain/shortness of breath will get doppler to r/o dvt TEDs, SCDs, lovenox Watch for DTs. Dispo - therapies recommending SNF. Work on obtaining placement. Possible DC tomorrow if doing well Call NS with any questions or concerns Subjective: Pt resting in chair, states his left knee and back are painful. Objective: AAOx3 NAD VSS MAEx4 Motor 5/5 BLE Incision dressed cdi ANDREW drain in place with serosanguineous dc in bulb Urinary Catheter in Place: Yes Urinary Catheter Indication: Other (Use Comment) (urostomy) Neurosurgery Physical Exam - Vitals, I&O, Labs I and O 12/18/17 12/19/17 12/20/17 05:59 05:59 05:59 Intake Total 6033 1736 250 Output Total 2490 2035 Balance 3543 -299 250 Weight 108.862 kg Intake: Oral (ml) 1800 1525 250 IV Intake (ml) 3080 IV Infused (ml) 1153 211 NS W/ 20 KCl/L 1,000 ml @ 1153 211 100 mls/hr IV CONT NIRAV Rx#:[id number] Output: Urine (ml) 1999 1850 Urostomy 1999 1850 Estimated Blood Loss (ml) 100 ANDREW Drain Output (ml) 390 185 Back Guillermo Le 390 185 Other: Number of Voids Urostomy 1 Number of Stools Urostomy 0 Microbiology 12/17/17 11:08 Gram Stain - Final Back - Eswab Vital Signs Temp Pulse Resp BP Pulse Ox 36.8 C 86 16 127/75 H 94 12/19/17 07:57 12/19/17 07:57 12/19/17 07:57 12/19/17 07:57 12/19/17 07:57 Laboratory Results 12/18/17 05:00 12/19/17 04:38 ICD10 Worksheet Patient Problems: Problems Problem Status Onset Atrial flutter Acute Primary localized osteoarthritis of right knee Acute History of primary bladder cancer Chronic Parastomal hernia of ileal conduit Chronic
[2017-12-19] MEDS: POLYETHYLENE GLYCOL 3350 17 GM PKT PO SCH ×3 (09:46→21:59)
[2017-12-19] MEDS: MAGNESIUM HYDROXIDE 30 ML UDCUP PO PRN (09:46)
[2017-12-19] MEDS: ATENOLOL 25 MG TAB PO SCH (09:46)
[2017-12-19] MEDS: SENNOSIDES/DOCUSATE SODIUM TAB PO SCH ×2 (09:47→21:58)
[2017-12-19] MEDS: ENOXAPARIN 40 MG/0.4 ML SYR SC SCH (09:47)
[2017-12-19] MEDS: ATORVASTATIN CALCIUM 20 MG TAB PO SCH (09:47)
--- NOTE | 2017-12-19 10:02 | ASMTCMCOM ---
CM Note CM Note Notes: Chart reviewed for discharge planning purposes. Therapies recommending SNF/inpatient rehab at this point in time. No order for inpatient evaluation yet. CM to follow. Date Signed: 12/19/2017 10:01 AM Electronically Signed By:Pema Bob RN
--- NOTE | 2017-12-19 10:20 | ASMTCMCOM ---
CM Note CM Note Notes: Met with patient. He states he can't due his PT today secondary to right knee pain. Patient states that they live in [place] and if rehab is needed that a facility there would be preferential. Xray of right knee pending. Date Signed: 12/19/2017 10:19 AM Electronically Signed By:Pema Bob RN
--- NOTE | 2017-12-19 12:03 | ASMTCAGE ---
CAGE Do you feel you ought to Answers: No cut down on your drinking or drug use? Do people annoy you by Answers: No criticizing your drinking or drug use? Do you feel guilty about Answers: No your drinking or drug use? 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 Date Signed: 12/19/2017 12:02 PM Electronically Signed By:Pema Bob RN
--- NOTE | 2017-12-19 12:04 | ASMTCMCOM ---
CM Note CM Note Notes: CAGE form done. patient drinks two beers daily and per his CAGE not a problematic drinker. Date Signed: 12/19/2017 12:04 PM Electronically Signed By:Pema Bob RN
[2017-12-19] MEDS: BISACODYL 10 MG SUPP PR PRN (12:26)
--- NOTE | 2017-12-19 15:08 | HOSPPROG ---
Hospitalist Progress Note Assessment/Plan: #s/p Spinal surgery #pAfib, on Amiodarone, Atenolol #chronic AC, on hold #Chronic daily ETOH use, not in WD #Chronic renal insufficiency, Cr is better than baseline #Urostomy #chronic HTN #Left knee medial pain Plan: Await doppler Post op care per primary cont current meds restart AC once ok by primary cont Lovenox for DVT proph PT/OT monitor Cr Does not appear in ETOH WD, will provide Ativan PRN Subjective: c/o of left medial knee pain. Doppler is being obtained. Objective: Vital Signs Temp Pulse Resp BP Pulse Ox 37.2 C 97 19 119/84 H 92 12/19/17 12:00 12/19/17 12:00 12/19/17 12:00 12/19/17 12:00 12/19/17 12:00 Microbiology 12/17/17 11:08 Gram Stain - Final Back - Eswab Laboratory Results 12/18/17 05:00 12/19/17 04:38 12/18/17 12/19/17 12/20/17 05:59 05:59 05:59 Intake Total 6033 1736 250 Output Total 2490 2035 Balance 3543 -299 250 PT 16.0 SEC (12.0-15.0) H 12/17/17 06:42 INR 1.26 (0.83-1.16) H 12/17/17 06:42 - Physical Exam Constitutional: no apparent distress Eyes: PERRL Ears, Nose, Mouth, Throat: moist mucous membranes Cardiovascular: regular rate and rhythym, no murmur, rub, or gallop Respiratory: no respiratory distress, no rales or rhonchi, clear to auscultation Gastrointestinal: normoactive bowel sounds, soft, non-tender abdomen Skin: warm Neurologic: AAOx3 Psychiatric: interacting appropriately, not anxious, not encephalopathic Lymph, Heme, Immunologic: No petechiae ICD10 Worksheet Patient Problems: Problems Problem Status Onset Atrial flutter Acute Primary localized osteoarthritis of right knee Acute History of primary bladder cancer Chronic Parastomal hernia of ileal conduit Chronic
[2017-12-19] MEDS: PANTOPRAZOLE SODIUM 40 MG TAB PO SCH (21:58)
[2017-12-19] MEDS: MELATONIN 3 MG TAB PO SCH (21:58)
[2017-12-19] MEDS: AMIODARONE HCL 200 MG TAB PO SCH (21:58)
--- NOTE | 2017-12-19 22:11 | PDCONSULT ---
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 Denies consitutional fever, chills. Difficulty participating in rehab due to knee effusion and pain. Had a prior episode years ago where Dr. Gonzales pulled fluid out of an arthritic knee which presented similarly. 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 unlabored breathing. hearing intact. Ostomy bag on lateral belly, well-healed abdominal scar. Left knee effusion, ballotable patella. PROM of knee 0-90 degrees and then some more pain. KNee warm with effusion but no erythema. skin non-indurated and soft. SILT S/S/SP/DP/T. 2+ DP pulse. 5/5 EHL/ FHL/TA/GS Imaging: Radiographs of Left knee show lateral joint space narrowing with osteophyte formation, chondrocalcinosis PE: 72y M h/o afib, HTN, bladder cancer and Right knee TKA p/w Left knee OA and effusion after spinal surgery with prone positioning - Suspect that noninfectious effusion presented due to baseline arthritis, possibly irritated from prone positioning (despite good bony prominence padding ) or some irritation to the knee - After discussing risks/benefits of aspiration, pt elected for a therapeutic aspiration for relief and for fluid cultures/crystal/etc. Using sterile preparation and technique, we aspirated ~110cc of straw colored fluid from the knee that did not appear infected nor gouty. A dressing was placed and the compression stocking raised again. - THe patient felt much better after the aspiration and was able to actively range the knee much further. - WBAT LLE - Ice PRN L knee - PT per primary team - will follow cell count, but suspect that this is not infected based on exam, aspiration, and improvement - Followup with me to check on wound in a few weeks as a quick check. Call [phone] to make appointment - Call if ? Jayant Barney
[2017-12-20] MEDS: LEVOTHYROXINE 50 MCG TAB PO SCH (06:06)
[2017-12-20] MEDS: ENOXAPARIN 40 MG/0.4 ML SYR SC SCH (07:53)
[2017-12-20] MEDS: oxyCODONE IR 5 MG TAB PO PRN (08:02)
[2017-12-20] MEDS: ATORVASTATIN CALCIUM 20 MG TAB PO SCH (08:03)
[2017-12-20] MEDS: ATENOLOL 25 MG TAB PO SCH (09:07)
--- NOTE | 2017-12-20 09:07 | NEUSURGPN ---
Assessment/Plan: Assessment: POP#3 sp T11-L4 laminectomy and right sided SI joint fusion. Plan: DC ANDREW drain Appreciate hospitalists following for medical issues PT/OT left knee pain - has been evaluated by Dr. Barney of orthopedics and had 110cc drawn off of knee. + CPPD in fluid. Follow up with ortho per recommendations. Pain management - continue current regimen left leg swelling- doppled US negative for DVT TEDs, SCDs, lovenox Watch for DTs. Dispo - therapies recommending SNF. Work on obtaining placement. Pt states his is checking out a rehab center. He would really prefer to go home with [facility]. Will see how he does with therapies today and work towards finalizing DC plan. Call NS with any questions or concerns Subjective: Pt resting in bed, states he is able to do more with his left knee after aspiration. States back pain is improving somewhat. Objective: AAOx3 NAD VSS MAEx4 Motor 5/5 BLE - somewhat pain limited in left knee +LT Incision dressed Urinary Catheter in Place: Yes Urinary Catheter Indication: Other (Use Comment) (urostomy) Neurosurgery Physical Exam - Vitals, I&O, Labs I and O 12/19/17 12/20/17 12/21/17 05:59 05:59 05:59 Intake Total 1736 1000 Output Total 5 1870 Balance -299 -870 Intake: Oral (ml) 1525 1000 IV Infused (ml) 211 NS W/ 20 KCl/L 1,000 ml @ 211 100 mls/hr IV CONT NIRAV Rx#:[id number] Output: Urine (ml) 1850 1750 Urostomy 1850 1750 ANDREW Drain Output (ml) 185 120 Back Guillermo Le 185 120 Other: Number of Voids Urostomy 1 1 Number of Stools Urostomy 1 Microbiology 12/19/17 21:50 Gram Stain - Final Knee - Aspirate 12/17/17 11:08 Gram Stain - Final Back - Eswab Vital Signs Temp Pulse Resp BP Pulse Ox 36.9 C 68 20 109/70 90 L 12/20/17 08:00 12/20/17 08:00 12/20/17 08:00 12/20/17 08:00 12/20/17 08:00 Laboratory Results 12/19/17 15:11 12/19/17 04:38 ICD10 Worksheet Patient Problems: Problems Problem Status Onset Atrial flutter Acute Primary localized osteoarthritis of right knee Acute History of primary bladder cancer Chronic Parastomal hernia of ileal conduit Chronic
[2017-12-20] MEDS: SENNOSIDES/DOCUSATE SODIUM TAB PO SCH ×2 (09:08→21:34)
[2017-12-20] MEDS: POLYETHYLENE GLYCOL 3350 17 GM PKT PO SCH ×3 (09:08→21:33)
--- NOTE | 2017-12-20 11:29 | ASMTCMCOM ---
CM Note CM Note Notes: Per patient preferences, referrals to [facility] and [facility]. CM to follow. Date Signed: 12/20/2017 11:29 AM Electronically Signed By:CUATE Guerrero
--- NOTE | 2017-12-20 12:53 | HOSPPROG ---
Hospitalist Progress Note Assessment/Plan: #s/p Spinal surgery #pAfib, on Amiodarone, Atenolol #chronic AC, on hold #Chronic daily ETOH use, not in WD #Chronic renal insufficiency, Cr is better than baseline #Urostomy #chronic HTN #Left knee medial pain, Left knee effusion, s/p left knee aspiration -Ortho following -No e/o of infection or gout -likely from OA Plan: Post op care per primary cont current meds restart AC once ok by primary cont Lovenox for DVT proph PT/OT Does not appear in ETOH WD, will cont provide Ativan PRN Dispo: per primary Subjective: no O/n events. no new complaints. no cp or sob. Objective: Vital Signs Temp Pulse Resp BP Pulse Ox 37.2 C 69 20 100/59 L 91 L 12/20/17 11:22 12/20/17 11:22 12/20/17 11:22 12/20/17 11:22 12/20/17 11:22 Microbiology 12/17/17 11:08 Gram Stain - Final Back - Eswab 12/19/17 21:50 Gram Stain - Final Knee - Aspirate Laboratory Results 12/19/17 15:11 12/19/17 04:38 12/19/17 12/20/17 12/21/17 05:59 05:59 05:59 Intake Total 1736 1000 590 Output Total 2035 1870 Balance -299 -870 590 PT 16.0 SEC (12.0-15.0) H 12/17/17 06:42 INR 1.26 (0.83-1.16) H 12/17/17 06:42 - Physical Exam Constitutional: no apparent distress Eyes: PERRL, EOMI Ears, Nose, Mouth, Throat: moist mucous membranes, hearing normal Cardiovascular: regular rate and rhythym, No edema Respiratory: no respiratory distress, clear to auscultation Gastrointestinal: normoactive bowel sounds, soft, non-tender abdomen Skin: warm Neurologic: AAOx3 Psychiatric: interacting appropriately, not anxious, not encephalopathic Lymph, Heme, Immunologic: No petechiae ICD10 Worksheet Patient Problems: Problems Problem Status Onset Atrial flutter Acute Primary localized osteoarthritis of right knee Acute History of primary bladder cancer Chronic Parastomal hernia of ileal conduit Chronic
[2017-12-20] MEDS: MELATONIN 3 MG TAB PO SCH (21:34)
[2017-12-20] MEDS: PANTOPRAZOLE SODIUM 40 MG TAB PO SCH (21:34)
[2017-12-20] MEDS: AMIODARONE HCL 200 MG TAB PO SCH (21:34)
[2017-12-21] MEDS: LEVOTHYROXINE 50 MCG TAB PO SCH (05:14)
[2017-12-21] MEDS: MAGNESIUM HYDROXIDE 30 ML UDCUP PO PRN (05:18)
[2017-12-21] MEDS: ENOXAPARIN 40 MG/0.4 ML SYR SC SCH ×2 (08:11→10:25)
[2017-12-21] MEDS: POLYETHYLENE GLYCOL 3350 17 GM PKT PO SCH (08:12)
[2017-12-21] MEDS: ATORVASTATIN CALCIUM 20 MG TAB PO SCH (08:13)
[2017-12-21] MEDS: ATENOLOL 25 MG TAB PO SCH (08:13)
[2017-12-21] MEDS: BISACODYL 10 MG SUPP PR PRN (08:14)
[2017-12-21] MEDS: SENNOSIDES/DOCUSATE SODIUM TAB PO SCH (08:14)
[2017-12-21 08:16] VITALS: BP 129/75
[2017-12-21 08:25] VITALS: PULSE 68; RESP 16; TEMP 99; O2SAT 90
[2017-12-21] MEDS: oxyCODONE IR 5 MG TAB PO PRN (09:08)
--- NOTE | 2017-12-21 10:34 | NEUSURGPN ---
Date of Surgery: 12/17/17 Post Op Day: 4 Assessment/Plan: POP#4 sp T11-L4 laminectomy and right sided SI joint fusion. Plan: - neuro stable - appreciate hospitalists following for medical issues - PT/OT - left knee pain - has been evaluated by Dr. Barney of orthopedics and had 110cc drawn off of knee. + CPPD in fluid. Knee pain improved after aspiration. - pain controlled on current regimen - left leg swelling- doppled US negative for DVT - TEDs, SCDs, lovenox - Watch for DTs - constipation: bowel regimen, patient trying suppository this morning - ok to resume Coumadin today (ordered) Dispo - ok for discharge to rehab once arranged and has BM. Call NS with any questions or concerns Subjective: Pain is controlled. Would like to have a BM. Passing gas. Objective: Awake. Alert. PERRL. Following commands Strength full at 5/5 Sensation intact Neurosurgery Physical Exam - Vitals, I&O, Labs I and O 12/20/17 12/21/17 12/22/17 05:59 05:59 05:59 Intake Total 1000 1090 Output Total 1870 450 Balance -870 640 Intake: Oral (ml) 1000 1090 Output: Urine (ml) 1750 450 Urostomy 1750 450 ANDREW Drain Output (ml) 120 Back Guillermo Le 120 Other: Intake Quantity Yes Sufficient Number of Voids Urostomy 1 Number of Stools Urostomy 1 Microbiology 12/19/17 21:50 Gram Stain - Final Knee - Aspirate 12/17/17 11:08 Gram Stain - Final Back - Eswab Vital Signs Temp Pulse Resp BP Pulse Ox 37.2 C 68 16 129/75 H 90 L 12/21/17 08:00 12/21/17 08:00 12/21/17 08:00 12/21/17 08:13 12/21/17 08:00 Laboratory Results 12/19/17 15:11 12/19/17 04:38 ICD10 Worksheet Patient Problems: Problems Problem Status Onset Atrial flutter Acute Primary localized osteoarthritis of right knee Acute History of primary bladder cancer Chronic Parastomal hernia of ileal conduit Chronic
--- NOTE | 2017-12-21 12:43 | PDIAF ---
- Diagnosis Diagnosis: sacroillitis, lumbar stenosis Code Status: Full Code - Medication Management Discharge Medications: Medications to Continue on Transfer Atorvastatin Calcium [Lipitor 20 mg (*)] 20 mg PO DAILY 04/29/16 [Last Taken 1 Day Ago ~12/16/17] Omeprazole [Prilosec 20 mg] 20 mg PO HS 11/12/16 [Last Taken 1 Day Ago ~12/16/17 ] Oxymetazoline HCl [Afrin] 1 spray EACHNARE HS PRN 05/03/17 [Last Taken 1 Day Ago ~12/16/17] Warfarin Sodium [Coumadin 5MG (*)] 2.5 mg PO SUMOWEFRSA@05/03/17 [Last Taken 12/11/17] Warfarin Sodium [Coumadin 5MG (*)] 5 mg PO TUTH@05/03/17 [Last Taken 12/12/17 ] Amiodarone HCl [Pacerone (*)] 200 mg PO HS 11/27/17 [Last Taken 1 Day Ago ~12/16] Atenolol [Tenormin 50 mg (*)] 25 mg PO DAILY 11/27/17 [Last Taken 1 Day Ago ~09/23] Levothyroxine [Synthroid 50 mcg (*)] 50 mcg PO DAILY06 11/27/17 [Last Taken 1 Day Ago ~12/16/17] Melatonin [Melatonin 3 MG (*)] 3 mg PO HS 11/27/17 [Last Taken 1 Day Ago ~] Methocarbamol [Robaxin 750 mg (*)] 750 mg PO QID PRN #60 tab 12/21/17 [Last Taken Unknown] Sennosides/Docusate Sodium [Senokot-S] 1 - 2 tab PO BID tab 12/21/17 [Last Taken Unknown] oxyCODONE IR [Oxycodone Ir (*)] 5 - 10 mg PO Q4HRS PRN #60 tab 12/21/17 [Last Taken Unknown] Discharge Medications: Refer to the Discharge Home Medication list for PRN reason. PICC Care - Routine: N/A - Orders Services needed: Physical Therapy, Occupational Therapy Diet Recommendation: no restrictions on diet Diet Texture: Regular Texture Diet Wound Care Instructions: OK to shower and get incision wet. Be gentle. No scrubbing Sutures/[place] Site: Follow up to see Dr. Peoples in 2 weeks [phone] to check incision Activity/Weight Bearing Restrictions: No lifting more than 10 pounds or bending/ twisting. Patient does not need a brace. - Labs/Radiology PT/INR Date: 12/25/17 - Follow Up Care Current Providers and Referrals: MARIA DE JESUS FOURNIER [Primary Care Provider] - Nik Barney MD [Medical Doctor] - follow up in 2 weeks David Peoples MD [Medical Doctor] - follow up in 2 weeks
[2017-12-21] MEDS ORDERED: WARFARIN SODIUM 2.5 MG TAB PO ONE (13:45)
--- NOTE | 2017-12-21 15:28 | HOSPPROG ---
Hospitalist Progress Note Assessment/Plan: #s/p Spinal surgery #pAfib, on Amiodarone, Atenolol #chronic AC, on hold #Chronic daily ETOH use, not in WD #Chronic renal insufficiency, Cr is better than baseline #Urostomy #chronic HTN #Left knee medial pain, Left knee effusion, s/p left knee aspiration -Ortho following -No e/o of infection or gout -likely from OA Plan: ok for discharge from a medica perspective Subjective: no cp or SOB. NO n/V. Wants to discharge. Objective: Vital Signs Temp Pulse Resp BP Pulse Ox 37.2 C 68 16 129/75 H 90 L 12/21/17 08:00 12/21/17 08:00 12/21/17 08:00 12/21/17 08:13 12/21/17 08:00 Microbiology 12/19/17 21:50 Gram Stain - Final Knee - Aspirate 12/17/17 11:08 Gram Stain - Final Back - Eswab Laboratory Results 12/19/17 15:11 12/19/17 04:38 12/20/17 12/21/17 12/22/17 05:59 05:59 05:59 Intake Total 1000 1090 Output Total 1870 450 700 Balance -870 640 -700 PT 16.0 SEC (12.0-15.0) H 12/17/17 06:42 INR 1.26 (0.83-1.16) H 12/17/17 06:42 - Physical Exam Constitutional: no apparent distress Eyes: PERRL, EOMI Ears, Nose, Mouth, Throat: moist mucous membranes, hearing normal Cardiovascular: No edema Respiratory: no respiratory distress Gastrointestinal: normoactive bowel sounds, soft, non-tender abdomen Skin: warm Neurologic: AAOx3 Psychiatric: interacting appropriately, not anxious, not encephalopathic, thought process linear Lymph, Heme, Immunologic: No petechiae ICD10 Worksheet Patient Problems: Problems Problem Status Onset Atrial flutter Acute Primary localized osteoarthritis of right knee Acute History of primary bladder cancer Chronic Parastomal hernia of ileal conduit Chronic
[2017-12-21] MEDS ORDERED: WARFARIN SODIUM 5 MG TAB PO SCH (16:00)
--- NOTE | 2017-12-22 15:32 | ASDISCHSUM ---
Discharge Information Plan Status: Medically Cleared to Leave: Discharge Date:12/21/2017 04:22 PM CM D/C Disposition: ADT D/C Disposition:[facility] Facility Projected Discharge Date:12/20/2017 11:00 AM Transportation at D/C: Discharge Delay Reason: Follow-Up Date:12/20/2017 11:00 AM Discharge Slot: Final Diagnosis: Placement Information Referral Type:*[facility]/SNF Referral ID:[id number] Provider Name:Erin Obando Address 1:[address] Phone Number: Address 2: Fax Number: City:[place] Selection Factors: State:[place] Patient Contact Information Contact Name:MARIA L Relationship: Address:[address] [facility] City:[place] Alternate Phone: [facility] Code:[place] [address] Email: Financial Information Financial Class:Medicare Primary Plan Desc:MEDICARE INPATIENT Primary Plan Number:[id number] Secondary Plan Desc:[employer]/MDR SUPPLEMENT Secondary Plan Number:[id number] Assessment Information [facility] CM Progress Note CM Note CM Note Notes: Patient is POD #1 T11-L4 laminectomy with R S1 joint fusion. PT/OT have been ordered. Patient lives with his Genevieve. Discharge needs are TBD; Case Management will follow. Date Signed: 12/18/2017 10:53 AM Electronically Signed By:Elyse Arciniega RN [facility] CM Progress Note CM Note CM Note Notes: Chart reviewed for discharge planning purposes. Therapies recommending SNF/inpatient rehab at this point in time. No order for inpatient evaluation yet. CM to follow. Date Signed: 12/19/2017 10:01 AM Electronically Signed By:Pema Bob RN [facility] Progress Note CM Note CM Note Notes: Met with patient. He states he can't due his PT today secondary to right knee pain. Patient states that they live in [place] and if rehab is needed that a facility there would be preferential. Xray of right knee pending. Date Signed: 12/19/2017 10:19 AM Electronically Signed By:Pema Bob RN CAGE Questionnaire CAGE Do you feel you ought to Answers: No cut down on your drinking or drug use? Do people annoy you by Answers: No criticizing your drinking or drug use? Do you feel guilty about Answers: No your drinking or drug use? Do you drink or use drugs Answers: No first thing in the morning ([employer] Specialist)? Date Signed: 12/19/2017 12:02 PM Electronically Signed By:Pema Bob RN [facility] Progress Note CM Note CM Note Notes: CAGE form done. patient drinks two beers daily and per his CAGE not a problematic drinker. Date Signed: 12/19/2017 12:04 PM Electronically Signed By:Pema Bob RN [facility] CM Progress Note CM Note CM Note Notes: Per patient preferences, referrals to [facility] and [facility]. CM to follow. Date Signed: 12/20/2017 11:29 AM Electronically Signed By:CUATE Guerrero Case Management Discharge Plan Note Case Management Discharge Discharge Order Complete? Answers: Yes Patient to Obtain Answers: Other Notes: [facility] Transportation Arranged Answers: Other Notes: [facility] will Pick (Date 12/21/2017 04:00 PM & Time) Faxed Final Orders Answers: Yes Family Notified Answers: Yes Discharge Comments Notes: Patient dischargedt to [facility]. Facility arranged transport. Patient's notified and agrees to plan. GIANNA Grant to call report. Date Signed: 12/21/2017 02:27 PM Electronically Signed By:Elyse Arciniega RN Intervention Information
[2017-12-22] MEDS ORDERED: WARFARIN SODIUM 5 MG TAB PO SCH (16:00)
[2017-12-24] MEDS ORDERED: WARFARIN SODIUM 5 MG TAB PO SCH (16:00)
== END 2017-12-21 16:22 | DRG 460 ==
LOC: F3N 05:24 → F2N 14:01 → F3N 12-18 20:41
PROVIDERS: ADMIT Neurological Surgery; ATTEND Neurological Surgery
DX: M46.1 Sacroiliitis, not elsewhere classified (principal); M51.36 Other intervertebral disc degeneration, lumbar region; M48.05 Spinal stenosis, thoracolumbar region; I12.9 Hypertensive chronic kidney disease with stage 1 through stage 4 chronic kidney disease, or unspecified chronic kidney disease; N18.9 Chronic kidney disease, unspecified; I48.0 Paroxysmal atrial fibrillation; K21.9 Gastro-esophageal reflux disease without esophagitis; G89.29 Other chronic pain; M25.462 Effusion, left knee; M17.12 Unilateral primary osteoarthritis, left knee; Z85.51 Personal history of malignant neoplasm of bladder; Z72.89 Other problems related to lifestyle; Z96.651 Presence of right artificial knee joint
CPT/HCPCS: 97116-GP; 97162-GP; 97165-GO; 97530-GP; 97535-GO; C1713; G8978-GP-CK; G8979-GP-CJ; G8987-GO-CK; G8988-GO-CI; J0171; J0690; J1170; J1650; J2370; J2704; J3010; P9041

== ENCOUNTER → 2018-02-24 | Outpatient (CLI) | payer OTHER, MEDICARE | LOC: FIMAGING 13:49 | PROVIDERS: ATTEND Physician Assistant Surgical | DX: M46.1 Sacroiliitis, not elsewhere classified (principal); M51.36 Other intervertebral disc degeneration, lumbar region; M41.9 Scoliosis, unspecified; Z98.890 Other specified postprocedural states ==

== ENCOUNTER → 2018-07-25 | Outpatient (CLI) | payer OTHER, MEDICARE | LOC: FIMAGING 12:14 | PROVIDERS: ATTEND Neurological Surgery | DX: M53.86 Other specified dorsopathies, lumbar region (principal) | CPT/HCPCS: G0472 ==